=== PATIENT | male | born 1945 | race Caucasian/White ===

== ENCOUNTER 2018-02-24 10:11 | Emergency (ER) | payer OTHER ==
[~2018-02-24] VITALS: Ht 170.2 cm; Wt 63.5 kg
[~2018-02-24 10:11] MED LIST: ACCUPRIL PT; ACET325 PT; ACET325UDC; ALBU.083IS IH; ALBU3IS INH; AMOCLA875 PT; AMOX500; AZIT200SU GT; Abreva2 GM; Abreva2 GM TOP; Augmentin 500-1 EACH PO; BISA10S; BISA10S PR; CHLGLU.12S; CODGUAEL PT; CVS DISPOSABLE399 ML; CVS DISPOSABLE399 ML PR; Compro25 MG RC; DIPH12.5EL; DIPH12.5EL PT; DOXE10; DOXE10 PT; FIBERSOURCE; FURO20; Furosemide20 MG PT; GUAI100SY GT; HYDHOMSY PO; HYDROCODONE AP; IBUP400 OT; Ibuprofen Ib200 MG PT; KETO15TC; KETO15TC TOP; LAVAP17G PT; LEVFLO250; LEVFLO500 PO; LEVFLO500 PT; LEVO750 PO; LIDO4TC; LOPE2C; LOPE2C PT; Loperamide2 MG PT; METO10 PT; METO5A PT; MILK OF MAGNESIA; MUPI2TC; MUPI2TC TOP; Milk Of Ma400 MG/5 M PT; NYSTATIN POWDER; PANT40 PT; POTA20LUD; POTA20LUD PT; POTASSIUM; POTASSIUM PT; PRIM250; PRIM250 PT; PRIMIDONE PT; PROC25S; PROC25S PR; PROM6.25SY PO; Pedi-Dri 100,0060 GM TOP; Periogard473 ML TOP; QUIN10; QUIN10 PT; RANI150EL; ROBITUSSIN COU237 ML PT; ROBITUSSIN DM; RXPROMSY PO; SILVER NITRATE; SODPHOSO; TRIPLE ANTIBIO1 EACH TP; Triple Antibi28.4 G1 TP; ZANTAC; ZINCODVICR TOP; Zyrtec10 MG PT; [UNRECOGNIZED DRUG - OTHER]; [UNRECOGNIZED DRUG - OTHER]; [UNRECOGNIZED DRUG - REMARK]; [UNRECOGNIZED DRUG - REMARK]
[2018-02-24 12:40] LABS: BASOPHILS ABSOLUTE AUTO 0.05 K/mm3 (0.00-0.23); BASOPHILS PERCENT AUTO 0 % (0-2); EOSINOPHILS ABSOLUTE AUTO 0.01 K/mm3 (0.00-0.68); EOSINOPHILS PERCENT AUTO 0 % (0-6); Hematocrit 39.7 % (37.0-53.0); Hemoglobin 13.6 g/dL (13.5-17.5); IMMATURE GRAN ABSOLUTE AUTO 0.04 K/mm3 (0.00-0.10); IMMATURE GRAN PERCENT AUTO 0 % (0-1); LYMPHOCYTES ABSOLUTE AUTO 0.94 K/mm3 (0.84-5.20); LYMPHOCYTES PERCENT AUTO 8 % (21-46); MONOCYTES ABSOLUTE AUTO 1.78 K/mm3 (0.16-1.47); MONOCYTES PERCENT AUTO 16 % (4-13); Mean Corpuscular HGB 36.2 pg (26.0-34.0); Mean Corpuscular HGB Conc 34.3 g/dL (31.5-36.5); Mean Corpuscular Volume 106 fL (80-100); Mean Platelet Volume 10.7 fL (9.1-12.4); NEUTROPHILS ABSOLUTE AUTO 8.57 K/mm3 (1.96-9.15); NEUTROPHILS PERCENT AUTO 75 % (41-73); Platelet Count 255 K/mm3 (150-400); RDW Coefficient Variation 12.8 % (11.7-14.2); RDW Standard Deviation 49.5 fL (35.1-46.3); Red Blood Cell Count 3.76 M/mm3 (4.30-5.90); White Blood Cell Count 11.39 K/mm3 (4.00-11.30)
[2018-02-24 13:01] LABS: Alanine Aminotransfer (ALT/SGP 41 U/L (12-78); Albumin/Globulin Ratio 0.6 (0.8-1.8); Alk Phos 165 U/L (50-136); Anion Gap 5 mmol/L (6-16); Aspartate Aminotrans (AST/SGOT 19 U/L (12-37); Bilirubin, Total 0.5 mg/dL (0.1-1.0); Blood Urea Nitrogen 15 mg/dL (8-24); CO2, Blood 30 mmol/L (21-32); Calcium, Blood 8.1 mg/dL (8.5-10.1); Chloride, Blood 93 mmol/L (98-108); Creatinine, Blood 0.42 mg/dL (0.60-1.20); Globulin, Blood 5.1 g/dL (2.2-4.0); Glomerular Filtration Rate >60 (60-); Glucose, Blood 114 mg/dL (70-99); Potassium, Blood 4.6 mmol/L (3.5-5.5); Sodium, Blood 128 mmol/L (136-145); Total Protein, Blood 8.1 g/dL (6.4-8.2); Troponin I <0.015 ng/mL (0.000-0.040)
[2018-02-24] MEDS ORDERED: Zithromax200 MG/5 M PO (13:20)
[2018-02-24] MEDS ORDERED: CETI5 PO (23:52)
[2018-02-24] MEDS ORDERED: DOCU100 PT (23:54)
== END 2018-02-24 13:52 | disposition home or self-care (01) ==
LOC: ER 10:11
PROVIDERS: Physician Assistant
DX: J18.9 Pneumonia, unspecified organism (principal); Z88.5 Allergy status to narcotic agent
CPT/HCPCS: 36415; 71046; 80053; 84484; 85025; 93005; 93010; 94640; 96372; 99284-25; J0696

== ENCOUNTER 2018-02-24 21:57 | Inpatient (IN) | payer OTHER ==
[~2018-02-24] VITALS: Ht 170.2 cm; Wt 64.7 kg
[~2018-02-24 21:57] MED LIST changes: +Zithromax200 MG/5 M PO
[2018-02-24 23:43] LABS: BASOPHILS ABSOLUTE AUTO 0.06 K/mm3 (0.00-0.23); BASOPHILS PERCENT AUTO 1 % (0-2); EOSINOPHILS ABSOLUTE AUTO 0.03 K/mm3 (0.00-0.68); EOSINOPHILS PERCENT AUTO 0 % (0-6); Hematocrit 39.9 % (37.0-53.0); Hemoglobin 13.4 g/dL (13.5-17.5); IMMATURE GRAN ABSOLUTE AUTO 0.03 K/mm3 (0.00-0.10); IMMATURE GRAN PERCENT AUTO 0 % (0-1); LYMPHOCYTES ABSOLUTE AUTO 0.48 K/mm3 (0.84-5.20); LYMPHOCYTES PERCENT AUTO 5 % (21-46); MONOCYTES ABSOLUTE AUTO 1.25 K/mm3 (0.16-1.47); MONOCYTES PERCENT AUTO 13 % (4-13); Mean Corpuscular HGB 36.4 pg (26.0-34.0); Mean Corpuscular HGB Conc 33.6 g/dL (31.5-36.5); Mean Corpuscular Volume 108 fL (80-100); Mean Platelet Volume 10.5 fL (9.1-12.4); NEUTROPHILS ABSOLUTE AUTO 7.95 K/mm3 (1.96-9.15); NEUTROPHILS PERCENT AUTO 81 % (41-73); Platelet Count 220 K/mm3 (150-400); RDW Coefficient Variation 12.7 % (11.7-14.2); RDW Standard Deviation 51.3 fL (35.1-46.3); Red Blood Cell Count 3.68 M/mm3 (4.30-5.90)
[2018-02-24] MEDS ORDERED: CETI5 PO (23:52)
[2018-02-24] MEDS ORDERED: DOCU100 PT (23:54)
[2018-02-25 00:02] LABS: Alanine Aminotransfer (ALT/SGP 38 U/L (12-78); Albumin, Blood 3.1 g/dL (3.4-5.0); Albumin/Globulin Ratio 0.6 (0.8-1.8); Alk Phos 158 U/L (50-136); Anion Gap 7 mmol/L (6-16); Aspartate Aminotrans (AST/SGOT 19 U/L (12-37); Bilirubin, Total 0.4 mg/dL (0.1-1.0); Blood Urea Nitrogen 18 mg/dL (8-24); Bun/Creatinine Ratio 39.4 (12.0-20.0); CO2, Blood 29 mmol/L (21-32); Calcium, Blood 8.1 mg/dL (8.5-10.1); Chloride, Blood 89 mmol/L (98-108); Creatinine, Blood 0.46 mg/dL (0.60-1.20); Globulin, Blood 5.2 g/dL (2.2-4.0); Glomerular Filtration Rate >60 (60-); Glucose, Blood 135 mg/dL (70-99); Potassium, Blood 4.7 mmol/L (3.5-5.5); Sodium, Blood 125 mmol/L (136-145); Total Protein, Blood 8.3 g/dL (6.4-8.2)
--- NOTE | 2018-02-25 03:54 | NUR ---
PT TRANSFER TO UNIT. ASSUMED CARE OF PT APROX 0200. PT IS DEVELOPMENTALLY DELAYED, BUT ALERT. PT HAS BEHAVIOUR ISSUES AND CONTINUOUSLY PULLS ON ANY LINES OR CORDS. PT WAS ADMITTED DUE TO PNA. IV ACCESS WAS NOT ABLE TO BE OBTAINED AT THIS TIME. PT HAS A PEG TUBE FOR FEEDINGS AND MEDS. TELE PLACED, ST IN THE 100'S. BP 151/81. NO EDEMA NOTED ON ASSESSMENT. L/S COARSE W/RHONCHI T/O, PT HAS COPIOUS AMOUNTS OF SPUTUM, SUCTION IS SET UP IN THE ROOM, HOWEVER PT DOES NOT LIKE TO BE SUCTIONED AND IT IS DIFFICULT TO HELP CLEAR HIS AIR WAY. PT IS ON 6L NC W/STATS AT 90% BT PRESENT AND HYPOACTIVE, PEG TUBE IS PLACED IN THE LEFT LOWER QUAD, ABD IS SOFT AND NONTENDER TO PALP. CALL LIGHT IN REACH, BED IS LOCKED AND LOW, WILL CONTINUE TO MONITOR.
[2018-02-25 05:48] LABS: Hematocrit 37.7 % (37.0-53.0); Hemoglobin 12.6 g/dL (13.5-17.5); Mean Corpuscular HGB 35.8 pg (26.0-34.0); Mean Corpuscular HGB Conc 33.4 g/dL (31.5-36.5); Mean Corpuscular Volume 107 fL (80-100); Mean Platelet Volume 11.1 fL (9.1-12.4); Platelet Count 230 K/mm3 (150-400); RDW Coefficient Variation 12.7 % (11.7-14.2); RDW Standard Deviation 50.4 fL (35.1-46.3); Red Blood Cell Count 3.52 M/mm3 (4.30-5.90)
[2018-02-25 06:04] LABS: Anion Gap 5 mmol/L (6-16); Blood Urea Nitrogen 14 mg/dL (8-24); Bun/Creatinine Ratio 33.3 (12.0-20.0); CO2, Blood 30 mmol/L (21-32); Calcium, Blood 8.2 mg/dL (8.5-10.1); Chloride, Blood 92 mmol/L (98-108); Creatinine, Blood 0.42 mg/dL (0.60-1.20); Glomerular Filtration Rate >60 (60-); Glucose, Blood 121 mg/dL (70-99); Potassium, Blood 4.9 mmol/L (3.5-5.5); Sodium, Blood 127 mmol/L (136-145)
--- NOTE | 2018-02-25 07:39 | NUR ---
SHIFT SUMMARY. NO ACUTE CHANGES NOTED, PT'S O2 REQUIREMENTS HAVE DECREASED FROM 6L NC TO 3.5 L NC. PT L/S STILL CONSIST OF COARSE RHONCHI T/O, PT HAS REQURIED SUCTIONING WELL. PT'S VS HAVE BEEN STABLE T/O THIS SHIFT. CAREGIVER AT THE BEDSIDE T/O SHIFT. PT IS A VERY HIGH ASPRIATION RISK, HOB AT 30 DEGREE. CALL LIGHT IN REACH, BED IS LOCKED AND LOW, WILL CONTINUE TO MONITOR UNTIL REPORT IS GIVEN TO ONCOMING RN.
--- NOTE | 2018-02-25 08:03 | NUR ---
CARE ASSUMPTION PT NONVERBAL. OPENS EYES AND TRACKS. PT VERY SLEEPY AT THIS TIME. WAKES W/ COUGH PRODUCING THICK WHITE SPUTUM. LUNG SOUNDS COARSE W/ CRACKLES AND EXP WHEEZE. SPO2 > 92% ON 2.5L NC. RT IN ROOM FOR BREATHING TX AT THIS TIME. CAREGIVER AT BEDSIDE, STATES PT TO NORMALLY RECIEVE VEST CPT X2 DAY. WILL CONTINUE TO MONITOR AND PROVIDE CARE.
--- NOTE | 2018-02-25 20:08 | NUR ---
SHIFT SUMMARY PT ALERT, OPENS EYES TO SOUND. PT NONVERBAL, UNABLE TO ANSWER Y/N QUESTIONS. PT EXT'S CONTRACTED W/ LROM. ATTENDS IN PLACE. PT INCONTINENT OF BOWEL AND URINE. PT PASSING MULTIPLE LOOSE, BROWN/GREEN/YELLOW BM'S T/O SHIFT. PT RECIEVING INTERMITTENT TUBE FEEDINGS VIA J-TUBE IN L ABD QUAD. Q2H REPOSITIONING PROVIDED THOUGH PT PREFERS R SIDE AND REPOSITIONS SELF ONTO R SIDE. PT GRABBING AND PULLING AT LINES. 14/09 CAREGIVER ASSISTING AT KEEPING LINES IN PLACE. LUNG SOUNDS COARSE W/ CRACKLES AND EXP WHEEZE. BREATHING TX'S PER RT T/O SHIFT WELL VEST THERAPY. PT PRODUCING COPIOUS AMOUNTS OF THICK WHITE SPUTUM REQUIRING SUCTIONING THAT PT SWALLOWS IF NOT QUICKLY SUCTIONED. SPO2 > 92% ON 2L NC. MONITOR SHOWS NSR, HR 90'S. REPORT GIVEN TO NOC SHIFT RN WHO HAS ASSUMED CARE OF PT.
[2018-02-26 04:20] LABS: BASOPHILS ABSOLUTE AUTO 0.05 K/mm3 (0.00-0.23); BASOPHILS PERCENT AUTO 1 % (0-2); EOSINOPHILS ABSOLUTE AUTO 0.02 K/mm3 (0.00-0.68); EOSINOPHILS PERCENT AUTO 0 % (0-6); Hematocrit 37.3 % (37.0-53.0); Hemoglobin 12.6 g/dL (13.5-17.5); IMMATURE GRAN ABSOLUTE AUTO 0.02 K/mm3 (0.00-0.10); IMMATURE GRAN PERCENT AUTO 0 % (0-1); LYMPHOCYTES ABSOLUTE AUTO 0.87 K/mm3 (0.84-5.20); LYMPHOCYTES PERCENT AUTO 11 % (21-46); MONOCYTES ABSOLUTE AUTO 1.33 K/mm3 (0.16-1.47); MONOCYTES PERCENT AUTO 16 % (4-13); Mean Corpuscular HGB 36.2 pg (26.0-34.0); Mean Corpuscular HGB Conc 33.8 g/dL (31.5-36.5); Mean Corpuscular Volume 107 fL (80-100); Mean Platelet Volume 10.3 fL (9.1-12.4); NEUTROPHILS ABSOLUTE AUTO 5.84 K/mm3 (1.96-9.15); NEUTROPHILS PERCENT AUTO 72 % (41-73); Platelet Count 240 K/mm3 (150-400); RDW Coefficient Variation 12.6 % (11.7-14.2); RDW Standard Deviation 49.6 fL (35.1-46.3); Red Blood Cell Count 3.48 M/mm3 (4.30-5.90); White Blood Cell Count 8.13 K/mm3 (4.00-11.30)
[2018-02-26 04:36] LABS: Anion Gap 7 mmol/L (6-16); Blood Urea Nitrogen 11 mg/dL (8-24); Bun/Creatinine Ratio 26.2 (12.0-20.0); CO2, Blood 29 mmol/L (21-32); Calcium, Blood 8.2 mg/dL (8.5-10.1); Chloride, Blood 94 mmol/L (98-108); Creatinine, Blood 0.42 mg/dL (0.60-1.20); Glomerular Filtration Rate >60 (60-); Glucose, Blood 94 mg/dL (70-99); Potassium, Blood 4.5 mmol/L (3.5-5.5); Sodium, Blood 130 mmol/L (136-145)
--- NOTE | 2018-02-26 06:07 | NUR ---
SHIFT SUMMARY PT ALERT TO SELF AND STAFF DURING THE NIGHT. HE WAS NON VERBAL T/O SHIFT. PT HAD 24 HOUR CAREGIVERS FROM [facility] PRESENT AT BEDSIDE T/O SHIFT. HIS VITALS REMAINED STABLE AND NO ACUTE CHANGES TO MENTATION OR VITALS DURING THE NIGHT. PT WAS TURNED Q2 HOURS, BUT HE TENDS TO MOVE BACK TO HIS RIGHT SIDE ON HIS OWN. SKIN LOOKS GOOD. PT HAS 2X SIDE RAILS IN PLACE AND BED HAS BEEN LEFT IN THE LOWEST POSITION. HE RECIEVES HIS MEDS THROUGH HIS JTUBE AND THIS WENT WITHOUT ISSUE. PT NOT ABLE TO USE CALL LIGHT BUT FREQUENT ROUNDING WAS DONE. WILL CONTINUE TO MONITOR UNTIL HANDOFF TO DAYSHIFT RN.
--- NOTE | 2018-02-26 17:57 | NUR ---
SHIFT SUMMARY PT CONTINUES TO BE ALERT AND NONVERBAL AT BASELINE. SPO2 > 92% ON 1L NC WHEN O2 ON. PT PULLS OFF O2, AND DESATS TO 88% OFF OF O2. 14/09 CAREGIVER FROM [facility] AT PT BEDSIDE TO ASSIST W/ PT CARE AND ASSURE THAT O2 REMAINS ON PT. PT REQUIRING FREQUENT SUCTIONING OF THICK, WHITE SPUTUM. PT NPO W/ PEG TUBE IN LLQ. JEVITY 1.5 TF PROVIDED PER ORDERS. PT TOLERATING WELL. PT HAVING LOOSE, GREEN/BROWN BM'S T/O SHIFT. PT INCONTINENT OR URINE AND BOWEL, WEARING ATTENDS. PRN BELLO CARE PROVIDED T/O SHIFT. MONITOR SHOWS NSR/ST, HR 90-110. WILL CONTINUE TO PROVIDE CARE UNTIL REPORT OFF TO NOC SHIFT RN.
--- NOTE | 2018-02-27 03:43 | NUR ---
SHIFT SUMMARY PT SLEPT OFF AND ON DURING THE NIGHT. THERE WERE NO ACUTE CHANGES TO VITALS OR LOC. HE IS STILL ALERT TO PERSON AND PLACE. PT HAD TO WEAR SOFT WRIST RESTRAINTS TONIGHT UNTIL ABOUT MIDNIGHT. HE PULLED HIS JTUBE WELL WOULD NOT LEAVE OXYGEN IN PLACE. (SEE DOCUMENTATION) PT NIGHTSHIFT CAREGIVER CAME IN AND PROVIDED DIRECT ONE ON ONE CARE AND PT WAS ABLE TO HAVE RESTRAINTS REMOVED FROM MIDNIGHT TO PRESENT WITHOUT ISSUE. PT VITALS HAVE REMAINED STABLE T/O SHIFT. PT DID NOT APPEAR TO BE IN ANY PAIN T/O SHIFT. PT WILL CONTINUE TO BE MONITORED UNTIL HANODFF TO DAYSMIFT RN.
--- NOTE | 2018-02-27 08:04 | NUR ---
AM NOTE. ASSUMED CARE OF PT ARPOX 0700. PT IS A&O TO SELF AND CAREGIVERS. PT IS NONVERBAL ADMITTED FOR PNA. PT IS STILL PRODUCING COPIOUS AMOUNTS OF SPUTUM BUT REQUIRES SUCTION TO CLEAR HIS AIRWAY. TELE INTACT, SR IN THE 90'S PER [employer] REPRESENTATIVE. BP 139/61. NO EDEMA NOTED ON ASSESSMENT. L/S CORSE T/O, PT IS ON 2.5 L NC W/ 02 STAT AT 90-92%. BT PRESENT AND HYPOACTIVE, J-TUBE IN PLACE. ABD IS SOFT AND NONTENDER TO PALP. CAREGIVE IN THE ROOM AT THIS TIME, SOFT RESTRAINS AVAILABLE IT PT ATTEMTS TO PULL ON HIS LINES/CORDS/TUBES AND IS NOT ABLE TO BE REDIRECTED. PT IS CURRENTLY NOT IN THE RESTRAINTS. CALL LIGHT IN REACH, BED IS LOCKED AND LOW, WILL CONTINUE TO MONTIOR.
--- NOTE | 2018-02-27 18:49 | NUR ---
SHIFT SUMMARY. NO ACUTE CHANGES NOTED THIS SHIFT. PT HAS SLEPT MOST OF THIS SHIFT, NOT NEEDING THE SOFT WRIST RESTRAINTS AT ALL. PT'S CAREGIVERS HAVE BEEN IN THE ROOM T/O THIS SHIFT. ORAL CARE WAS PERFORMED THIS AM, AND PRN SUCTIONING. CALL LIGHT IN REACH, BED IS LOCKED AND LOW, WILL CONTINUE TO MONITOR UNTIL REPORT IS GIVEN TO ONCOMING RN.
--- NOTE | 2018-02-28 05:34 | NUR ---
SHIFT SUMMARY PT SLEPT T/O SHIFT. HE WAS ABLE TO TOLERATE O2 AND HIS SATS REMAINED AT 90 AND ABOVE FOR THE MAJORITY OF THE SHIFT. HE HAD HIS CAREGIVER FROM [facility] AT THE BEDSIDE AND HIS NEEDS HAVE BEEN MET PER STAFF. PT WAS NOT OBSERVED TO BE IN ANY PAIN OR DISCOMFORT. HIS VITALS REMAINED STABLE. HE DID NOT APPEAR TO BE IN ANY DISTRESS T/O THE SHIFT. PT HAS 2X SIDE RAILS IN PLACE, BED IN LOWEST POSITION AND CALL LIGHT IN REACH. PT UNABLE TO USE CALL LIGHT SO ROUNDING WAS DONE FREQUENTLY. PT WILL CONTINUE TO BE MONITORED UNITL HANDOFF TO DAYSHIFT RN.
[2018-02-28] MEDS ORDERED: LISI5 PT (09:33)
[2018-02-28] MEDS ORDERED: DOXE10 PT (09:33)
--- NOTE | 2018-02-28 10:07 | NUR ---
PCU DAYSHIFT ASSUMED CARE OF PT APPROX. 0700. PT CONTINUE TO BE NONVERBAL BUT RESPONSIVE. ASSESSMENT COMPLETED. VITAL SIGNS STABLE. PT ON ROOM AIR WITH OXYGEN SATS IN 90'S. PEG TUBE IN PLACE AND PATENT, FLUSHES. FEEDING CURRENLTY RUNNING ORDERED. CAREGIVER AT BEDSIDE. PMD IN TO SEE PT THIS MORNING AND DISCHARGE ORDERS RECIEVED. DISCHARGE PROCESS COMPLETED. MEDICATIONS CALLED TO PHARMACY. DISCHARGE INFORMATION REVIEWED WITH PT AND CAREGIVER. QUESTIONS ANSWERED. WILL CONTINUE TO MONITOR PT UNTIL DEPARTING UNIT.
--- NOTE | 2018-02-28 12:17 | NUR ---
DISCHARGE PT ESCORTED BY PEER STAFF AND STAFF FROM [facility] VIA WHEELCHAIR TO AUTOMOBILE TO RETURN HOME TO [facility] NO S/SX OF ACUTE DISTRESS UPON D/C.
== END 2018-02-28 12:29 | disposition home or self-care (01) | DRG 177 ==
LOC: ER 21:57 → PCU 23:46
PROVIDERS: Internal Medicine; Nurse Practitioner Acute Care; Physician Assistant; ADMIT Internal Medicine
DX: J69.0 Pneumonitis due to inhalation of food and vomit (principal); J96.01 Acute respiratory failure with hypoxia; R53.2 Functional quadriplegia; E87.1 Hypo-osmolality and hyponatremia; F89 Unspecified disorder of psychological development; I10 Essential (primary) hypertension
CPT/HCPCS: 31720; 36415; 80048; 80053; 83605; 83735; 84145; 85025; 85027; 87040; 87070; 87205; 94640; 94667; 94668; 94760; 94762; 99285-25; J1650

== ENCOUNTER 2018-03-06 22:42 | Inpatient (IN) | payer OTHER ==
[~2018-03-06] VITALS: Ht 170.2 cm; Wt 66.2 kg
[~2018-03-06 22:42] MED LIST changes: +CETI5 PO; +DOCU100 PT; +LISI5 PT
[2018-03-06 22:53] LABS: PCO2 Arterial 58.5 mmHg (35-45); PO2 Arterial 57.5 mmHg (80-100); pH Blood Arterial 7.39 (7.35-7.45)
[2018-03-06 23:49] LABS: BASOPHILS ABSOLUTE AUTO 0.03 K/mm3 (0.00-0.23); BASOPHILS PERCENT AUTO 0 % (0-2); EOSINOPHILS ABSOLUTE AUTO 0.02 K/mm3 (0.00-0.68); EOSINOPHILS PERCENT AUTO 0 % (0-6); Hematocrit 39.2 % (37.0-53.0); Hemoglobin 13.1 g/dL (13.5-17.5); IMMATURE GRAN ABSOLUTE AUTO 0.04 K/mm3 (0.00-0.10); IMMATURE GRAN PERCENT AUTO 0 % (0-1); LYMPHOCYTES ABSOLUTE AUTO 0.64 K/mm3 (0.84-5.20); LYMPHOCYTES PERCENT AUTO 6 % (21-46); MONOCYTES ABSOLUTE AUTO 1.22 K/mm3 (0.16-1.47); MONOCYTES PERCENT AUTO 11 % (4-13); Mean Corpuscular HGB Conc 33.4 g/dL (31.5-36.5); Mean Corpuscular Volume 108 fL (80-100); Mean Platelet Volume 9.7 fL (9.1-12.4); NEUTROPHILS ABSOLUTE AUTO 8.73 K/mm3 (1.96-9.15); NEUTROPHILS PERCENT AUTO 82 % (41-73); Platelet Count 339 K/mm3 (150-400); RDW Coefficient Variation 12.4 % (11.7-14.2); RDW Standard Deviation 49.2 fL (35.1-46.3); Red Blood Cell Count 3.64 M/mm3 (4.30-5.90); White Blood Cell Count 10.68 K/mm3 (4.00-11.30)
[2018-03-07 00:07] LABS: Alanine Aminotransfer (ALT/SGP 55 U/L (12-78); Albumin, Blood 2.8 g/dL (3.4-5.0); Albumin/Globulin Ratio 0.5 (0.8-1.8); Alk Phos 162 U/L (50-136); Anion Gap 6 mmol/L (6-16); Aspartate Aminotrans (AST/SGOT 30 U/L (12-37); Bilirubin, Total 0.3 mg/dL (0.1-1.0); Blood Urea Nitrogen 15 mg/dL (8-24); Bun/Creatinine Ratio 36.1 (12.0-20.0); CO2, Blood 31 mmol/L (21-32); Calcium, Blood 8.2 mg/dL (8.5-10.1); Chloride, Blood 85 mmol/L (98-108); Creatinine, Blood 0.42 mg/dL (0.60-1.20); Globulin, Blood 5.4 g/dL (2.2-4.0); Glomerular Filtration Rate >60 (60-); Glucose, Blood 159 mg/dL (70-99); Potassium, Blood 5.1 mmol/L (3.5-5.5); Sodium, Blood 122 mmol/L (136-145); Total Protein, Blood 8.2 g/dL (6.4-8.2)
[2018-03-07 01:13] LABS: Source, Urine Catheter
[2018-03-07 01:26] LABS: Bilirubin, Urine Neg (Neg); Blood, Urine Neg (Neg); Glucose Qualitative, Urine Neg (Neg); Ketones, Urine Neg (Neg); Leukocyte Esterase, Urine Neg (Neg); Nitrite, Urine Neg (Neg); Protein, Urine 2+ (Neg); Specific Gravity, Urine 1.015 (1.003-1.022); Urobilinogen, Urine 1+ (Normal)
[2018-03-07 01:31] LABS: Appearance, Urine Clear (Clear); Color, Urine Yellow (P-Yellow)
[2018-03-07 01:32] LABS: Amorphous Mod ({null, 0-Heavy}); Bacteria Mod /hpf; Mucus Light ({null, 0-Heavy}); Red Blood Cells, Urine 0-2 /hpf (0-2); Squamous Epithelial Cells Not Seen /hpf (Few); White Blood Cells, Urine 0-2 /hpf (0-5)
[2018-03-07 01:33] LABS: Hyaline Casts 0-2 /lpf (0-2)
--- NOTE | 2018-03-07 01:45 | NUR ---
ASSESSMENT PT ADMITTED FROM ER. DX RESP FAILURE WITH HYPOXIA. PT IS A DEVELOPMENTLY DELAYED FROM [facility] FOR THE HANDICAP. PT ARRIVED VIA GURNEY WITH INSTRUCTIONAL TECHNOLOGY TEACHER. LUNGS COARSE THROUGHOUT ON BIPAP 12/6 FIO2 40%. PT OPEN EYES TO VERBAL STIMULI. PT IS NONVERBAL PER INSTRUCTIONAL TECHNOLOGY TEACHER. RT SUCTIONED LARGE AMT BLOODY MOSES SECRECTIONS VIA NASAL TRUMPET TO RIGHT NARE. HEART RATE REGULAR BUT TACHY IN THE 100'S. BP STABLE. EDEMA NOTED TO BILAT LOWER EXT. SKIN CLEAR. CONTRACTORS NOTED TO BILAT LEGS AND ARMS. INCONT URINE ATTENDS CHANGED. BT+ ABD FLAT. BUTTON PEG TUBE NOTED TO LEFT UPPER QUAD, CLAMPED. IV 22G TO RIGHT THUMB SALINE LOCKED, SITE CLEAR. IV 20G TO LEFT HAND WITH ANTIBIOTIC INFUSING, SITE CLEAR. APPLIED CONDOM CATH. RIGHT FOOT WITH REDNESS FROM IV PLACED BY EMS. DELAYED CAP REFILL TO BILAT LOWER EXT.
[2018-03-07 01:56] LABS: Adenovirus Not Detected (NOT DETECT); Bordetella pertussis Not Detected (NOT DETECT); Chlamydophila pneumoniae Not Detected (NOT DETECT); Coronavirus 229E Not Detected (NOT DETECT); Coronavirus HKU1 Not Detected (NOT DETECT); Coronavirus NL63 Not Detected (NOT DETECT); Coronavirus OC43 Not Detected (NOT DETECT); Human Metapneumovirus Not Detected (NOT DETECT); Human Rhinovirus/Enterovirus Not Detected (NOT DETECT); Influenza A/2009-H1 Not Detected (NOT DETECT); Influenza A/H1 Not Detected (NOT DETECT); Influenza A/H3 Not Detected (NOT DETECT); Influenza B Not Detected (NOT DETECT); Mycoplasma pneumoniae Not Detected (NOT DETECT); Parainfluenza Virus 1 Not Detected (NOT DETECT); Parainfluenza Virus 2 Not Detected (NOT DETECT); Parainfluenza Virus 3 Not Detected (NOT DETECT); Parainfluenza Virus 4 Not Detected (NOT DETECT); Respiratory Syncytial Virus Not Detected (NOT DETECT)
[2018-03-07] MEDS ORDERED: Milk Of Ma400 MG/5 M PT (02:15)
[2018-03-07] MEDS ORDERED: CVS DISPOSABLE399 ML PR (02:16)
[2018-03-07] MEDS ORDERED: Pedi-Dri 100,0060 GM TOP (02:17)
[2018-03-07] MEDS ORDERED: PROC25S PR (02:18)
[2018-03-07] MEDS ORDERED: VICKS VAPORUB O50 GM TOP (02:19)
[2018-03-07] MEDS ORDERED: DIAPER RASH OIN56 GM TOP (02:19)
--- NOTE | 2018-03-07 02:30 | NUR ---
CALLAHAN CATH 16 FR CALLAHAN CATH PLACED WITHOUT DIFFICULTY BY RIKKI AYALA RN. YELLOW URINE DRAINING. UA SENT IN ER.
[2018-03-07 03:06] LABS: Influenza A Not Detected (NOT DETECT)
--- NOTE | 2018-03-07 03:44 | NUR ---
IV/ 3% SALINE NEW IV PLACED 18G BY CARLEY ROMERO RN. 3% SALINE STARTED AT 30 ML/HR
--- NOTE | 2018-03-07 04:15 | NUR ---
REASSESSMENT PT RESTING QUIETLY, LUNCH TRUCK DRIVER AT BEDSIDE. LUNGS CONT COARSE. RT SUCTIONED VIA NASAL TRUMPET TO RIGHT NARE. PT WOKE UP TO LUNCH TRUCK DRIVER TALKING AND PULLED BIPAP OFF. REPLACED BIPAP AFTER MOUTH CARE. PT REPOSITIONED. VSS.
--- NOTE | 2018-03-07 06:17 | NUR ---
SHIFT SUMMARY PT ADMITTED TO ICU THIS AM. BILAT ON BIPAP 01/27 WITH FIO2 AT 40%. SUCTIONED FREQUENTLY TO NARE WITH NASAL TRUMPET AND ORAL FOR MOSES/BLOODY SECRECTIONS. 3% SALINE INFUSING AT 30ML/HR. LABS JUST DRAWN FOR FOLLOW UP. ANTIBOTICS INFUSING. VSS. SOFTWARE SALES EXECUTIVE AT BEDSIDE. CALLAHAN CATH PLACED. REPORT TO ON COMING NURSE
[2018-03-07 06:19] LABS: Hematocrit 32.7 % (37.0-53.0); Mean Corpuscular HGB 35.9 pg (26.0-34.0); Mean Corpuscular HGB Conc 33.6 g/dL (31.5-36.5); Mean Corpuscular Volume 107 fL (80-100); Mean Platelet Volume 9.7 fL (9.1-12.4); Platelet Count 321 K/mm3 (150-400); RDW Coefficient Variation 12.3 % (11.7-14.2); RDW Standard Deviation 48.2 fL (35.1-46.3); Red Blood Cell Count 3.06 M/mm3 (4.30-5.90)
[2018-03-07 06:35] LABS: Alanine Aminotransfer (ALT/SGP 46 U/L (12-78); Albumin, Blood 2.2 g/dL (3.4-5.0); Albumin/Globulin Ratio 0.5 (0.8-1.8); Alk Phos 122 U/L (50-136); Anion Gap 4 mmol/L (6-16); Aspartate Aminotrans (AST/SGOT 20 U/L (12-37); Bilirubin, Total 0.3 mg/dL (0.1-1.0); Blood Urea Nitrogen 13 mg/dL (8-24); Bun/Creatinine Ratio 31.3 (12.0-20.0); CO2, Blood 31 mmol/L (21-32); Calcium, Blood 7.5 mg/dL (8.5-10.1); Chloride, Blood 89 mmol/L (98-108); Creatinine, Blood 0.42 mg/dL (0.60-1.20); Globulin, Blood 4.5 g/dL (2.2-4.0); Glomerular Filtration Rate >60 (60-); Glucose, Blood 144 mg/dL (70-99); Potassium, Blood 5.3 mmol/L (3.5-5.5); Sodium, Blood 124 mmol/L (136-145); Total Protein, Blood 6.7 g/dL (6.4-8.2)
--- NOTE | 2018-03-07 07:30 | NUR ---
ASSUMED CARE ASSUMED CARE OF PATIENT. PATIENT CURRENTLY ON BIPAP. AROUSES WHEN STIMULATED BUT EASILY DRIFTS BACK TO SLEEP. PLAN TO CONTINUE TO MONITOR RESPITORY STATUS. PROVIDE BREAKS FROM BIPAP TOLERATED. PROVIDE SUCTIONING AND ORAL CARE NEEDED. WILL CONTINUE TO TURN PATIENT FREQUENTLY, MONITOR SKIN INTEGRITY AND PROVIDE SKIN CARE NEEDED. WILL NOTIFY PHYSICIANS OF ANY CHANGES.
--- NOTE | 2018-03-07 11:15 | NUR ---
PATIENT CONTINUES TO BE ON BIPAP. PATIENT RESTING QUIETLY. AROUSES WHEN STIMULATED. CURRENTLY WEARING BIPAP. CAREGIVER AT BEDSIDE.
[2018-03-07 16:27] LABS: Anion Gap 3 mmol/L (6-16); Blood Urea Nitrogen 9 mg/dL (8-24); Bun/Creatinine Ratio 18.6 (12.0-20.0); CO2, Blood 31 mmol/L (21-32); Calcium, Blood 7.7 mg/dL (8.5-10.1); Chloride, Blood 91 mmol/L (98-108); Creatinine, Blood 0.48 mg/dL (0.60-1.20); Glomerular Filtration Rate >60 (60-); Glucose, Blood 100 mg/dL (70-99); Potassium, Blood 4.6 mmol/L (3.5-5.5); Sodium, Blood 125 mmol/L (136-145)
--- NOTE | 2018-03-07 17:37 | NUR ---
SUMMARY PATIENT BECOMING MORE ACTIVE AND REACHING AT THINGS AT TIMES. CAREGIVERS IN AND OUT. TURNED PATIENT FREQUENTLY THROUGHOUT THE DAY. ORAL CARE AND NT SUCTIONING FREQUENTLY THROUGHOUT THE DAY. VSS. WILL GIVE REPORT TO ONCOMING SHIFT WHEN AVAILABLE.
[2018-03-07 20:28] LABS: Anion Gap 6 mmol/L (6-16); Blood Urea Nitrogen 8 mg/dL (8-24); Bun/Creatinine Ratio 16.5 (12.0-20.0); CO2, Blood 33 mmol/L (21-32); Calcium, Blood 7.6 mg/dL (8.5-10.1); Chloride, Blood 90 mmol/L (98-108); Creatinine, Blood 0.49 mg/dL (0.60-1.20); Glomerular Filtration Rate >60 (60-); Glucose, Blood 91 mg/dL (70-99); Potassium, Blood 4.3 mmol/L (3.5-5.5); Sodium, Blood 129 mmol/L (136-145)
--- NOTE | 2018-03-07 20:52 | NUR ---
ASSUMED CARE REPORT RECEIVED, CARE ASSSUMED. PT REMAINS ON BIPAP, NOTED TO HAVE A WEAK, WET COUGH. NT AND ORAL SUCTION COMPLETED. PT OPENS EYES TO NAME BUT NOT FOLLOWING COMMANDS. WITH SUCTIONING PT REACHES FOR FACE. CALLAHAN IN PLACE DRAINING YELLOW URINE. PT TOLERATES REPOSITIONING WITH MAX ASSIST. CAREGIVER ROUNDS TONIGHT, UPDATED WITH VITAL SIGNS UPON REQUEST.
[2018-03-08 04:35] LABS: PCO2 Arterial 59.8 mmHg (35-45); pH Blood Arterial 7.39 (7.35-7.45)
[2018-03-08 04:49] LABS: BASOPHILS ABSOLUTE AUTO 0.04 K/mm3 (0.00-0.23); BASOPHILS PERCENT AUTO 1 % (0-2); EOSINOPHILS ABSOLUTE AUTO 0.02 K/mm3 (0.00-0.68); EOSINOPHILS PERCENT AUTO 0 % (0-6); Hematocrit 33.1 % (37.0-53.0); IMMATURE GRAN ABSOLUTE AUTO 0.01 K/mm3 (0.00-0.10); IMMATURE GRAN PERCENT AUTO 0 % (0-1); LYMPHOCYTES ABSOLUTE AUTO 0.66 K/mm3 (0.84-5.20); LYMPHOCYTES PERCENT AUTO 10 % (21-46); MONOCYTES PERCENT AUTO 18 % (4-13); Mean Corpuscular HGB 36.3 pg (26.0-34.0); Mean Corpuscular HGB Conc 33.2 g/dL (31.5-36.5); Mean Corpuscular Volume 109 fL (80-100); Mean Platelet Volume 9.3 fL (9.1-12.4); NEUTROPHILS ABSOLUTE AUTO 4.88 K/mm3 (1.96-9.15); NEUTROPHILS PERCENT AUTO 72 % (41-73); Platelet Count 323 K/mm3 (150-400); RDW Coefficient Variation 12.7 % (11.7-14.2); RDW Standard Deviation 50.2 fL (35.1-46.3); Red Blood Cell Count 3.03 M/mm3 (4.30-5.90); White Blood Cell Count 6.81 K/mm3 (4.00-11.30)
[2018-03-08 05:09] LABS: Anion Gap 6 mmol/L (6-16); Blood Urea Nitrogen 7 mg/dL (8-24); Bun/Creatinine Ratio 14.6 (12.0-20.0); CO2, Blood 32 mmol/L (21-32); Calcium, Blood 7.6 mg/dL (8.5-10.1); Chloride, Blood 91 mmol/L (98-108); Creatinine, Blood 0.48 mg/dL (0.60-1.20); Glomerular Filtration Rate >60 (60-); Glucose, Blood 76 mg/dL (70-99); Magnesium, Blood 2.3 mg/dL (1.6-2.4); Phosphorus, Blood 2.8 mg/dL (2.5-4.9); Potassium, Blood 4.3 mmol/L (3.5-5.5); Sodium, Blood 129 mmol/L (136-145); Vancomycin, Trough 10.9 ug/mL (5.0-10.0)
--- NOTE | 2018-03-08 06:30 | NUR ---
DR. BERNAL AT BEDSIDE DR. BERNAL AT BEDSIDE THIS MORNING FOR ASSESSMENT. UPDATED ON PT CONDITION. NEW ORDER FOR FLOMAX AND TO D/C [place].
--- NOTE | 2018-03-08 07:15 | NUR ---
DR. BERNAL AT BEDSIDE FOR EVALUATION. NEW ORDERS PROVIDED.
--- NOTE | 2018-03-08 07:30 | NUR ---
RECEIVED REPORT FROM LIANET ANTONIO, AND ASSUMED CARE OF PT.
--- NOTE | 2018-03-08 07:35 | NUR ---
SUMMARY VITALS STABLE THROUGHOUT THE NIGHT. PT REQUIRING FREQUENT NT SUCTION, THOUGH DOES HAVE A COUGH ONCE NT SUCTION CATHETER REACHES BACK OF THROAT. PT ALSO NOTED TO SWALLOW ON SEVERAL OCCASIONS. PT UNABLE TO FOLLOW COMMANDS THROUGHOUGHT NIGHT, BUT DOES OPEN EYES SPONTANEOUSLY AND MOVE ARMS/LEGS PURPOSEFULLY. CAREGIVERS AND RNS FROM [facility] IN AND OUT THROUGHOUT NIGHT, UPDATED UPON REQUEST. REPORT GIVEN TO BETO DAY SHIFT RN.
--- NOTE | 2018-03-08 10:33 | NUR ---
NURSING SUMMARY PT DEVELOPMENTALLY DELAYED, MARPHAN'S SYNDROME, OPENS EYES TO VOICE, TRACKS PEOPLE WITH EYES AT TIMES, NON-VERBAL. SR ON MONITOR, HR 70'S AND 80'S. VSS. LUNGS CLEAR, DIMINISHED AT BASES, SUCTIONING VIA NT NEEDED, BIPAP 12/6 AND 40% FIO2. CALLAHAN IN PLACE, NEW ORDER FROM DR. BERNAL TO DISCONTINUE CALLAHAN. DISCONTINUED AT 1010 WITH 350 CC DARK YELLOW URINE, DEPENDS IN PLACE. ACCORDING TO CAREGIVERS, PT'S LAST BP WAS 03/04/18, GAVE MILK OF MAGNESIA THIS AM VIA G-TUBE. NPO. PT BEDRIDDEN AT BASELINE, CONTRACTURES NOTED TO BILATERAL ARMS/HANDS, LIKED FOR FOLD HIS LEGS UP AND CROSS THEM. TRACE REDNESS AND EDEMA NOTED TO RIGHT FOOT FROM PREVIOUS IV SITE. CURRENTLY HAS 3 IV SITES TO LEFT HAND 20G, RIGHT THUMB 22G, AND RIGHT UPPER ARM 18G. PER DR. BERNAL, CONSULTING DR. OROSCO FOR BIPAP AND POSSIBLE TRACH PLACEMENT.
--- NOTE | 2018-03-08 11:26 | NUR ---
ASSUMED CARE WHILE LIANET PÉREZ AT LUNCH. PATIENT PULLED OFF HIS BIPAP MASK, BUT PIETRO MORRELL REPLACED IT
--- NOTE | 2018-03-08 13:56 | NUR ---
CALLED DR. BERNAL RE: STATUS CHANGE TO PCU. WOULD FOR DR. OROSCO TO SEE PT FIRST.
--- NOTE | 2018-03-08 16:37 | NUR ---
DR. OROSCO AT BEDSIDE FOR EVALUATION.
--- NOTE | 2018-03-08 16:48 | NUR ---
TALKED TO DANA GUIDO RN, ([phone]) WITH [facility] RE: PT STATUS. THEY WANT PT TO REMAIN A FULL CODE. THEY ARE ABLE TO PERFORM DEEP SUCTIONING AT [facility] WITH A PHYSICIAN ORDER. PT'S APPOINTED HEALTHCARE REP IS JEANETTE SHELDON ([phone]) AND MAKES HEALTHCARE DECISIONS ON BEHALF OF THE PT. THE ENTIRE CARE TEAM AT [facility] MAKES LIFE CHANGING DECISIONS TOGETHER. DANA GUIDO TO TALK WITH JEANETTE AND THE TEAM RE: PT STATUS AND TREATMENT PLAN.
--- NOTE | 2018-03-08 18:12 | NUR ---
NURSING SUMMARY ALERT, TRACKING WITH EYES, NON-VERBAL, DEVELOPMENTALLY DELAYED, MARPHAN'S DISEASE, CONTRACTED. SR-ST 88-102, VSS. BIPAP 12/6-40% MOST OF THE DAY, CHANGED TO 3L O2 NC AT 1800, SATS [id number]%. NASAL TRUMPET IN PLACE TO LEFT NARES FOR DEEP SUCTIONING. G-TUBE BUTTON IN PLACE TO LEFT UPPER ABDOMEN, NPO AT THIS TIME. REMOVED CALLAHAN AT 1000, PT INCONTINENT OF URINE THREE TIMES SINCE REMOVAL. INCONTINENT OF STOOL TWICE TODAY, LARGE AMOUNTS OF LIQUID STOOL, C-DIFF SENT TO LAB. PT LIVES AT [facility], CONTACT TELEPHONE NUMBERS ON WHITE BOARD IN ROOM. THREE IV SITES.
--- NOTE | 2018-03-08 21:45 | NUR ---
REPORT TAKEN FROM PLANT OPERATIONS MANAGER ASAD. PT TO UNIT AND TRASNFERRED TO BED. PT IS NONVERBAL AT BASELINE. PT IS CONTRACTURED IN BED, IN POSITION ON L SIDE. PER PLANT OPERATIONS MANAGER PT DRAWS SELF INTO POSITION NO MATTER WHAT SIDE HE IS REPOSITIONED TO. PT IS SLEEPY ON ARRIVAL AND OPENS EYES TO VERBAL. CAREGIVER FROM [facility] IS AT BEDSIDE. REPORTS ANOTHER CAREGIVER WILL COME TO STAY T/O NIGHT WITH PT. RESP EVEN UNLABORED W/ 3L O2 VIA NC IN MOUTH. PT HAS NASAL TRUMPET IN PLACE TO HELP MAINTAIN AIRWAY. SATS >92%. PT IS ABLE TO CHANGE POSITION IN BED. WILL PERFORM Q2 TURNS NEEDED. CALL LIGHT IS IN REACH OF PT AND CAREGIVER.
--- NOTE | 2018-03-08 22:00 | NUR ---
: PT AWAKE, NON VERBAL, NON SPECIFIC VOCALIZATIONS. VSS, MOIST COUGH W/OUT PRODUCTION. G-TUBE ACCESSED, MEDS GIVEN W/OUT DIFFICULTY. LEAN ENGINEER HERE, ASSIST W/ADLs. COUGH LOUDER, MOISTER AFTER RESP RX, TURNING SIDE TO SIDE, ORALLY SUCTIONED FOR LG BEIGE SPUTUM, CLEARED. REPORT CALLED TO LIANET RICHARD, TRANSFERED TO ROOM U12 VIA BED ACCOMP BY LIANET.
--- NOTE | 2018-03-09 02:46 | NUR ---
RESTLESS PT HAS BEEN RESTLESS LAST 2 HOURS. CONSTANTLY CHANGING POSITION IN BED. PT ABLE TO SELF REPOSITION FROM SIDE TO SIDE W/ MINIMAL ASSISTANCE. SIDE RAILS UP FOR SAFETY. CARE GIVEN FROM INTERMEDIATE AT BEDSIDE. USES CALL LIGHT APPROPRIATELY FOR HELP IN REPOSITIONING. PT GIVEN TYLENOL AT THIS TIME FOR SIGNS OF RESTLESSNESS, AGITATION, AND DISCOMFORT. WILL REASSESS.
--- NOTE | 2018-03-09 05:25 | NUR ---
SHIFT SUMMARY PT RESTING IN ROOM. HAS SLEPT IN SHORT PERIODS ON AND OFF. PT HAS BEEN VERY RESTLESS T/O SHIFT. CONSTANTY SITTING UP TO CHANGE POSITIONS. PT WAS MEDICATED FOR PAINFUL AND RESTLESSNESS. CAREGIVER IN ROOM AT BEDSIDE FROM [facility] TO ASSIST WITH PT PULLING AT TUBES AND WIRES. PT CONTINUES TO SIT UP AND CHANGE POSITION FREQUENTLY FOR COMFORT. RESP EVEN MOSTLY UNLBOARED. WET PRODUCTIVE COUGH. PT HAS REQUIRED SOME ORAL SUCTIONING T/O NIGHT FOR PRODUCTIVE COUGH. NT SUCTIONING ONCE FOR EXCESSIVE MUCOUS PRODUCTION. CALL LIGHT IS IN REACH OF PT AND CAREGIVER.
[2018-03-09 05:58] LABS: Vancomycin, Trough 12.8 ug/mL (5.0-10.0)
--- NOTE | 2018-03-09 06:00 | NUR ---
G TUBE OUT IN ROOM TO CHECK PT FOR TURN AND G TUBE WAS NOTED TO BE PULLED OUT AT THIS TIME. HELP DESK OPERATOR CALLED AND PROVIDER CALLED. PROVIDER TO ROOM TO ASSESS SITE AND REINSERT TUBE. 18F BUTTON GTUBE REPLACED INTO SITE. RESIDUAL DRAWN AND FLUSHED. PT TOLERATED WELL. SITE CLEAN INTACT AND DRY. SOME BLOOD NOTED AROUND SITE AFTER INSERTION.
--- NOTE | 2018-03-09 11:36 | NUR ---
NURSING PCU DAYSHIFT: Assumed care of pt at approx 0700. Non-verbal, responds to verbal stimuli, gross movement of UE's though no fine motor skills. Does not appear to be in any discomfort at this time. Reddened area noted to foot where a PIV was dicontinued and redness surrounding PEG site which pt pulled out during the NOC. Tele in place, SR/ST, SBP 140's, trace general edema. L/S coarse in upper lobes at beginning of shift though clear otherwise, harsh/moist cough producing copious amts of thick/yellow sputum, unable to clear secretions independently and requires suctioning, nasal trumpet present on initial assessment, O2 sat stable on 3L NC placed in mouth, continuous bedside O2 monitoring. Abd SNT, BT+, PEG tube present and flushes w/o difficulty. PIV x2, NS TKO w/abx. No s/s of acute distress at this time. PMD at bedside, new d/o received. Breathing tx administered by RT and nasal trumpet removed, pt tolerated well. Facility caregiver has remained at bedside t/o the shift assisting w/care and ADL's. Call light in reach of staff member, eliud to monitor for changes.
--- NOTE | 2018-03-09 15:38 | NUR ---
Ying Thorne. received permission to participate in care on 03/10/18.
--- NOTE | 2018-03-09 17:43 | NUR ---
NURSING PCU DAYSHIFT SUMMARY: No significant changes noted t/o the shift. VS have remained stable, cardiac and respiratory status unchanged. Caregivers have remained at bedside to assist w/care and pt's ADL's. Frequent suctioning required t/o the shift for pt's moist cough. RT at bedside for breathing tx's though determined CPT was not necessary this shift as pt does not have coarse L/S. No s/s of acute distress. PCT attempted to reposition pt at 1600 though caregiver in room refused the repositioning of pt stating that the pt was resting comfortably. PIV in RUE infiltrated, PG placed by CN, pt tolerated well. Call light remains in reach of caregiver, cont to monitor until rpt is given to NOC RN.
[2018-03-10 04:07] LABS: BASOPHILS ABSOLUTE AUTO 0.04 K/mm3 (0.00-0.23); BASOPHILS PERCENT AUTO 1 % (0-2); EOSINOPHILS ABSOLUTE AUTO 0.12 K/mm3 (0.00-0.68); EOSINOPHILS PERCENT AUTO 2 % (0-6); Hematocrit 37.9 % (37.0-53.0); Hemoglobin 12.4 g/dL (13.5-17.5); IMMATURE GRAN ABSOLUTE AUTO 0.01 K/mm3 (0.00-0.10); IMMATURE GRAN PERCENT AUTO 0 % (0-1); LYMPHOCYTES ABSOLUTE AUTO 0.68 K/mm3 (0.84-5.20); LYMPHOCYTES PERCENT AUTO 13 % (21-46); MONOCYTES ABSOLUTE AUTO 1.07 K/mm3 (0.16-1.47); MONOCYTES PERCENT AUTO 21 % (4-13); Mean Corpuscular HGB 36.4 pg (26.0-34.0); Mean Corpuscular HGB Conc 32.7 g/dL (31.5-36.5); Mean Corpuscular Volume 111 fL (80-100); Mean Platelet Volume 9.2 fL (9.1-12.4); NEUTROPHILS ABSOLUTE AUTO 3.17 K/mm3 (1.96-9.15); NEUTROPHILS PERCENT AUTO 62 % (41-73); Platelet Count 353 K/mm3 (150-400); RDW Coefficient Variation 12.5 % (11.7-14.2); RDW Standard Deviation 51.4 fL (35.1-46.3); Red Blood Cell Count 3.41 M/mm3 (4.30-5.90); White Blood Cell Count 5.09 K/mm3 (4.00-11.30)
[2018-03-10 04:31] LABS: Anion Gap 7 mmol/L (6-16); Blood Urea Nitrogen 8 mg/dL (8-24); Bun/Creatinine Ratio 16.8 (12.0-20.0); CO2, Blood 33 mmol/L (21-32); Chloride, Blood 93 mmol/L (98-108); Creatinine, Blood 0.48 mg/dL (0.60-1.20); Glomerular Filtration Rate >60 (60-); Glucose, Blood 96 mg/dL (70-99); Potassium, Blood 3.4 mmol/L (3.5-5.5); Sodium, Blood 133 mmol/L (136-145)
--- NOTE | 2018-03-10 07:30 | NUR ---
SHIFT SUMMARY PATIENT CONTINUES TO BE NON-VERBAL THROUGHOUT THE NIGHT. PATIENT TURNED Q2H BUT WOULD SOMETIMES MOVE HIMSELF ABOUT IN BED ON HIS OWN. ORAL CARE PROVIDED. FEEDING'S AND FLUSH PER ORDERS. PATIENT CONTINUES TO BE FIDGITY WITH LINES AND PEG TUBE, HOWEVER PATIENT DID APPEAR TO SLEEP WELL THROUGHOUT A SIGNIFICANT PORTION OF THE NIGHT. CAREGIVER AT BEDSIDE THROUGHOUT THE NIGHT AND HELPED TO PROVIDED SOME PATIENT CARE. PATIENT SUCTIONED PRN. REPORT GIVEN TO ONCOMING RN.
--- NOTE | 2018-03-10 10:08 | NUR ---
Assumed care of pt at approx 0700. Non-verbal, responds to verbal stimuli, gross movement of UE's though no fine motor skills. Does not appear to be in any discomfort at this time. Reddened areas noted from previous IV sites and self scratching, skin is otherwise intact w/no breakdown or pressure sores noted. Tele in place, NSR, SBP 150's, trace general edema. L/S coarse in upper lobes at beginning of shift though improved after CPT, harsh/moist cough producing moderate amts of thick/yellow sputum, unable to clear secretions independently and requires suctioning, O2 sat stable on 3L NC placed in mouth, continuous bedside O2 monitoring. Abd SNT, BT+, PEG tube present and flushes w/o difficulty, small amt of bleeding noted around the site r/t to the tube recently being pulled out by pt during hospitalization. PIV x2, s/l w/abx. No s/s of acute distress at this time. Awaiting rounding from PMD. Breathing tx administered by RT, pt tolerated well. Facility caregiver has remained at bedside t/o the shift assisting w/care and ADL's. Call light in reach of staff member, cont to monitor for changes.
--- NOTE | 2018-03-10 17:51 | NUR ---
NURSING PCU DAYSHIFT SUMMARY: No significant changes noted t/o the shift. VS have remained stable, respiratory and cardiac status unchanged. Facility caregiver has remained at bedside t/o the day assisting w/personal care and ADL's. Frequent suctioning remains required w/moderate amts of thick/yellow sputum being produced. Pt continues to tolerate TF as per schedule from dietary. PEG site remains irritated and continues to produce a small amt of blood surrounding the insertion area, will continue to monitor. No s/s of acute distress, cont to monitor until rpt is given to NOC RN.
[2018-03-11 03:37] LABS: Hematocrit 36.7 % (37.0-53.0); Hemoglobin 12.2 g/dL (13.5-17.5); Mean Corpuscular HGB 36.4 pg (26.0-34.0); Mean Corpuscular HGB Conc 33.2 g/dL (31.5-36.5); Mean Corpuscular Volume 110 fL (80-100); Mean Platelet Volume 8.8 fL (9.1-12.4); Platelet Count 362 K/mm3 (150-400); RDW Coefficient Variation 12.2 % (11.7-14.2); RDW Standard Deviation 49.1 fL (35.1-46.3); Red Blood Cell Count 3.35 M/mm3 (4.30-5.90); White Blood Cell Count 4.44 K/mm3 (4.00-11.30)
[2018-03-11 04:00] LABS: Anion Gap 7 mmol/L (6-16); Blood Urea Nitrogen 6 mg/dL (8-24); Bun/Creatinine Ratio 14.7 (12.0-20.0); CO2, Blood 37 mmol/L (21-32); Calcium, Blood 7.7 mg/dL (8.5-10.1); Chloride, Blood 91 mmol/L (98-108); Creatinine, Blood 0.41 mg/dL (0.60-1.20); Glomerular Filtration Rate >60 (60-); Glucose, Blood 88 mg/dL (70-99); Potassium, Blood 3.7 mmol/L (3.5-5.5); Sodium, Blood 135 mmol/L (136-145)
--- NOTE | 2018-03-11 06:39 | NUR ---
SHIFT SUMMARY PATIENT APPEARED TO SLEEP WELL THROUGHOUT THE NIGHT, PATIENT WAS MUCH LESS FIDGITY AND RESTLESS TONIGHT THAN LAST NIGHT. PATIENT TURNED Q2H. ORAL CARE PROVIDED. FEEDINGS AND FLUSHES GIVEN PERORDERS. CAREGIVERS PRESENT AT BEDSIDE THROUGHOUT THE NIGHT AND HELPED TO PROVIDE SOME CARE. WILL CONTINUE TO MONITOR PATIENT AND REPORT TO ONCOMING RN.
--- NOTE | 2018-03-11 11:06 | NUR ---
Assumed Care Assumed care of pt at approx 0700. VSS. In no apparent sign of distress. Pt is A&Ox1. Non-verbal. Unable to reposition self. 24hr caregiver at bedside. Residual checked prior to starting bolus feed per orders with minimal residual noted. Lungs coarse and crackles. See shift assessment for detailed assessment. Pt does not have any apparent unmet needs at this time. Will continue to monitor.
--- NOTE | 2018-03-11 17:56 | NUR ---
Shift Summary No acute changes since initial shift assessment. Pt has required suction approx every 1-2hrs this shift. VSS. In no apparent sign of distress. Pt does not have any apparent unmet needs at this time. Pt has been repositioned every two hours. Pt has received his tube feedings and flushes per orders. Pt has been titrated down on her O2 from 4L to 3L and is tolerating well. Received order for transfer to medical floor and will call report to [facility] shift RN on medical floor for transfer. Pt currently resting in bed with call light within reach. Denies any further questions, complaints or requests at this time. Will continue to monitor until report is given to noc shift RN.
--- NOTE | 2018-03-12 06:32 | NUR ---
SHIFT SUMMARY PT WAS A NEW TRANSFER FROM PCU DURING THE NIGHT. HE IS NONVERBAL, WITH A HX OF CEREBRAL PALSY. HE IS BEDBOUND AT BASELINE. THE PT HAS 24 HOUR CAREGIVERS IN THE ROOM FROM [facility] FROM THE HANDICAPPED. THE PT TENDS TO PULL AT LINES, AND PULLED AT HIS OXYGEN TUBING. PT IS CURRENTLY ON 3L OF O2 VIA NC. HE DID NOT SHOW ANY S/S OF PAIN OR ACUTE SHORTNESS OF BREATH. VITAL SIGNS STABLE. NO ACUTE CHANGES IN PT CONDITION NOTED. WILL CONTINUE TO MONITOR AND TREAT PER EMAR UNTIL HAND OFF TO DAY SHIFT.
--- NOTE | 2018-03-12 18:24 | NUR ---
shift summary pt moving self about in bed this morning. caregiver reports pt doesn't like head elevated. feedings given today without problem. turned and changed when not moving himself in bed. no fever. opens eyes to name and conversation. sleeping most of afternoon.
--- NOTE | 2018-03-13 04:16 | NUR ---
SHIFT SUMMARY PT IS A 73 Y/O MALE, ADMITTED FOR ACUTE RESPIRATORY FAILURE. HIS O2 SATS HAVE BEEN STABLE AT 94% AT ROOM AIR. ALL OTHER VITALS STABLE. HE IS NONVERBAL, WITH A HX OF CEREBRAL PALSY, BUT ABLE TO TURN HIMSELF OVER ON THE BED. HE APPEARS COMFORTABLE, WITH NO S/S OF PAIN OR SOB. NO ACUTE CHANGES IN PT CONDITION NOTED. PT HAS CONTINUOUS CAREGIVER AT BEDSIDE. REPORT GIVEN TO LIANET COLBY.
--- NOTE | 2018-03-13 04:34 | NUR ---
ASSUMING CARE OF PT. I AGREE WITH PRIOR RN'S ASSESSMENTS AND NOTES.
--- NOTE | 2018-03-13 07:11 | NUR ---
SHIFT SUMMARY: NO ACUTE CHANGES SINCE ASSUMING CARE OF PT. MEDS ADMINSITERED THIS AM IN APPLE JUICE.
--- NOTE | 2018-03-13 18:25 | NUR ---
SHIFT SUMMARY OXYGEN SATURATION THIS MORNING 88% ON RA. OXYGEN REATTACHED TO PT BUT HE HAS CONSISTANTLY REMOVED TODAY. TOLERATED FEEDINGS AND FLUID BOLUSES WITH NO RESIDUALS. OCC LOOSE COUGG THAT HE CLEARS HIMSELF OR ASSIST WITH SUCTIONING. MOVED SELF ABOUT IN BED WELL. LIKES TO LAY HEAD AT FOOT OF BED AND VICA VERSA ESPECIALLY IF HOB IS ELEVATED.
--- NOTE | 2018-03-14 06:31 | NUR ---
SHIFT SUMMARY PT IS A 73 Y/O M, WITH HX OF CEREBRAL PALSY AND DEVELOPMENTAL DELAY. HE IS NONVERBAL AND WHEELCHAIR BOUND AT BASELINE WITH BILATERAL ARM AND LEG CONTRACTURES. HE HAS A PEG TUBE, THROUGH WHICH HE GETS BOLUS FEEDINGS X 4. HE APPEARED COMFORTABLE, WITH NO S/S OF PAIN OR SOB. VITAL SIGNS REMAINED STABLE. NO OTHER ACUTE CHANGES IN PT CONDITION NOTED. WILL CONTINUE TO MONITOR AND TREAT PER EMAR UNTIL HAND OFF TO DAY SHIFT.
[2018-03-14] MEDS ORDERED: SACC250C PT (11:51)
[2018-03-14] MEDS ORDERED: LEVFLO500 PO (11:51)
[2018-03-14] MEDS ORDERED: TAMS.4ER PO (11:51)
--- NOTE | 2018-03-14 13:20 | NUR ---
DISCHARGE PT DISCHARGED HOME AT APPROXIMATELY 1315. DISCHARGE INSTRUCTIONS PROVIDED TO PATIENT'S CAREGIVERS. QUESTIONS WERE ANSWERED. PT ESCORTED OUT BY CAREGIVERS IN HIS W/C.
== END 2018-03-14 13:17 | disposition home or self-care (01) | DRG 177 ==
LOC: ER 22:42 → ICUW 03-07 00:54 → ICUE 03-07 00:54 → PCU 03-08 22:05 → MEDS 03-11 19:20
PROVIDERS: Emergency Medicine; Hospitalist; Internal Medicine; ADMIT Internal Medicine
PROC: 5A09457 Assistance with Respiratory Ventilation, 24-96 Consecutive Hours, Continuous Positive Airway Pressure (ICD-10-PCS; principal; 2018-03-07)
DX: J69.0 Pneumonitis due to inhalation of food and vomit (principal); J96.01 Acute respiratory failure with hypoxia; R53.2 Functional quadriplegia; E87.1 Hypo-osmolality and hyponatremia; J98.11 Atelectasis; Z93.1 Gastrostomy status; G80.9 Cerebral palsy, unspecified; I10 Essential (primary) hypertension; F79 Unspecified intellectual disabilities; E87.6 Hypokalemia; Z79.899 Other long term (current) drug therapy; Z99.3 Dependence on wheelchair; Z87.01 Personal history of pneumonia (recurrent)
CPT/HCPCS: 31720; 36415; 36600; 51701; 51702; 71045; 80048; 80053; 80202; 81001; 82803; 83605; 83735; 83880; 84100; 84145; 85025; 85027; 87040; 87070; 87077; 87086; 87102; 87147; 87186; 87205; 87486; 87493; 87581; 87633; 87798; 93005; 93010; 94640; 94660; 94667; 94668; 94760; 94762; 96361; 96374; 96375; 99285-25; J1650; J1956; J2543; J3370; J7030

== ENCOUNTER 2018-04-17 02:12 | Inpatient (IN) | payer OTHER ==
[~2018-04-17] VITALS: Ht 167.6 cm; Wt 59.9 kg
[~2018-04-17 02:12] MED LIST changes: +DIAPER RASH OIN56 GM TOP; -MUPI2TC TOP; +MUPIROCIN15 GM TOP; +Periogard473 ML MM; -Periogard473 ML TOP; +SACC250C PT; +TAMS.4ER PO; +VICKS VAPORUB O50 GM TOP
[2018-04-17 03:41] LABS: BASOPHILS ABSOLUTE AUTO 0.05 K/mm3 (0.00-0.23); BASOPHILS PERCENT AUTO 0 % (0-2); EOSINOPHILS PERCENT AUTO 0 % (0-6); Hematocrit 37.4 % (37.0-53.0); Hemoglobin 12.5 g/dL (13.5-17.5); IMMATURE GRAN ABSOLUTE AUTO 0.06 K/mm3 (0.00-0.10); IMMATURE GRAN PERCENT AUTO 0 % (0-1); LYMPHOCYTES ABSOLUTE AUTO 0.77 K/mm3 (0.84-5.20); LYMPHOCYTES PERCENT AUTO 4 % (21-46); MONOCYTES ABSOLUTE AUTO 1.82 K/mm3 (0.16-1.47); MONOCYTES PERCENT AUTO 11 % (4-13); Mean Corpuscular HGB 36.1 pg (26.0-34.0); Mean Corpuscular HGB Conc 33.4 g/dL (31.5-36.5); Mean Corpuscular Volume 108 fL (80-100); Mean Platelet Volume 8.9 fL (9.1-12.4); NEUTROPHILS PERCENT AUTO 85 % (41-73); Platelet Count 341 K/mm3 (150-400); RDW Coefficient Variation 13.3 % (11.7-14.2); RDW Standard Deviation 53.3 fL (35.1-46.3); Red Blood Cell Count 3.46 M/mm3 (4.30-5.90)
[2018-04-17 03:59] LABS: Alanine Aminotransfer (ALT/SGP 48 U/L (12-78); Albumin, Blood 2.9 g/dL (3.4-5.0); Albumin/Globulin Ratio 0.6 (0.8-1.8); Alk Phos 141 U/L (50-136); Anion Gap 5 mmol/L (6-16); Aspartate Aminotrans (AST/SGOT 21 U/L (12-37); Bilirubin, Total 0.4 mg/dL (0.1-1.0); Blood Urea Nitrogen 15 mg/dL (8-24); Bun/Creatinine Ratio 35.6 (12.0-20.0); CO2, Blood 32 mmol/L (21-32); Calcium, Blood 8.4 mg/dL (8.5-10.1); Chloride, Blood 86 mmol/L (98-108); Creatinine, Blood 0.42 mg/dL (0.60-1.20); Globulin, Blood 5.1 g/dL (2.2-4.0); Glomerular Filtration Rate >60 (60-); Glucose, Blood 113 mg/dL (70-99); Potassium, Blood 5.5 mmol/L (3.5-5.5); Sodium, Blood 123 mmol/L (136-145)
[2018-04-17 04:10] LABS: PCO2 Arterial 62.1 mmHg (35-45); PO2 Arterial 70.5 mmHg (80-100); pH Blood Arterial 7.37 (7.35-7.45)
[2018-04-17 04:14] LABS: Magnesium, Blood 2.3 mg/dL (1.6-2.4); Troponin I <0.015 ng/mL (0.000-0.040)
[2018-04-17 05:17] LABS: Influenza A Negative (NEGATIVE); Influenza B Negative (NEGATIVE)
--- NOTE | 2018-04-17 06:53 | NUR ---
0625: ADM FROM E.D. 73YO MALE, VSS. MOIST, PRODUCTIVE COUGH, CONGESTED SOUNDING COUGH, NO SPUTUM ORAL PHARYNX. R.T. CALLED TO NT SUCTION, PT APPEARS TO HAVE SWALLOWED PHLEGM. OPENS EYES WHEN SHAKEN, NON VERBAL.
--- NOTE | 2018-04-17 07:16 | NUR ---
ASSUMED CARE REPORT FROM GREGORIO RN INSERTED NASAL TRUMPET AND PERFORMED NT SX WITH ASSISTANCE OF RT HAYDEE. BRIGHT RED BLOOD WITH SOME THICK YELLOW. NC TO 6L. SPECIMEN OBTAINED. BIOX 94%
--- NOTE | 2018-04-17 08:03 | NUR ---
CAREGIVER, IN. LIOR RODGERS IS NEW RESIDENT AT [facility] REPORTS PATIENT NEEDS TO BE SX'D SOON HE COUGHS BECAUSE HE SWALLOWS AND ASPIRATES. [facility] IS NOT FAMILIAR WITH PATIENT'S HISTORY HE IS A NEW RESIDENT
--- NOTE | 2018-04-17 10:29 | NUR ---
MD VISIT DR. LUIS IN. NO NEW ORDERS
--- NOTE | 2018-04-17 11:04 | NUR ---
UNABLE TO GIVE MEDS PT BECAUSE WE DON'T HAVE THE PROPER SYRINGES. STAFF WILL BRING IN A SYRINGE
--- NOTE | 2018-04-17 16:42 | NUR ---
CALLED DR. LUIS TO HAVE FLUIDS SLOWED PATIENT IS ON LASIX AT HOME.
[2018-04-17] MEDS ORDERED: MIRALAX17 GM PT (17:12)
--- NOTE | 2018-04-17 18:01 | NUR ---
UPDATE GIVEN TO NURSE AT PATIENT'S HOME. THEY WON'T BE SENDING STAFF OVER DURING THE NIGHT BECAUSE OF THE SNOW ON THE GROUND.
--- NOTE | 2018-04-17 18:59 | NUR ---
PATIENT SLEPT UNTIL 1800. COUGH WITH SX IS LESS FREQUENT. BED CPT X2. LEGS CURLED UNDER HIM NOW HE LIKES IT. NC AT 4L. REPORT TO LIANET ANTONIO.
--- NOTE | 2018-04-17 19:38 | NUR ---
CARE ASSUMED REPORT RECEIVED, CARE ASSUMED FROM LIANET GRIMES. UPON ENTERING ROOM, PT CURLED UP IN -LIKE POSITION ON LEFT SIDE WITH EYES OPEN. PT NONVERBAL PER PT'S BASELINE. VITALS STABLE. SEE ASSESSMENT/FLOWSHEETS.
[2018-04-18 04:21] LABS: Hematocrit 35.2 % (37.0-53.0); Hemoglobin 11.1 g/dL (13.5-17.5); Mean Corpuscular HGB 35.2 pg (26.0-34.0); Mean Corpuscular HGB Conc 31.5 g/dL (31.5-36.5); Mean Platelet Volume 9.3 fL (9.1-12.4); Platelet Count 305 K/mm3 (150-400); RDW Coefficient Variation 13.3 % (11.7-14.2); RDW Standard Deviation 54.9 fL (35.1-46.3); Red Blood Cell Count 3.15 M/mm3 (4.30-5.90); White Blood Cell Count 5.54 K/mm3 (4.00-11.30)
[2018-04-18 04:24] LABS: Mean Corpuscular Volume 112 fL (80-100)
[2018-04-18 04:44] LABS: Anion Gap 4 mmol/L (6-16); CO2, Blood 34 mmol/L (21-32); Chloride, Blood 92 mmol/L (98-108); Glucose, Blood 69 mg/dL (70-99); Potassium, Blood 4.5 mmol/L (3.5-5.5); Sodium, Blood 130 mmol/L (136-145)
[2018-04-18 04:45] LABS: Alanine Aminotransfer (ALT/SGP 40 U/L (12-78); Albumin, Blood 2.3 g/dL (3.4-5.0); Albumin/Globulin Ratio 0.5 (0.8-1.8); Alk Phos 97 U/L (50-136); Aspartate Aminotrans (AST/SGOT 22 U/L (12-37); Bilirubin, Total 0.5 mg/dL (0.1-1.0); Blood Urea Nitrogen 11 mg/dL (8-24); Bun/Creatinine Ratio 22.9 (12.0-20.0); Calcium, Blood 8.3 mg/dL (8.5-10.1); Creatinine, Blood 0.48 mg/dL (0.60-1.20); Globulin, Blood 4.7 g/dL (2.2-4.0); Glomerular Filtration Rate >60 (60-)
--- NOTE | 2018-04-18 06:45 | NUR ---
SUMMARY THROUGHOUT NIGHT, PT INCREASINGLY ALERT AND RESPONSIVE. CONTINUES TO BE NONVERBAL PER BASELINE BUT WITHDRAWS TO ORAL CARE AND REACHES FOR LINES. VITALS STABLE. PT HAS REQUIRED INCREASED O2 DUE TO DESATURATIONS. FREQUENT ORAL SUCTIONING REQUIRED THROUGHOUT NIGHT FOR THICK, WHITE/YELLOW SECRETIONS. SEE FLOWSHEETS/ASSESSMENTS.
--- NOTE | 2018-04-18 11:37 | NUR ---
0730-ASSUMED CARE OF PT. PT OPENS EYES TO VOICE ONCE IN A WHILE NOT FOLLOWING COMMANDS. PT HAS OCCASSIONAL PRODUCTIVE COUGH WHICH HE IS NOT ABLE TO EXPECTORATE. SUCTIONED SECRETIONS PRN. 1030-SEEN BY DR. LUIS. NEW ORDERS PLACED.
--- NOTE | 2018-04-18 17:32 | NUR ---
SHIFT ASSESSMENT: PT IS ON CONTINUES TUBE FEEDING NOW WITH JEVITY 1.2 @ 25ML/HR. AFEBRILE. OCCASSIONAL PRODUCTIVE COUGH WHICH PATIENT IS UNABLE EXPECTORATE. SUCTIONED SECRETIONS PRN.
--- NOTE | 2018-04-18 19:00 | NUR ---
[place] of Care: Patient appears drowsy, but open eyes spontaneously, responds to verbal stimuli. Does not follow commands and non-verbal at baseline. No s/s of pain or discomfort. No s/s of dyspnea/SOB, O2-96% on 3-4L/NC. Occasional congested cough, requires deep oral suction to remove secretions, thick creamy/white in color. Incontinent of bowel and urine at baseline, attends in place and clean/dry at this time. Power-glide to PITER patent and intact, infusing Abx and TKO without difficulty. G-tube infusing Jevity 1.2 at 25ml/hr, 30ml H2O flush q4. Will increase to goal of 45ml/hr at approx 2200hr if residuals remain wnl. Will continue to monitor for pain, comfort, safety.
--- NOTE | 2018-04-18 22:09 | NUR ---
Tube Feed: Continuos tube feed per G-tube increased from 25ml/hr to goal rate of 45ml/hr at this time. Residual 5ml at 2130hr, no s/s of GI intolerance.
[2018-04-19 04:27] LABS: Hematocrit 34.6 % (37.0-53.0); Hemoglobin 10.9 g/dL (13.5-17.5); Mean Corpuscular HGB 35.4 pg (26.0-34.0); Mean Corpuscular HGB Conc 31.5 g/dL (31.5-36.5); Mean Corpuscular Volume 112 fL (80-100); Platelet Count 323 K/mm3 (150-400); RDW Coefficient Variation 13.2 % (11.7-14.2); RDW Standard Deviation 54.8 fL (35.1-46.3); Red Blood Cell Count 3.08 M/mm3 (4.30-5.90); White Blood Cell Count 6.87 K/mm3 (4.00-11.30)
[2018-04-19 04:52] LABS: Anion Gap 3 mmol/L (6-16); Blood Urea Nitrogen 9 mg/dL (8-24); Bun/Creatinine Ratio 19.6 (12.0-20.0); CO2, Blood 38 mmol/L (21-32); Chloride, Blood 94 mmol/L (98-108); Creatinine, Blood 0.46 mg/dL (0.60-1.20); Glomerular Filtration Rate >60 (60-); Glucose, Blood 121 mg/dL (70-99); Potassium, Blood 4.4 mmol/L (3.5-5.5); Sodium, Blood 135 mmol/L (136-145)
[2018-04-19 04:55] LABS: Albumin, Blood 2.3 g/dL (3.4-5.0); Magnesium, Blood 2.3 mg/dL (1.6-2.4); Phosphorus, Blood 3.3 mg/dL (2.5-4.9)
--- NOTE | 2018-04-19 06:24 | NUR ---
Shift Summary: No acute changes throughout shift, slept well. VSS, O2-96-98% on 4-6L/NC. Large to copious amounts of thick creamy/white secretions produced, removed with deep oral suctioning, timed with coughing. Powere-glide to PITER arm remains patent and intact. Tube-feed increased to continuous goal rate of 45m/hr, tolerated well, no s/s of GI intolerance. Will continue to monitor until report to day shift RN.
--- NOTE | 2018-04-19 09:19 | NUR ---
PT AWAKE IN BED, OPENS EYES TO LIGHT TOUCH AND VOICE. PT SITTING IN HIGH FOWLERS WITH LEGS CROSSED, SUPPORTED BY PILLOWS. PT NON VERBAL, APPEARS COMFORTABLE. AFEBRILE. PT COUGHS ON SPUTUM, UNABLE TO CLEAR AIRWAY, REQUIRES FREQUENT SUCTIONING. DR LUIS IN TO SEE PT THIS AM.
--- NOTE | 2018-04-19 10:39 | NUR ---
PT FOUND TO HAVE SATS AT 74%. RT CALLED. AGRESSIVE SUCTIONING PERFORMED. NASAL TRUMPET 30 PLACED TO R NARE TO DECREASE NARE TRAUMA. PT SUCTIONED AGRESSIVELY FOR 10-15MIN BY RT. DR BARRERA CALLED, NEW CONSULT FOR ARTHUR. PT RESTRAINED TO KEEP TRUMPET IN. DR GIBSON CALLED AND GIVEN UPDATE.
--- NOTE | 2018-04-19 11:21 | NUR ---
DR GIBSON NOTIFIED OF PT'S ZAINAB RESULTS
--- NOTE | 2018-04-19 12:40 | NUR ---
DR GIBSON IN TO SEE PT. NEW ANTIBIOTICS TO BE ORDERED TO COVER ZAINAB IN SPUTUM. PT CONT TO REQUIRE AGRESSIVE SUCTIONING.
--- NOTE | 2018-04-19 16:11 | NUR ---
PT'S SATS DROPPED TO 82%, PT'S FACE PURPLE, WITH EXCESSIVE SECRETIONS. PT NT SUCTIONED VIA NASAL AIRWAY, LARGE AMT SX'D. O2 INCREASED TO 6L VIA HIGH FLOW; IN MOUTH. SATS CAME UP >90% AFTER 5MIN. RT NOTIFIED. SATS 94% NOW. PT SLEEPING
--- NOTE | 2018-04-19 18:36 | NUR ---
PT WOKE UP ONCE AND WAS ALERT FOR ABOUT 5MIN BEFORE FALLING BACK TO SLEEP. PT SAT STRAIGHT UP IN BED WITH LEGS ARTIS CROSS AND TUCKED UNDER HIM. VSS. O2 REMAINS AT 6L VIA HIGH FLOW PLACED IN MOUTH. PT DOES OPEN EYES FROM TIME TO TIME DURING SHIFT.
--- NOTE | 2018-04-19 19:00 | NUR ---
ASSUMED CARE ASSUMED CARE OF PATIENT. ROUSES TO VERBAL STIMULI. OPENS EYES AND OPENS MOUTH TO VERBAL DIRECTION. DOESN'T FOLLOW ANY OTHER COMMANDS AT THIS TIME. GROSS MOTOR MOVEMENT NOTED IN ALL EXTREMITIES. CONTRACTURES NOTED IN ALL EXTREMITIES. INCONTINENT OF URINE- ATTENDS IN PLACE. PEG TUBE WITH JEVITY 1.2 INFUSING @ GOAL RATE OF 45CC/HR. NASAL TRUMPET IN PLACE. BILATERAL SOFT WRIST RESTRAINTS IN PLACE D/T PT PULLING OFF O2 AND AT NASAL TRUMPET. SEE SHIFT ASSESSMENT FOR FULL ASSESSMENT.
--- NOTE | 2018-04-20 00:15 | NUR ---
NT SUCTIONING NT SUCTIONING DONE AT THIS TIME- MODERATE AMOUNT OF THICK WHITE SOUTUM SUCTIONED. NASAL TRUMPET REMAINS IN PLACE. ORAL SUCTION WITH MODERATE THICK CLEAR SECRETIONS.
--- NOTE | 2018-04-20 04:50 | NUR ---
NT SUCTION NT/ORAL SUCTIONING DONE AT THIS TIME- MODERATE AMOUNTS OF THICK WHITE SPUTUM AND THICK CLEAR ORAL SECRETIONS. 02 SATS DECREASED TO 84-86%- O2 INCREASED TO 9L HFNC.
[2018-04-20 05:23] LABS: Magnesium, Blood 2.3 mg/dL (1.6-2.4); Phosphorus, Blood 2.7 mg/dL (2.5-4.9)
--- NOTE | 2018-04-20 06:16 | NUR ---
SHIFT SUMMARY PT SLEPT INTERMITTENTLY. NO NEURO CHANGES NOTED. REMAINS ON HIGH FLOW NC BETWEEN 4-9L- NOW AT 9L. RESPIRATIONS EVEN AND UNLABORED. NT SUCTIONED X 2 DURING NOC- THICK WHITE SPUTUM. NASAL TRUMPET REMAINS IN PLACE. INCONTINENT OF URINE. INCONTINENT OF LOOSE STOOL X 1. PEG WITH JEVITY 1.2 INFUSING @ GOAL RATE OF 45CC/HR. 30CC H20 Q4H. BILATERAL SOFT WRIST RESTRAINTS RENAIN IN PLACE D/T PULLING AT O2 AND NASAL TRUMPET. WILL REPORT TO DAY SHIFT RN WHEN AVAILABLE.
--- NOTE | 2018-04-20 09:20 | NUR ---
0800... PT IS NON-VERBAL. REMAINS NO HFNC AT 9L. VS NOTED. ATTNEDS IS DRY. SATS NOTED AND ADIQUATE. DEEP ORAL-PHAR. SX DONE WITH YELLOW SECRAETIONS. TF IS INFUSING A GOAL RATE OF 45 W/O RESUDUAL.
--- NOTE | 2018-04-20 18:40 | NUR ---
PT HAS COPIOUSL SECREATIONS MOST OF THIS DAY AND HAS REQUIRED ORAL SX. SEC. ARE YELLOW AND GENERALLY THIN. PT HAS HAD SEVERAL FULL ATTENDS VOIDS AND STOOLING TIMES 2. PT TF REMAINS JEVITY AT 45 ML, TOLERATING WELL RE RESIDUAL. HAVE BEEN ABLE TO DECREASE O2 TO 4L AND PT TOLERATING WELL AT 95+%.
--- NOTE | 2018-04-20 19:20 | NUR ---
ASSUME CARE : REPORT RECIEVED FROM NOLBERTO MARTINI. MONITOR INTACT SHOWINF SINUS RHYTHM. HEART RATE 60'S-80'S. PT IS NON VERBAL AND CONTRACTURED. RESTS QUIETLY AROUSES TO VERBAL AND TACTILE STIMULI. REMIANS IN SOFT WRIST RESTRAINTS TO PREVENT REMOVAL OF LINES/TUBES. LUNG SOUNDS COARSE RHONCI. COUPIOUS AMS THIN CLEAR TO YELLOW SECREATION SX PER NASAL TRUMPET AND ORALLY. TUBE FEEDING INFUSING JEVITY 1.2 AT 45ML/HR, WHICH IS GOAL . MINAMAL RESIDUAL REFED. ABDOMEN SOFT WITH BOWEL SOUNDS FOUR QUADS. ATTENDS IN PLACE SECONDARY TO INCONTENCE. CONTINUE TO MONITOR AND REPORT CHANGE IN PATIENT CONDITION.
[2018-04-21 03:50] LABS: BASOPHILS ABSOLUTE AUTO 0.06 K/mm3 (0.00-0.23); BASOPHILS PERCENT AUTO 1 % (0-2); EOSINOPHILS ABSOLUTE AUTO 0.04 K/mm3 (0.00-0.68); EOSINOPHILS PERCENT AUTO 1 % (0-6); Hematocrit 39.6 % (37.0-53.0); Hemoglobin 12.3 g/dL (13.5-17.5); IMMATURE GRAN ABSOLUTE AUTO 0.03 K/mm3 (0.00-0.10); IMMATURE GRAN PERCENT AUTO 0 % (0-1); LYMPHOCYTES ABSOLUTE AUTO 0.87 K/mm3 (0.84-5.20); LYMPHOCYTES PERCENT AUTO 10 % (21-46); MONOCYTES ABSOLUTE AUTO 1.46 K/mm3 (0.16-1.47); MONOCYTES PERCENT AUTO 17 % (4-13); Mean Corpuscular HGB 34.6 pg (26.0-34.0); Mean Corpuscular HGB Conc 31.1 g/dL (31.5-36.5); Mean Corpuscular Volume 112 fL (80-100); Mean Platelet Volume 9.1 fL (9.1-12.4); NEUTROPHILS PERCENT AUTO 71 % (41-73); Platelet Count 266 K/mm3 (150-400); RDW Coefficient Variation 12.9 % (11.7-14.2); RDW Standard Deviation 53.5 fL (35.1-46.3); Red Blood Cell Count 3.55 M/mm3 (4.30-5.90); White Blood Cell Count 8.46 K/mm3 (4.00-11.30)
[2018-04-21 04:11] LABS: Anion Gap 3 mmol/L (6-16); Blood Urea Nitrogen 8 mg/dL (8-24); Bun/Creatinine Ratio 19.7 (12.0-20.0); CO2, Blood 38 mmol/L (21-32); Calcium, Blood 8.7 mg/dL (8.5-10.1); Chloride, Blood 94 mmol/L (98-108); Creatinine, Blood 0.41 mg/dL (0.60-1.20); Glomerular Filtration Rate >60 (60-); Glucose, Blood 119 mg/dL (70-99); Magnesium, Blood 2.3 mg/dL (1.6-2.4); Phosphorus, Blood 2.5 mg/dL (2.5-4.9); Potassium, Blood 3.8 mmol/L (3.5-5.5); Sodium, Blood 135 mmol/L (136-145)
--- NOTE | 2018-04-21 06:20 | NUR ---
SHIFT SUMMARY: RESTS QUIETLY WHEN UNDISTURBED. MONITOR INTACT SHOWING SINUS RHYTHM. HEART RATE 60'S-80'S LUNG SOUNDS COARSE RHONCI MOSIT COUGH COUPIOUS AMT OF THIN SECRETIONS PER NASAL TRUMPET. OCC YELLOW THICK SECRETIONS. PT IS NON VERBAL AND UNABLE TO CLEAR SECRETIONS. CONTRACTURED WITH GROSS MOTOR MOVEMENT. TUBE FEEDING INFUSING PER [place] PUMP TO PEG TUBE JEVITY 1.2 AT 45ML/HR WITH MINIMAL RESIDUALS REFED. ATTENDS IN PLACE SECONDARY TO INCONTINECE. CONTINUE TO MONITOR AND REPORT CHANGE IN PATIENT CONDITION.
--- NOTE | 2018-04-21 07:23 | NUR ---
Received report from Harper MARTINI. Patient LE contracted and moves UE bolaterally minimally. He has NPA in place to left nares and requires frequent suction as well as oral suctioning. His bed and attends saturated in urine and gave patient bath and changed linens. Oral care done after suctioning. He has no verbal communication and track with eye occassionally. He is on Venti mask at 35% and sats low 90%'s. He has peg feeding tube to left abdomen and is infusing jevity 1.2 at goal rate of 45ml/hr and 30ml q4 water flush. He has 20ga PowerGlide to PITER, dressing intact and site WNL's and is flushed , new caps and is SL. He has bilateral UE soft wrist restraints in place for safety of lines and tubes.
--- NOTE | 2018-04-21 09:32 | NUR ---
Patient continues to require q10 min suctioning for copius oral and NT secretions. He contiuely pulls venti mask off even with being restrained as he leans over to his hands and pulls off. VSS, no other significant changes.
--- NOTE | 2018-04-21 11:30 | NUR ---
Patient has had another soaked attends. Continue to oral and NT suction, copius oral and moderate NT secretions. bathed lower half and changed linen and attends. VSS No other changes
--- NOTE | 2018-04-21 13:30 | NUR ---
Third soaked attends today, bathed lower have and changed chucks and attend. VSS. Continued suctioning. Care givers have been by and head nurse. He has been resting off and on.
--- NOTE | 2018-04-21 16:00 | NUR ---
Patient arrived via gurney from logging ra[facility] lab[facility]. Dr Watters at bedside to give report. Left sheath site C/D/I and opsite dressing and pulled in heart center. Right groin site has 6Fr. sheat in place with clear opsite dressing, no oozing or hematoma. Dr Watters stated to start TPA in 2-3 hours as order states in to sheath line and see nurse notifies for exceptions and treatments. She is quiet but alert and oriented, family outside waiting. She is a-fib low 100's and systolic low 100's with MAP >65. Doppler pulses on right foot, sites marked.
--- NOTE | 2018-04-21 17:24 | NUR ---
Changed attends and gave bath to lower half and all linen. TF changed out and zeroed. He sats mid 90%'s all day and desats quickly when not on venti mask. Suctioning continues.
--- NOTE | 2018-04-21 17:45 | NUR ---
Right sheath back flowed with blood and flushed and Altaplase gtt at 0.5mg(10ml/hr) started and will start heparin gtt shortly per order. Patient stable , still doppler pulses. Right and left groinn site C/D/I no bleeding or hematomas.
--- NOTE | 2018-04-22 01:53 | NUR ---
MID SHIFT: PT AWAKENS EASILY TO PERSONS AT BEDSIDE. VSS. PT REQUIRING FREQUENT SUCTIONING AND ATTENDS CHANGE. WHEN BILAT WRIST RESTRAINTS OFF, PT TRIED TO REACH UP A PULL OF EITHER VENTI MASK OR NASAL CANULA. PT REMAINS IN RESTRAINTS FOR THIS REASON. OTHERWISE, PT SEEMINGLY COMFORTABLE AND COOPERATIVE. TF JEVITY 1.2 INFUSING AT 45mL/hr WHICH IS GOAL. CURRENTLY PT APPEARS TO BE SLEEPING. WILL CONTINUE TO MONITOR AND TURN Q2.
--- NOTE | 2018-04-22 06:07 | NUR ---
SHIFT SUMMARY: NO CHANGES T/O NOC. PT TOLERATED HI-FLOW N/C 10L INTO MOUTH OVER THE VENTI-MASK WHICH MAY HAVE BEEN AGGRIVATING THE NASAL TRUMPET. PT WITH FREQUENT SUCTIONING T/O NOC OF WHITE FROTHY SPUTUM OUT, HOWEVER SEEMS TO HAVE DECREASED WITH HI-FLOW N/C BLOWING INTO MOUTH. PT WITH FREQUENT ATTENDS CHANGE WET WITH URINE. PT SKIN CDI. PT'S CARE PROVIDER FROM [facility] CALLED AND WAS UPDATED.
--- NOTE | 2018-04-22 07:45 | NUR ---
ASSUMED CARE OF PT. PT IS ALERT AT THIS TIME. NOT FOLLOWING COMMANDS. SMILING AT TIMES WITH CARE. PT UNABLE TO TELL LOCATION AND RATE OF PT. PT SEEMED TO BE COMFORTABLE AT THIS TIME. TOLERATING TUBE FEEDINGS.
--- NOTE | 2018-04-22 10:46 | NUR ---
PT'S CAREGIVERS AT [facility] CAME BY TO SEE PATIENT.
--- NOTE | 2018-04-22 14:31 | NUR ---
PT HAS PULLED HIS NASAL TRUMPET TWICE AND 02 MANY TIMES DESPITE BEING RESTRAINTS.
--- NOTE | 2018-04-22 19:46 | NUR ---
SHIFT SUMMARY: PT IS AFEBRILE. HAS BEEN PULLING HIS O2 TUABINGS DESPITE RESTRAINTS. MORE AWAKE TODAY. SUCTIONED SECRETIONS PRN. DEEP ORAL SUCTIONING DONE PRN WELL. ON 3LPM NASAL CANNULA.
--- NOTE | 2018-04-23 01:11 | NUR ---
PT SITTING UP IN BED WITH LEGS CROSSED. PT IS NON VERBAL. DOES NOT SEEM DISTRESSED. PT HAS MOIST LOOSE COUGH AND IS ABLE TO CLEAR HIS AIRWAY. MOST OF THE TIME PT SWALLOWS SPUTUM BEFORE IT CAN BE SUCTIONED. RT REPLACED NASAL TRUMPET FOR NT SUCTIONING. PT IS RESTRAINED DUE TO HIM PULLING AT LINES AND CORDS. DUE TO PT SITTING STRAIGHT UP IN BED AND LEGS CROSSED HE CAN STILL REACH FACE AND REMOVE TRUMPET AND NASAL CANULA AT TIMES. HAS SCANT AMT OF BLEEDING FROM R NARES FROM TRUMPET THAT WAS IN EARLIER IN THE DAY.
--- NOTE | 2018-04-23 07:26 | NUR ---
SUMMARY PT CONTINUES TO HAVE STICKY SECRETIONS. COUGH IS MOIST AND LOOSE. ABLE TO CLEAR AIRWAY. PT HOLDS HEAD BACK AND NEEDS TO BE PROPPED UP FREQUENTLY. HIGH ASPIRATION RISK. NO ISSUES WITH DESATTING THOUGH DURING THE NIGHT. HAS NASAL TRUMPET IN AND WAS NT SUCTIONED A COUPLE OF TIMES. PT REMAINS RESTRAINED DUE TO PULLING AT LINES AND CORDS. NO SIGN OF DISTRESS.
--- NOTE | 2018-04-23 07:30 | NUR ---
ASSUMED CARE OF PT. PT IS AWAKE, NON-VERBAL. NOT FOLLOWING COMMANDS. PT LOOKS COMFORTABLE. PT HAS BEEN PULLING HIS O2 DESPITE HIS RESTRAINTS. REMINDED PT NOT TO PULL HIS 02.
--- NOTE | 2018-04-23 10:00 | NUR ---
PT IS SLEEPING AT THIS TIME.
--- NOTE | 2018-04-23 11:38 | NUR ---
DR. LUIS WAS UPDATED OF PT'S STATUS. PT IS CURRENTLY ON 2LPM NC. PT HAS BEEN PULLING HIS O2 DESPITE HIS RESTRAINTS. 02 SATURATION HAS STAYED 90-92% FOR 15 MINS ON ROOM AIR.
--- NOTE | 2018-04-23 17:04 | NUR ---
SHIFT SUMMARY: PT HAS BEEN ON ROOM AIR FOR 5 HOURS WITH 02 SATURATION >90% BUTS WHEN STARTED SLEEPING PT HAS DROPPED HIS 02 SATURATION TO 84%. PT STILL HAS SECRETIONS, STILL THICK BUT SUCTIONING SECRETIONS HAS DECREASED FROM YESTERDAY. AFEBRILE.
--- NOTE | 2018-04-23 18:08 | NUR ---
REPORT GIVEN TO LIANET PAREDES IN PCU. PT WILL BE TRANSFERED TO ROOM PCU 3.
--- NOTE | 2018-04-23 18:35 | NUR ---
PT BROUGHT BY BED TO U 3, REPORT FROM BARRINGTON MARTINI. PT TURNED ON SIDE, PROPPED WITH PILLOWS, PILLOW BETWEEN LEGS, CALL LIGHT IN REACH.
--- NOTE | 2018-04-23 18:56 | NUR ---
PT WAS TRANSFERED TO ROOM PCU 3.
[2018-04-24 06:22] LABS: BASOPHILS ABSOLUTE AUTO 0.08 K/mm3 (0.00-0.23); BASOPHILS PERCENT AUTO 1 % (0-2); EOSINOPHILS ABSOLUTE AUTO 0.08 K/mm3 (0.00-0.68); EOSINOPHILS PERCENT AUTO 1 % (0-6); Hematocrit 40.8 % (37.0-53.0); Hemoglobin 13.2 g/dL (13.5-17.5); IMMATURE GRAN ABSOLUTE AUTO 0.01 K/mm3 (0.00-0.10); IMMATURE GRAN PERCENT AUTO 0 % (0-1); LYMPHOCYTES ABSOLUTE AUTO 1.02 K/mm3 (0.84-5.20); LYMPHOCYTES PERCENT AUTO 16 % (21-46); MONOCYTES PERCENT AUTO 16 % (4-13); Mean Corpuscular HGB 35.1 pg (26.0-34.0); Mean Corpuscular HGB Conc 32.4 g/dL (31.5-36.5); Mean Platelet Volume 9.5 fL (9.1-12.4); NEUTROPHILS ABSOLUTE AUTO 4.25 K/mm3 (1.96-9.15); NEUTROPHILS PERCENT AUTO 66 % (41-73); Platelet Count 271 K/mm3 (150-400); Red Blood Cell Count 3.76 M/mm3 (4.30-5.90); White Blood Cell Count 6.44 K/mm3 (4.00-11.30)
[2018-04-24 06:25] LABS: Mean Corpuscular Volume 109 fL (80-100)
[2018-04-24 06:52] LABS: Anion Gap 5 mmol/L (6-16); Blood Urea Nitrogen 20 mg/dL (8-24); CO2, Blood 32 mmol/L (21-32); Calcium, Blood 8.7 mg/dL (8.5-10.1); Chloride, Blood 104 mmol/L (98-108); Creatinine, Blood 0.39 mg/dL (0.60-1.20); Glomerular Filtration Rate >60 (60-); Glucose, Blood 121 mg/dL (70-99); Sodium, Blood 141 mmol/L (136-145)
--- NOTE | 2018-04-24 08:41 | NUR ---
SHIFT SUMMARY PT WAS ALERT TO SELF AND STAFF T/O SHIFT. HE WAS PLEASANT BUT WAS NOT ABLE TO FOLLOW COMMANDS T/O THE SHIFT. HE IS NON VERBAL AT BASELINE AND NO ACUTE CHANGES WERE OBSERVED TO VITALS OR LOC. PT SLEPT OFF AND ON DURING THE NIGHT. HE WAS ROUNDED ON Q2 HOURS AND TURNED BEST COULD BE. PT HAS TUBE FEEDING GOING AND DID NOT DO ANY PULLING AT TUBES OR LINES DURING THE NIGHT. PT HAS BED IN THE LOWEST POSITION AND 2X SIDE RAILS IN PLACE. PT WILL CONTINUE TO BE MONITORED UNTIL HANDOFF TO DAYSHIFT RN.
--- NOTE | 2018-04-24 19:54 | NUR ---
SHIFT SUMMARY PT RESTING IN BED THROUGHOUT THE DAY. VSS. NON VERBAL, BUT WILL SMILE AT STAFF WHEN INTERACTING WITH THEM. LUNG SOUNDS CLEAR, DIMINISHED BASES. NO SIGNS OF PAIN NOTED AT THIS TIME. PEG TUBE TO LEFT ABDOMEN, PT TOLERATING TUBE FEED WELL. PT CONTINUES TO PULL OXYGEN OFF WHEN IT IS IN PLACE, OXYGEN SATURATION 88-91% ON ROOM AIR, BUT SOME MOMENTS OF APNEA NOTED TODAY AND PT DESATURATES TO LOW 80s. OXYGEN REPLACED AND PT's SATURATIONS INCREASE TO MID 90s.
--- NOTE | 2018-04-25 06:11 | NUR ---
SHIFT SUMMARY PT HAS REMAINED AT BASELINE MENTATION THROUGHOUGHT THE NIGHT, WHICH IS NONVERBAL BUT RESPONSIVE TO STAFF THAT ARE PRESENT AND PROVIDING CARE. VSS. PT HAS BEEN COOPERATIVE WITH CARE. PT CONTINUES TO PULL NASAL CANNULA FROM NOSE WHEN PLACED. O2 SATS HAVE REMAINED 89-94% ON RA WHILE AWAKE, RESPIRATIONS UNLABORED WITH LUNGS SOUNDS UNCHANGED FROM INITIAL ASSESSMENT . PT HAS NOT SLEPT THROUGHOUT THE NIGHT, BUT APPEARS CONTENT AND COMFORTABLE UPON ROUNDING AND ATTEMPTS AND TURNING. CONTINUES TO COUGH OCCASIONALLY WITH SOME MILD SECRETIONS THAT ARE CLEAR, FROTHY AND EASILY SUCTIONED ORALLY. PT HAS NOT REQUIRED NT SUCTIONING THROUGHOUT SHIFT. NO OTHER CHANGES NOTED FROM INITIAL ASSESSMENT. WILL CONTINUE TO MONITOR AND REPORT TO ONCOMING SHIFT RN. BED IN LOW POSITION, CALL LIGHT IN REACH.
--- NOTE | 2018-04-25 08:16 | NUR ---
PT LAYING IN BED IN A SITTING POSITION, EYES OPEN, TRACKING WITH EYE, IS NONVERBAL, HAS SMILED A FEW TIMES, PULLS HIS 02 OFF, BUT SATS ARE 90% ON R/A, RESP EVEN AND UNLABORED, LUNGS ARE CLEAR IN UPPER RAZA, DIM IN BASES, HRR, NO EDEMA NOTED TO B/L LE, PPP+2, CAP REFILL <3SEC, VS STABLE, AFEBRIEL, IV IS POWER GLIDE TO PITER SITE IS CLEAR AND PATENT, BTX4, ABD FLAT SOFT NONTENDER, NO GUARDING NOTED, PEG TUBE IN PLACE, TUBE FEED RUNNING, FLUSHES WELL WITH NO RESIDUAL THIS AM, INCONT OF URINE AND STOOL, ATTENDS IN PLACE IS DRY AT THIS TIME, SKIN C/W/D, EXT ARE CONTRATED, BUT NOT TIGHTLY CAN EXTEND, NADINE, CALL LIGHT IN REACH.
--- NOTE | 2018-04-25 13:30 | NUR ---
pt resting in bed, had a very wet attends this was changed, he was positioned on side, with pillows but he sits himself up with legs crossed, no acute changes this shift. call light in reach, cartoons on tv.
--- NOTE | 2018-04-25 19:03 | NUR ---
pt was found with his iv laying on the bed, and his peg tube is out and laying on the bed, pt sitting up smiles when spoke to, called Dr. Franklin, she came to see him, and will consult surgery in am. iv will be replaced for the last of the abx he needs. call light in reach.
--- NOTE | 2018-04-26 07:24 | NUR ---
SHIFT SUMMARY- PT HAS REMAINED AT BASELINE MENTATION THROUGHOUT THE NIGHT, RESPONDS TO NAME AND VERBAL STIMULI- UNABLE TO FOLLOW DIRECTION AND IS NONVERBAL. PT WILL OCASSIONALLY SMILE AT STAFF WHILE THEY PROIDE CARE. TUBE FEEDING HAS REMAINED ON STANDBY THROUGHOUT THE NIGHT DUE TO PULLING OUT OF PEG TUBE AT SHIFT CHANGE YESTERDAY- DR ZALDIVAR CONSULTED FOR REPLACEMENT. PT REMAINS INCONTINENT OF BOWEL AND BLADDER. ATTEMPTS TO TURN PT Q2 THOUGH HE WILL ALWAYS RETURN TO HIGH LOWE'S POSITION WITH LEGS CROSSED AND ARMS CLOSE TO CHEST- ARMS AND LEGS DO EXTEND WITH STAFF ASSISTANCE. O2 SATS HAVE RANGED FROM 89-92% ON RA WHILE AWAKE- PT CONTINUES TO PULL NASAL CANNULA FROM NOSE WHEN PLACED. NO OTHER CHANGES FROM INITIAL ASSESSMENT, WILL CONTINUE TO MONITOR AND REPORT TO ONCOMING RN. BED IN LOW POSITION, CALL LIGHT IN REACH.
--- NOTE | 2018-04-26 09:45 | NUR ---
INITIAL ASSESSMENT: Pt sitting up in bed. Peg tube was replaced by Dr. Golden this am at bedside. Tube is secure and in place. Flush well with 2mm of green bile residule which was reinstalled. BP elevated. Will treat per orders. Other VSS. LS clear but dim in bases. HR reg but tachy. PUlses palp. Pt. tends to sit with legs crossed and arms drawen into core. Pt is able to extend both upper and lower extrimities on his own. Tube feeding started per orders. Will monitor. Call light in reach.
--- NOTE | 2018-04-26 19:27 | NUR ---
shift summary: Pt resting in bed. Appeared to have a grimmaced face at around 1800, was repositioned at that time and looks a little more comfortable. Tube feeding has been running this shift. Residules checked and no residule this PM. BP has been high at times. Was treated per orders. IV antibiotics were given per orders. NO other changes this shift. Will report to night RN.
--- NOTE | 2018-04-27 05:49 | NUR ---
SHIFT SUMMARY- PT HAS REMAINED AT BASELINE MENTATION THROUGHOUT THE NIGHT. REMAINS NONVERBAL AND UNABLE TO FOLLOW DIRECTION, BUT COOPERATIVE WITH CARE. PT WITH FLACC PAIN SCORE OF 4 UPON START OF SHIFT, MEDICATED WITH TYLENOL, FLACC SCORE DECREASED TO 1 WITH ORDERED MEDICATIONS. VSS. PT CONTINUES TO SMILE AT STAFF WHILE RECEIVING CARE. BOWEL CARE INTIATED LAST NIGHT WITH MILK OF MAGNESIA AND DOCUSATE. NO RESULTS OF YET, WILL CONTINUE WITH BOWEL CARE. TUBE FEEDING INFUSING PER ORDERS THROUGHOUT THE NIGHT. PT HAS BEEN ABLE TO REST THROUGHOUT NIGHT, WAKING EASILY FOR CARE AND VITAL SIGNS. O2 SATS HAVE REMAINED >90% ON RA WHILE AWAKE AND SLEEPING. NO OTHER CHANGES FROM INITIAL ASSESSMENT WILL CONTINUE TO MONITOR AND REPORT TO ONCOMING RN. BED IN LOW POSITION, CALL LIGHT IN REACH. BED ALARM SET FOR SAFETY.
--- NOTE | 2018-04-27 08:45 | NUR ---
Initial assessment: Pt Resting in bed. Appears comfortable. Pt laying on R side. LS clear, diminished in bases. BT positive. TF running per orders. Pulses palp. VSS. Pt non-verbal and unable to follow directions. This is his baseline. Will monitor and repostition throughout the shift.
--- NOTE | 2018-04-27 16:57 | NUR ---
UPDATE: REPORT WAS GIVEN TO MEDICAL FLOOR RNAWAIS. Pt stable at time of transfer.
--- NOTE | 2018-04-27 18:46 | NUR ---
SHIFT SUMMARY PT XFER FROM PCU AT 1700, REC REPORT FROM LIANET OBRIEN. NO ACUTE CHANGES SINCE ASSUMING CARE, HOB AT 45, PT WATCHING TV, WILL CONT TO MONITOR UNTIL REPORT GIVEN TO AIXA MARTINI.
--- NOTE | 2018-04-28 04:17 | NUR ---
SHIFT SUMMARY THE PT BECOMES QUITE AGITATED WITH CARE AND HITS SELF IN FOREHEAD AND SCRATCHES AT SKIN. ATTEMPTED TO REDIRECT. THE PT CONTINUOUSLY REMOVED ABD BINDER AND PULLS AT PEG TUBE SITE. THE PT IS QUITE MOBILE IN BED AND ABLE TO FLIP FROM ONE SIDE TO THE OTHER DESPITE ATTEMPS AT REPOSITIONING PILLOWS. THE PT ALSO DOES NOT APPEAR TO PREFER ORAL CARE BUT PERFORMED FREQUENTLY PTS TONGUE AND MOUTH APPEARED QUITE DRY. CAREGIVER FROM [facility] CAME IN THIS NIGHT TO ASK ABOUT PTS IV ANTIBIOTICS AND ADVISED THAT PER REPORT TO THIS NURSE PT WOULD BE DISCHARGING TODAY. CAREGIVER VERBALIZED UNDERSTANDING. THE PT DID NOT APPEAR TO SLEEP THIS NIGHT FREQUENT ROUNDING TO CHECK ON PT IT WAS NOTED THAT PT WAS AWAKE EACH TIME SO FAR THIS SHIFT. NO APPARENT SIGNS OF ACUTE DISTRESS. FREQUENT VISUAL CHECKS PT IS NOT ABLE TO MAKE NEEDS KNOWN. BED ALARM FOR SAFETY.
--- NOTE | 2018-04-28 14:51 | NUR ---
SHIFT SUMMARY/DC PT HAS HAD NO ACUTE CHANGES THIS SHIFT, NO INDICATIONS OF PAIN OR DISCOMFORT. REPORT CALLED TO LIANET HEBERT @ [facility] @ [phone], PT WAITING FOR TRANSPORT AT THIS TIME.
--- NOTE | 2018-04-28 15:07 | NUR ---
BRY PT TRANSPORTED VIA W/C BY [facility] @ 2001
== END 2018-04-28 15:05 | DRG 871 ==
LOC: ER 02:12 → PCU 05:09 → ICUW 05:09 → PCU 04-23 18:28 → MEDS 04-27 17:28
PROVIDERS: Emergency Medicine; Internal Medicine; Internal Medicine Critical Care Medicine; ADMIT Internal Medicine
PROC: 0D20XUZ Change Feeding Device in Upper Intestinal Tract, External Approach (ICD-10-PCS; principal; 2018-04-26)
DX: A41.52 Sepsis due to Pseudomonas (principal); G82.50 Quadriplegia, unspecified; J96.01 Acute respiratory failure with hypoxia; J15.6 Pneumonia due to other Gram-negative bacteria; Q87.40 Marfan syndrome, unspecified; E87.1 Hypo-osmolality and hyponatremia; K94.23 Gastrostomy malfunction; R65.20 Severe sepsis without septic shock; K21.9 Gastro-esophageal reflux disease without esophagitis; G40.909 Epilepsy, unspecified, not intractable, without status epilepticus; K22.70 Barrett's esophagus without dysplasia; R62.50 Unspecified lack of expected normal physiological development in childhood; I10 Essential (primary) hypertension; E87.6 Hypokalemia
CPT/HCPCS: 31720; 36415; 36600; 71045; 80048; 80053; 80069; 82803; 82947; 83605; 83735; 83880; 84100; 84145; 84484; 85025; 85027; 87040; 87070; 87077; 87186; 87205; 87804; 93005; 93010; 94667; 94668; 94760; 96361; 96365; 99285-25; C1751; J0295; J0360; J0713; J1650; J2185; J2543; J7030; J7050

== ENCOUNTER 2018-05-03 14:35 | Emergency (ER) | payer OTHER ==
[~2018-05-03] VITALS: Ht 160 cm; Wt 59.0 kg
[~2018-05-03 14:35] MED LIST changes: +MIRALAX17 GM PT
[2018-05-03 15:20] LABS: BASOPHILS ABSOLUTE AUTO 0.06 K/mm3 (0.00-0.23); BASOPHILS PERCENT AUTO 1 % (0-2); EOSINOPHILS ABSOLUTE AUTO 0.12 K/mm3 (0.00-0.68); EOSINOPHILS PERCENT AUTO 2 % (0-6); Hematocrit 37.1 % (37.0-53.0); IMMATURE GRAN ABSOLUTE AUTO 0.02 K/mm3 (0.00-0.10); IMMATURE GRAN PERCENT AUTO 0 % (0-1); LYMPHOCYTES PERCENT AUTO 12 % (21-46); MONOCYTES ABSOLUTE AUTO 0.96 K/mm3 (0.16-1.47); MONOCYTES PERCENT AUTO 14 % (4-13); Mean Corpuscular HGB 35.5 pg (26.0-34.0); Mean Corpuscular HGB Conc 32.3 g/dL (31.5-36.5); Mean Corpuscular Volume 110 fL (80-100); Mean Platelet Volume 11.5 fL (9.1-12.4); NEUTROPHILS ABSOLUTE AUTO 4.77 K/mm3 (1.96-9.15); NEUTROPHILS PERCENT AUTO 71 % (41-73); Platelet Count 312 K/mm3 (150-400); RDW Coefficient Variation 13.5 % (11.7-14.2); RDW Standard Deviation 54.6 fL (35.1-46.3); Red Blood Cell Count 3.38 M/mm3 (4.30-5.90); White Blood Cell Count 6.73 K/mm3 (4.00-11.30)
[2018-05-03 15:34] LABS: Alanine Aminotransfer (ALT/SGP 69 U/L (12-78); Albumin, Blood 2.7 g/dL (3.4-5.0); Albumin/Globulin Ratio 0.5 (0.8-1.8); Alk Phos 158 U/L (50-136); Anion Gap 3 mmol/L (6-16); Aspartate Aminotrans (AST/SGOT 43 U/L (12-37); Bilirubin, Total 0.3 mg/dL (0.1-1.0); Blood Urea Nitrogen 17 mg/dL (8-24); Bun/Creatinine Ratio 45.5 (12.0-20.0); CO2, Blood 33 mmol/L (21-32); Calcium, Blood 8.2 mg/dL (8.5-10.1); Chloride, Blood 99 mmol/L (98-108); Creatinine, Blood 0.37 mg/dL (0.60-1.20); Globulin, Blood 5.4 g/dL (2.2-4.0); Glomerular Filtration Rate >60 (60-); Glucose, Blood 110 mg/dL (70-99); Potassium, Blood 5.1 mmol/L (3.5-5.5); Sodium, Blood 135 mmol/L (136-145); Total Protein, Blood 8.1 g/dL (6.4-8.2); Troponin I <0.015 ng/mL (0.000-0.040)
[2018-05-03 16:16] LABS: Influenza A Negative (NEGATIVE); Influenza B Negative (NEGATIVE)
== END 2018-05-03 17:15 | disposition home or self-care (01) ==
LOC: ER 14:35
PROVIDERS: Physician Assistant
DX: R06.02 Shortness of breath (principal); Z88.5 Allergy status to narcotic agent; Z79.899 Other long term (current) drug therapy; K21.9 Gastro-esophageal reflux disease without esophagitis
CPT/HCPCS: 36415; 71045; 80053; 84484; 85025; 87070; 87077; 87186; 87205; 87804; 93005; 93010; 99285-25

== ENCOUNTER 2018-05-10 01:00 | Observation (INO) | payer OTHER ==
[~2018-05-10] VITALS: Ht 121.9 cm; Wt 45.4 kg
[~2018-05-10 01:00] MED LIST changes: -MUPIROCIN15 GM TOP; +Mupirocin22 GM TOP
[2018-05-10 01:57] LABS: BASOPHILS ABSOLUTE AUTO 0.04 K/mm3 (0.00-0.23); BASOPHILS PERCENT AUTO 0 % (0-2); EOSINOPHILS ABSOLUTE AUTO 0.11 K/mm3 (0.00-0.68); EOSINOPHILS PERCENT AUTO 1 % (0-6); Hematocrit 36.1 % (37.0-53.0); Hemoglobin 11.6 g/dL (13.5-17.5); IMMATURE GRAN ABSOLUTE AUTO 0.03 K/mm3 (0.00-0.10); IMMATURE GRAN PERCENT AUTO 0 % (0-1); LYMPHOCYTES ABSOLUTE AUTO 1.02 K/mm3 (0.84-5.20); LYMPHOCYTES PERCENT AUTO 10 % (21-46); MONOCYTES ABSOLUTE AUTO 1.04 K/mm3 (0.16-1.47); MONOCYTES PERCENT AUTO 10 % (4-13); Mean Corpuscular HGB Conc 32.1 g/dL (31.5-36.5); Mean Corpuscular Volume 109 fL (80-100); Mean Platelet Volume 10.2 fL (9.1-12.4); NEUTROPHILS ABSOLUTE AUTO 7.91 K/mm3 (1.96-9.15); NEUTROPHILS PERCENT AUTO 78 % (41-73); Platelet Count 353 K/mm3 (150-400); RDW Coefficient Variation 14.1 % (11.7-14.2); RDW Standard Deviation 56.1 fL (35.1-46.3); Red Blood Cell Count 3.31 M/mm3 (4.30-5.90); White Blood Cell Count 10.15 K/mm3 (4.00-11.30)
[2018-05-10 02:15] LABS: Alanine Aminotransfer (ALT/SGP 42 U/L (12-78); Albumin, Blood 2.8 g/dL (3.4-5.0); Albumin/Globulin Ratio 0.5 (0.8-1.8); Alk Phos 169 U/L (50-136); Anion Gap 6 mmol/L (6-16); Aspartate Aminotrans (AST/SGOT 24 U/L (12-37); Bilirubin, Total 0.2 mg/dL (0.1-1.0); Blood Urea Nitrogen 14 mg/dL (8-24); Bun/Creatinine Ratio 33.9 (12.0-20.0); CO2, Blood 34 mmol/L (21-32); Calcium, Blood 8.4 mg/dL (8.5-10.1); Chloride, Blood 93 mmol/L (98-108); Creatinine, Blood 0.41 mg/dL (0.60-1.20); Globulin, Blood 5.1 g/dL (2.2-4.0); Glomerular Filtration Rate >60 (60-); Glucose, Blood 122 mg/dL (70-99); Sodium, Blood 133 mmol/L (136-145); Total Protein, Blood 7.9 g/dL (6.4-8.2)
[2018-05-10 05:58] LABS: Hematocrit 36.4 % (37.0-53.0); Hemoglobin 11.9 g/dL (13.5-17.5); Mean Corpuscular HGB 35.3 pg (26.0-34.0); Mean Corpuscular HGB Conc 32.7 g/dL (31.5-36.5); Mean Corpuscular Volume 108 fL (80-100); Mean Platelet Volume 10.1 fL (9.1-12.4); Platelet Count 346 K/mm3 (150-400); RDW Coefficient Variation 14.2 % (11.7-14.2); RDW Standard Deviation 56.5 fL (35.1-46.3); Red Blood Cell Count 3.37 M/mm3 (4.30-5.90); White Blood Cell Count 8.22 K/mm3 (4.00-11.30)
[2018-05-10 06:15] LABS: Alanine Aminotransfer (ALT/SGP 43 U/L (12-78); Albumin, Blood 2.7 g/dL (3.4-5.0); Albumin/Globulin Ratio 0.5 (0.8-1.8); Alk Phos 152 U/L (50-136); Anion Gap 7 mmol/L (6-16); Aspartate Aminotrans (AST/SGOT 16 U/L (12-37); Bilirubin, Total 0.3 mg/dL (0.1-1.0); Blood Urea Nitrogen 13 mg/dL (8-24); Bun/Creatinine Ratio 32.8 (12.0-20.0); CO2, Blood 33 mmol/L (21-32); Calcium, Blood 8.3 mg/dL (8.5-10.1); Chloride, Blood 94 mmol/L (98-108); Globulin, Blood 5.1 g/dL (2.2-4.0); Glomerular Filtration Rate >60 (60-); Glucose, Blood 120 mg/dL (70-99); Potassium, Blood 4.6 mmol/L (3.5-5.5); Sodium, Blood 134 mmol/L (136-145); Total Protein, Blood 7.8 g/dL (6.4-8.2)
[2018-05-10] MEDS ORDERED: KETO15TC TOP (13:03)
[2018-05-10] MEDS ORDERED: DIPH12.5EL PT (13:04)
[2018-05-10] MEDS ORDERED: ALBU3IS NEB (13:05)
[2018-05-10] MEDS ORDERED: IBUP400 PT (13:05)
[2018-05-10] MEDS ORDERED: PROC25S PR (13:06)
[2018-05-10] MEDS ORDERED: TRIPLE ANTIBIO1 EACH TOP (13:09)
[2018-05-10] MEDS ORDERED: VICKS VAPORUB O50 GM TOP (13:11)
[2018-05-10] MEDS ORDERED: [UNRECOGNIZED DRUG - OTHER] TOP (13:12)
--- NOTE | 2018-05-10 19:39 | NUR ---
PM NOTE. ASSUMED CARE OF PT APROX 1900, PT IS A&O TO SELF, PT HAS CHRONIC MENTAL AND PHYSICAL DISABILITY, PT CURRENTLY LIVES IN AN ADULT FOSTER HOME, HE RESPONDS TO VERBAL STIMULI AT THIS TIME AND IS NONVERBAL. PT WAS ADMITTED DUE TO NEEDING AN O2 EVALUATION. TELE INTACT, ST AT 104, PT'S BP 110/74, PT HAS 1+ GENERALIZED EDEMA. L/S COARSE T/O AND DIM IN THE BASES, PT IS CURRENTLY ON 2 L NC WITH SATS >90%. BT PRESENT AND HYPOACTIVE, ABD IS SOFT AND NONTENDER TO PALP, PEG TUBE BUTTON IS IN PLACE. CALL LIGHT IN REACH, BED IS LOCKED AND LOW W/BED ALARM ON WILL CONTINUE TO MONITOR.
--- NOTE | 2018-05-10 20:00 | NUR ---
SHIFT SUMMARY Assumed care of pt upon arrival to unit at 1500. Report recieved from ED nurse Brandon prior to arrival. Pt arrived with two caregivers. Pt transferred from ED gurney to PCU bed using slider sheet. Pt coughed continuously for about 10 minutes, producing copious amounts of molina sputum. The pt's caregiver suctioned sputum from his mouth using yankauer connected to suction. Pt repositioned Q2H, along with checked for soiled attends. Pt does reposition independently in bed, however. Bedside report given to Carolyn MARTINI.
--- NOTE | 2018-05-10 22:40 | NUR ---
PT UPDATE... PT WAS FOUND SITTING IN BED BACKWARDS FACING THE HEAD OF THE BED, PT'S NC WAS OFF AND HIS O2 SATS WERE 79-85% ON RA. NC WAS PLACED BACK ON THE PT AND HE PROMPTLY REMOVED IT AGAIN, PT REFUSED TO KEEP THE NC ON. PT WAS REPOSITIONED AND TV WAS TURNED ON IN AN ATTEMPT TO CALM PT AND DISTRACT HIM, HOWEVER PT CONTINUED TO REMOVE HIS NC. PT'S HOME FACILITY WAS CALLED AND THEY STATED THEY WOULD SEND A [employer] TEST TECHNICIAN TO HELP WITH HIS CARE TO PREVENT THE USE OF RESTRAINTS.
[2018-05-11 06:23] LABS: Magnesium, Blood 2.3 mg/dL (1.6-2.4); Phosphorus, Blood 3.4 mg/dL (2.5-4.9)
--- NOTE | 2018-05-11 07:43 | NUR ---
SHIFT SUMMARY. NO ACUTE CHANGES NOTED THIS SHIFT. PT HAS HAD A ONE ON ONE SINCE APROX 0100, DUE TO THE PT PULLING OFF HIS O2, TUBE FEEDING AND TELE. PT'S VS HAVE BEEN STABLE T/O SHIFT. CALL LIGHT IN REACH, BED IS LOCKED AND LOW WITH BED ALARM ON, WILL CONTINUE TO MONITOR UNTIL REPORT IS GIVEN TO ONCOMING RN.
== END 2018-05-11 14:02 | disposition home or self-care (01) ==
LOC: ER 01:00 → ERHOLD 01:01 → PCU 15:10
PROVIDERS: Emergency Medicine; Hospitalist; ADMIT Internal Medicine
DX: T17.990A Other foreign object in respiratory tract, part unspecified in causing asphyxiation, initial encounter (principal); J96.11 Chronic respiratory failure with hypoxia; A41.9 Sepsis, unspecified organism; R65.20 Severe sepsis without septic shock; J18.9 Pneumonia, unspecified organism; G80.9 Cerebral palsy, unspecified; R53.2 Functional quadriplegia; I10 Essential (primary) hypertension; D63.8 Anemia in other chronic diseases classified elsewhere; E87.1 Hypo-osmolality and hyponatremia; R62.50 Unspecified lack of expected normal physiological development in childhood; Z99.81 Dependence on supplemental oxygen; Z91.041 Radiographic dye allergy status; Z79.899 Other long term (current) drug therapy
CPT/HCPCS: 36415; 71045; 80053; 83735; 84100; 85025; 85027; 92610; 94640; 94667; 94668; 94761; 94762; 96365; 96367; 96372; 99285-25; G0378; J1650; J2543

== ENCOUNTER 2018-06-09 19:34 | Inpatient (IN) | payer OTHER ==
[~2018-06-09] VITALS: Ht 149.9 cm; Wt 66.9 kg
[~2018-06-09 19:34] MED LIST changes: +ALBU3IS NEB; +IBUP400 PT; +TRIPLE ANTIBIO1 EACH TOP; +[UNRECOGNIZED DRUG - OTHER] TOP
[2018-06-09 20:07] LABS: BASOPHILS ABSOLUTE AUTO 0.11 K/mm3 (0.00-0.23); BASOPHILS PERCENT AUTO 1 % (0-2); EOSINOPHILS PERCENT AUTO 0 % (0-6); Hematocrit 44.5 % (37.0-53.0); Hemoglobin 13.8 g/dL (13.5-17.5); IMMATURE GRAN ABSOLUTE AUTO 0.49 K/mm3 (0.00-0.10); IMMATURE GRAN PERCENT AUTO 3 % (0-1); LYMPHOCYTES ABSOLUTE AUTO 0.59 K/mm3 (0.84-5.20); LYMPHOCYTES PERCENT AUTO 3 % (21-46); MONOCYTES ABSOLUTE AUTO 1.82 K/mm3 (0.16-1.47); MONOCYTES PERCENT AUTO 10 % (4-13); Mean Corpuscular HGB 34.9 pg (26.0-34.0); Mean Corpuscular Volume 113 fL (80-100); Mean Platelet Volume 9.9 fL (9.1-12.4); NEUTROPHILS ABSOLUTE AUTO 14.64 K/mm3 (1.96-9.15); NEUTROPHILS PERCENT AUTO 83 % (41-73); Platelet Count 271 K/mm3 (150-400); RDW Coefficient Variation 14.6 % (11.7-14.2); RDW Standard Deviation 62.2 fL (35.1-46.3); Red Blood Cell Count 3.95 M/mm3 (4.30-5.90); White Blood Cell Count 17.65 K/mm3 (4.00-11.30)
[2018-06-09 20:07] LABS: PO2 Arterial 217 mmHg (80-100); pH Blood Arterial 7.13 (7.35-7.45)
[2018-06-09 20:08] LABS: PCO2 Arterial > 106 mmHg (35-45)
[2018-06-09 20:32] LABS: Alanine Aminotransfer (ALT/SGP 37 U/L (12-78); Albumin, Blood 3.2 g/dL (3.4-5.0); Albumin/Globulin Ratio 0.5 (0.8-1.8); Alk Phos 154 U/L (50-136); Anion Gap 2 mmol/L (6-16); Aspartate Aminotrans (AST/SGOT 19 U/L (12-37); Bilirubin, Total 0.4 mg/dL (0.1-1.0); Blood Urea Nitrogen 14 mg/dL (8-24); Bun/Creatinine Ratio 36.1 (12.0-20.0); CO2, Blood 37 mmol/L (21-32); Calcium, Blood 8.8 mg/dL (8.5-10.1); Chloride, Blood 86 mmol/L (98-108); Creatinine, Blood 0.39 mg/dL (0.60-1.20); Globulin, Blood 6.2 g/dL (2.2-4.0); Glomerular Filtration Rate >60 (60-); Glucose, Blood 143 mg/dL (70-99); Potassium, Blood 5.7 mmol/L (3.5-5.5); Sodium, Blood 125 mmol/L (136-145); Total Protein, Blood 9.4 g/dL (6.4-8.2)
[2018-06-09 22:33] LABS: PO2 Arterial 88.7 mmHg (80-100)
--- NOTE | 2018-06-09 23:46 | NUR ---
ASSUMPTION OF CARE: Pt arrived to ICU @ 2155. Pt is intubated and sedated, vent set to A/C 18/450/50%/5, pt breathing at a rate of 21 and O2 %100. HR 79 and BP 95/66. Pt is not arousable (nonverbal at baseline). Peripheral IV x3 patent and intact. Propofol, NS fluid bolus and Abx infusing. Excess coughing with moderate to large amount of thick yellow secretions per ET tube. Pt suctioned/lavaged per RT and propofol drip increased by Mauricio MARTINI per asyncronous breathing with ventilator. Shortly after admission BP's started decreasing to systolic 70's-80's, dopamine infusion initiated at approx 2300 by Mauricio MARTINI. BP now stable.
[2018-06-10 03:43] LABS: Anion Gap 5 mmol/L (6-16); Blood Urea Nitrogen 15 mg/dL (8-24); Bun/Creatinine Ratio 31.8 (12.0-20.0); CO2, Blood 31 mmol/L (21-32); Calcium, Blood 8.1 mg/dL (8.5-10.1); Chloride, Blood 96 mmol/L (98-108); Creatinine, Blood 0.47 mg/dL (0.60-1.20); Glomerular Filtration Rate >60 (60-); Glucose, Blood 122 mg/dL (70-99); Potassium, Blood 4.8 mmol/L (3.5-5.5); Sodium, Blood 132 mmol/L (136-145)
[2018-06-10 03:58] LABS: BASOPHILS ABSOLUTE AUTO 0.03 K/mm3 (0.00-0.23); BASOPHILS PERCENT AUTO 0 % (0-2); EOSINOPHILS PERCENT AUTO 0 % (0-6); Hematocrit 36.3 % (37.0-53.0); Hemoglobin 11.6 g/dL (13.5-17.5); IMMATURE GRAN ABSOLUTE AUTO 0.06 K/mm3 (0.00-0.10); IMMATURE GRAN PERCENT AUTO 0 % (0-1); LYMPHOCYTES ABSOLUTE AUTO 0.65 K/mm3 (0.84-5.20); LYMPHOCYTES PERCENT AUTO 5 % (21-46); MONOCYTES ABSOLUTE AUTO 0.89 K/mm3 (0.16-1.47); MONOCYTES PERCENT AUTO 7 % (4-13); Mean Corpuscular HGB 34.6 pg (26.0-34.0); Mean Platelet Volume 10.2 fL (9.1-12.4); NEUTROPHILS ABSOLUTE AUTO 11.76 K/mm3 (1.96-9.15); NEUTROPHILS PERCENT AUTO 88 % (41-73); Platelet Count 218 K/mm3 (150-400); RDW Coefficient Variation 14.3 % (11.7-14.2); RDW Standard Deviation 57.5 fL (35.1-46.3); Red Blood Cell Count 3.35 M/mm3 (4.30-5.90); White Blood Cell Count 13.39 K/mm3 (4.00-11.30)
[2018-06-10 03:59] LABS: Mean Corpuscular Volume 108 fL (80-100)
--- NOTE | 2018-06-10 06:27 | NUR ---
SHIFT SUMMARY: Pt remains intubated and sedated, responds to painful stimuli. Vent set to A/C 18/450/40%/5, O2 at 98%. VSS with dopamine drip. Lung sounds are course throughout and moderate secretions noted from ET tube and oral suctioning. OG set to low intermintent suction, no secretions noted. Ng cath present draining clear yellow to dark yellow urine. Purulent drainage noted from urethra. Peripheral IV x3, patent and infusing propofol @ 50, NS @ 200ml/hr, dopamine @ 4mcg and abx.
--- NOTE | 2018-06-10 07:52 | NUR ---
ASSUMED CARE: REPORT RECEIVED FROM BENJAMIN Tinajero, RN & TREY, AUDIT TECH. ASSUMED CARE OF THIS PT AT APPROX 0700. ON ASSESSMENT, THE PT IS RESTING QUIETLY. HE REMAINS SEDATED/INTUBATED & WITHDRAWS TO PAINFUL STIMULI. 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 Q2H TURNS TO MAINTAIN SKIN INTEGRITY. PROPOFOL FOR SEDATION & DOPAMINE TO MAINTAIN BP, TITRATION DOC IN FLOWSHEET. VENT SETTINGS AC 18, TV 450, PEEP 5 & FiO2 40%. CAREGIVERS FROM [facility], WHERE PT LIVES, ARE ROUNDING EVERY 2-3 HRS. THEY HAVE BROUGHT IN THE ADAPTER FOR HIS PEG TUBE BUT REQUEST THAT WE REMOVE IT IMMEDIATELY AFTER USE PT HAS HX OF PULLING PEG OUT OF HIS STOMACH. WILL CONTINUE TO MONITOR & UPDATE NEEDED.
[2018-06-10 13:27] LABS: Vancomycin, Trough 14.8 ug/mL (5.0-10.0)
--- NOTE | 2018-06-10 16:58 | NUR ---
Initial Visit: Palliative Care Consult for Advanced Care Planning and End of LIfe/Comfort Care. Spoke with Dr Knutson to comfirm consult for discussion of end of life/comfort care. Dr Knutson is agreeable to have this discussion. Pt is resting in bed, intubated and sedated. Spoke with Pt's nurse Amina and she reports staff from [facility] have been in and out throughout the day. Amina reports no concerns at this time. Called and left message with Health Care Proxy Claudia. Called and spoke with residential program worker ASHLEY. Gave report of Pt's current condition. ASHLEY appears defensive over the phone from beginning of conversation. Atempted to discuss goals of care and ASHLEY reports knowing what palliative care is about and is adamant with keeping Pt a full code. ASHLEY inquires about reason for palliative care consult. Attempted to discuss quality of life and recurring aspiration pneumonia. ASHLEY reports that Health Care Proxy can not make any end of life decisions without a team meeting and with team agreement. ASHLEY reports no concerns with goals of care at this time. Healthcare Proxy Claudia returns this RNs call. Claudia inquires about Pt's condition. Engaged in disussion regarding goals of care with Claudia. Listened as Claudia expresses concerns regarding Pt's quality of life. Claudia reports the Pt's quality of life has significantly decreased and is not in agreement with some of the team members regarding goals of care. Claudia reports that she will initiate a team meeting and have further discussion. No other concerns reported at this time. Will remain available.
--- NOTE | 2018-06-10 18:12 | NUR ---
SHIFT SUMMARY: NO ACUTE CHANGES THIS SHIFT. PT REMAINS SEDATED/INTUBATED. VENT SETTINGS UNCHANGED, AC 18, TV 450, PEEP 5 & FiO2 40%. HE CONTINUES TO WITHDRAW EXTREMITIES TO PAINFUL STIMULI & IS MORE AWAKE THIS AFTERNOON, PURPOSEFULLY REACHING FOR THE ETT & CHEWING ON THE TUBE ALSO. LS REMAINS COARSE T/O BUT CLEARING SOME. COPIOUS AMNTS OF THICK YELLOW/MOSES COLORED SPUTUM SUCTIONED FROM ETT. MONITOR SHOWS SR W/ HR 60-80s. ATTEMPTED TO TITRATE DOPAMINE DRIP OFF THIS SHIFT BUT PT BECAME HYPOTENSIVE WITHIN AN HOUR OF PLACING DOPAMINE ON STANDBY. TITRATION IN FLOWSHEET. TUBE FEEDS THROUGH PEG TUBE ARE BEING TOLERATED WELL AT THIS TIME, RESIDUAL CHARTED. FEED CAN BE ADVANCED AT 2000 TONIGHT. FORMULA IS VITAL HP, CURRENT RATE 15 ML/HR W/ 30 ML H2O FLUSH Q4. TEMP CALLAHAN REMAINS PATENT/DRAINING DARK YELLOW URINE. SKIN OVERALL CDI. WILL CONTINUE TO MONITOR & UPDATE NEEDED.
--- NOTE | 2018-06-10 19:28 | NUR ---
ASSUMED PT CARE AT 1915 PT INTUBATED AND SEDATED. VENT SETTINGS: AC 18, TV 450, PEEP 5, FIO2 40%; OXYGEN SATURATIONS 100%. PROPOFOL INFUSING VIA PERIPHERAL 20G AT 60MCG/KG; DOPAMINE VIA LEFT MIDLINE AT 1MCG/KG. NS TKO. VITAL HIGH PROTEIN INFUSING VIA PEG TUBE AT 15ML/HR; GOAL IS 25MLS/HR DUE TO BE ADJUSTED AT 1999. OG IS CLAMPED. CALLAHAN CATH IS PATENT AND DRAINING TO GRAVITY PATRICIA COLORED URINE. PT IS SITTING UP IN BED LEANING FORWARD; VERY CONTRACTED. BILATERAL SOFT WRIST RESTRAINTS REMAIN IN PLACE TO PREVENT SELF EXTUBATION. NO CAREGIVERS AT BEDSIDE AT THIS TIME. PT APPEARS COMFORTABLE AND NOT IN ANY DISTRESS.
--- NOTE | 2018-06-10 23:00 | NUR ---
PLACED CALL TO DR. WATSON RESP RATE WAS IN THE 40'S, PT PULLING ON THE RESTRAINTS, OPENED EYES. MEDICATED WITH 50MCG OF FENTANYL AND PROPOFOL MAXED AT 50MCG/KG. FENTANYL UNEFFECTIVE. NEW ORDERS FOR PRECEDEX GTT.
--- NOTE | 2018-06-10 23:15 | NUR ---
VENTILATOR TROUBLESHOOTING DIDN'T NEED TO START PRECEDEX GTT D/T VENTILATOR ACCUMULATING MOISTURE IN TUBING, WHICH WAS TRIGGERING HIGH PEAK PRESSURES AND INCREASED RESP RATE. AFTER MOISTURE WAS REMOVED FROM TUBING; PEAK PRESSURES DROPPED AND RESP RATE DECREASED. PRECEDEX PLACED IN FRIDGE.
--- NOTE | 2018-06-11 02:00 | NUR ---
PRECEDEX GTT STARTED AT 0.3MCG/KG D/T PT BEING WIDE AWAKE, PULLING ON RESTRAINTS AND RESP RATE INCREASING. PROPOFOL MAXED TO 50MCG/KG AND FENTANYL 50MCG ADMINISTERED PER ORDERS; UNEFFECTIVE.
[2018-06-11 04:21] LABS: Base Excess Venous 7.7 mmol/L; Bicarbonate Venous 31.3 mmol/L (24.0-30.0); PCO2 Venous 33.5 mmHg (38-42); PO2 Venous 101 mmHg (38-42); pH Blood Venous 7.56 (7.34-7.37)
[2018-06-11 04:26] LABS: BASOPHILS ABSOLUTE AUTO 0.05 K/mm3 (0.00-0.23); BASOPHILS PERCENT AUTO 1 % (0-2); EOSINOPHILS PERCENT AUTO 0 % (0-6); Hematocrit 29.2 % (37.0-53.0); Hemoglobin 9.9 g/dL (13.5-17.5); IMMATURE GRAN ABSOLUTE AUTO 0.02 K/mm3 (0.00-0.10); IMMATURE GRAN PERCENT AUTO 0 % (0-1); LYMPHOCYTES ABSOLUTE AUTO 1.34 K/mm3 (0.84-5.20); LYMPHOCYTES PERCENT AUTO 18 % (21-46); MONOCYTES ABSOLUTE AUTO 1.03 K/mm3 (0.16-1.47); MONOCYTES PERCENT AUTO 14 % (4-13); Mean Corpuscular HGB 34.6 pg (26.0-34.0); Mean Corpuscular HGB Conc 33.9 g/dL (31.5-36.5); Mean Corpuscular Volume 102 fL (80-100); Mean Platelet Volume 10.2 fL (9.1-12.4); NEUTROPHILS ABSOLUTE AUTO 4.93 K/mm3 (1.96-9.15); NEUTROPHILS PERCENT AUTO 67 % (41-73); Platelet Count 227 K/mm3 (150-400); RDW Coefficient Variation 15.1 % (11.7-14.2); RDW Standard Deviation 55.9 fL (35.1-46.3); Red Blood Cell Count 2.86 M/mm3 (4.30-5.90); White Blood Cell Count 7.37 K/mm3 (4.00-11.30)
[2018-06-11 04:44] LABS: Magnesium, Blood 2.1 mg/dL (1.6-2.4)
[2018-06-11 04:51] LABS: Alanine Aminotransfer (ALT/SGP 27 U/L (12-78); Albumin, Blood 2.1 g/dL (3.4-5.0); Albumin/Globulin Ratio 0.5 (0.8-1.8); Alk Phos 81 U/L (50-136); Anion Gap 6 mmol/L (6-16); Aspartate Aminotrans (AST/SGOT 19 U/L (12-37); Bilirubin, Total 0.5 mg/dL (0.1-1.0); Blood Urea Nitrogen 12 mg/dL (8-24); Bun/Creatinine Ratio 21.4 (12.0-20.0); CO2, Blood 29 mmol/L (21-32); Calcium, Blood 7.8 mg/dL (8.5-10.1); Chloride, Blood 102 mmol/L (98-108); Creatinine, Blood 0.56 mg/dL (0.60-1.20); Glomerular Filtration Rate >60 (60-); Glucose, Blood 88 mg/dL (70-99); Phosphorus, Blood 2.5 mg/dL (2.5-4.9); Sodium, Blood 137 mmol/L (136-145)
[2018-06-11 04:52] LABS: Potassium, Blood 2.8 mmol/L (3.5-5.5); Total Protein, Blood 6.1 g/dL (6.4-8.2)
--- NOTE | 2018-06-11 05:33 | NUR ---
PLACED CALL TO DR. TYLER AT 0525 R/T CRITICAL LAB VALUE OF VBG 7.56 WITH VENT SETTINGS AC 18, TV 450, PEEP 5, FIO2 30%. NEW ORDERS TO CHANGE RATE TO 12 AND TV 350; WELL TO REPEAT VBG IN ONE HOUR. RT NOTIFIED OF VENT SETTING CHANGES.
--- NOTE | 2018-06-11 05:38 | NUR ---
END OF SHIFT SUMMARY PT REMAINS INTUBATED AND SEDATED. VENT SETTINGS: AC 12, TV 350, PEEP 5, FIO2 30%. PROPOFOL AT 40MCG/MIN, PRECEDEX AT 0.3MCG/HR. DOPAMINE CONTINUES AT 1MCG/KG/MIN; HOWEVER, BP'S VERY LABILE WITH REPOSITIONING AND COUGHING FITS; DOPAMINE ADJUSTED ACCORDINGLY. NS TKO. VITAL HIGH PROTEIN CONTINUES AT GOAL OF 25MLS/HR; RESIDUALS ALSO VERY LABILE. DIDN'T INCREASE TF RATE AT 2000 TO GOAL D/T RESIDUAL OF 150CC. ENDED UP INCREASING RATE AT 0000 D/T RESIDUAL OF 0; HOWEVER, AFTER INCREASED TO GOAL OF 25MLS/HR AT 0400 RESIDUAL WAS 200; LEFT TF AT GOAL RATE. CALLAHAN IS PATENT AND DRAINING PATRICIA/GREEN, CLEAR URINE TO GRAVITY. PT DOES NOT APPEAR TO BE IN ANY PAIN. PRIOR TO PRECEDEX GTT PT WAS MEDICATED WITH FENTANYL FOR ADJUNCT SEDATION. CAREGIVERS FROM [facility] HAVE BEEN BY TO SEE PT. PT DOES NOT APPEAR TO BE IN ANY DISTRESS AT THIS TIME.
[2018-06-11 06:54] LABS: Base Excess Venous 7.4 mmol/L; Bicarbonate Venous 30.7 mmol/L (24.0-30.0); PCO2 Venous 38 mmHg (38-42); PO2 Venous 69.6 mmHg (38-42); pH Blood Venous 7.51 (7.34-7.37)
--- NOTE | 2018-06-11 08:03 | NUR ---
ASSUMED CARE: REPORT RECEIVED FROM VAMSI Rodrigues RN. ASSUMED CARE OF THIS PT AT APPROX 0700. ON ASSESSMENT, THE PT IS RESTING QUIETLY. HE REMAINS SEDATED/INTUBATED. VENT SETTINGS AC 12, TV 350, PEEP 5 & FiO2 40%. PROPOFOL & PRECEDEX USED FOR SEDATION & COMFORT, TITRATION IN FLOWSHEET. TF RESIDUAL OF 280 ML ON CHECK THIS AM, TF TO BE HELD UNTIL 0930 & THEN RESIDUAL WILL BE RECHECKED PRIOR TO RESUMING FEED. BP LABILE & POSITIONAL, DOPAMINE CONTINUES PER FLOWSHEET. LOW POTASSIUM OF 2.8 NOTED ON AM LABWORK, WILL CALL PROVIDER THIS AM TO NOTIFY & REQUEST REPLETION. WILL CONTINUE TO MONITOR & UPDATE NEEDED.
--- NOTE | 2018-06-11 08:11 | NUR ---
DR. JUAREZ: CALL TO PROVIDER REGARDING PT's LOW POTASSIUM OF 2.8 THIS AM. SHE IS CURIOUS IF PT WOULD BE ABLE TO TOLERATE PT ADMIN OF POTASSIUM REPLETION. SHE HAS BEEN NOTIFIED OF PT's HIGH RESIDUAL THIS AM & THAT TF HAS BEEN PLACED ON HOLD. PT's OTHER RESIDUALS HAVE BEEN LOWER & HE CONTINUES TO HAVE BT x4. RESIDUALS HAVE BEEN LABILE & POSITIONAL DEPENDENT ON HOW THE PT IS LAYING IN BED. SHE STS THAT SHE WILL PLACE ORDERS FOR POTASSIUM REPLETION. WILL CONTINUE TO MONITOR & UPDATE NEEDED.
--- NOTE | 2018-06-11 09:03 | NUR ---
DR. TYLER: PROVIDER IN UNIT TO SEE PT. SHE STS SHE WOULD LIKE TO ATTEMPT A SBT & POSSIBLY EXTUBATE THE PT TODAY. SHE REQUESTS THAT PROPOFOL BE TITRATED DOWN & THAT PRECEDEX REMAIN ON DURING THE TRIAL. SETTINGS TO BE SPONTANEOUS W/ PS 5/5 & FiO2 30%. HAYDEE De Los Santos RT, HAS BEEN NOTIFIED OF THIS. PROPOFOL TITRATION DOC IN FLOWSHEET. WILL CONTINUE TO MONITOR & UPDATE NEEDED.
--- NOTE | 2018-06-11 09:30 | NUR ---
SPONTANEOUS BREATHING TRIAL: VENT SETTINGS CHANGED TO SPONTANEOUS W/ PS 06/26 @ 0920. PT IS NOT TOLERATING SBT WELL & HAS AN INCREASED RR OF 25-35 & LOWER TV's OF APPROX 300-350. HE HAS NOW BEEN SWITCHED BACK TO PRIOR VENT SETTINGS: AC 12, TV 350, PEEP 5 & FiO2 30% AT 0935. SEDATION HAS BEEN RESUMED. PT NOW RESTING QUIETLY. THERE ARE NO PLANS TO EXTUBATE AT THIS TIME R/T SBT & WORSENED CXR ON REVIEW BY DR. TYLER. WILL CONTINUE TO MONITOR & UPDATE NEEDED.
[2018-06-11 12:57] LABS: Base Excess Venous 5.2 mmol/L; Bicarbonate Venous 28.1 mmol/L (24.0-30.0); PCO2 Venous 48.8 mmHg (38-42); PO2 Venous 52.9 mmHg (38-42)
[2018-06-11 14:03] LABS: Vancomycin, Trough 15.2 ug/mL (5.0-10.0)
--- NOTE | 2018-06-11 18:18 | NUR ---
SHIFT SUMMARY: NO ACUTE CHANGES THIS SHIFT. PT REMAINS SEDATED/INTUBATED. NO CHANGES TO VENT SETTINGS SINCE SBT THIS AM. LS ARE DIM T/O, PT CONTINUES HAVING MOD AMNTS OF THICK WHITE SPUTUM SUCTIONED THROUGH ETT. MONITOR SHOWS SINUS RAMIRO, HR AVG 50s. BP STABLE W/ DOPAMINE DRIP AT 1 MCG/KG/MIN. BT HYPOACTIVE x4, TF CONTINUES INFUSING AT DECREASED RATE OF 15 ML/HR. PT IS TOLERATING THIS WELL W/ LOWER RESIDUALS NOW THAT REGLAN HAS BEEN RESTARTED. TEMP CALLAHAN PATENT/DRAINING DARK YELLOW-GREEN URINE. SKIN OVERALL CDI. WILL CONTINUE TO MONITOR & REPORT OFF TO ONCOMING RN.
--- NOTE | 2018-06-11 20:08 | NUR ---
ASSUMED PT CARE AT 1915 PT REMAINS INTUBATED AND SEDATED; VENT SETTINGS: AC 12, TV 300, PEEP 5, FIO2 30%. PROPOFOL AT 30MCG/KG/MIN AND PRECEDEX AT 0.2 MCG/KG/HR. PT APPEARS COMFORTABLE AND RIDING THE VENT WITH RR 12. DOPAMINE CONTINUES AT 1MCG/KG/MIN; HR 48. BLOOD PRESSURES LABILE WITH ACTIVITY AND SUCTIONING; AVG SBP 100'S. PT OPENS EYES TO PRESSURE/PAIN; WITHDRAWALS FROM PAINFUL STIMULI. PT REMAINS VERY CONTRACTED; PILLOWS POSITIONED ACCORDINGLY. BILATERAL SOFT WRIST RESTRAINTS REMAIN IN PLACE. VITAL HIGH PROTEIN INFUSING AT 15MLS/HR D/T HIGH RESIDUALS. CALLAHAN CATH IS PATENT AND DRAINING PATRICIA, GREEN URINE TO GRAVITY. MIDLINE TO CHRISTINA; INFUSING. 20G TO RIGHT AC; SL. 20G TO RIGHT FA; INFUSING. PT APPEARS COMFORTABLE AT THIS TIME; NO CAREGIVERS AT BEDSIDE AT THIS TIME.
[2018-06-12 04:15] LABS: Base Excess Venous 4.2 mmol/L; Bicarbonate Venous 27.2 mmol/L (24.0-30.0); PCO2 Venous 57.9 mmHg (38-42); PO2 Venous 70 mmHg (38-42); pH Blood Venous 7.33 (7.34-7.37)
[2018-06-12 04:16] LABS: BASOPHILS ABSOLUTE AUTO 0.06 K/mm3 (0.00-0.23); BASOPHILS PERCENT AUTO 1 % (0-2); EOSINOPHILS PERCENT AUTO 2 % (0-6); Hematocrit 31.8 % (37.0-53.0); Hemoglobin 10.1 g/dL (13.5-17.5); IMMATURE GRAN ABSOLUTE AUTO 0.01 K/mm3 (0.00-0.10); IMMATURE GRAN PERCENT AUTO 0 % (0-1); LYMPHOCYTES ABSOLUTE AUTO 0.98 K/mm3 (0.84-5.20); LYMPHOCYTES PERCENT AUTO 20 % (21-46); MONOCYTES ABSOLUTE AUTO 0.57 K/mm3 (0.16-1.47); MONOCYTES PERCENT AUTO 12 % (4-13); Mean Corpuscular HGB 34.6 pg (26.0-34.0); Mean Corpuscular HGB Conc 31.8 g/dL (31.5-36.5); Mean Platelet Volume 10.1 fL (9.1-12.4); NEUTROPHILS PERCENT AUTO 64 % (41-73); Platelet Count 218 K/mm3 (150-400); RDW Coefficient Variation 15.7 % (11.7-14.2); RDW Standard Deviation 62.2 fL (35.1-46.3); Red Blood Cell Count 2.92 M/mm3 (4.30-5.90); White Blood Cell Count 4.82 K/mm3 (4.00-11.30)
[2018-06-12 04:18] LABS: Mean Corpuscular Volume 109 fL (80-100)
[2018-06-12 04:33] LABS: Anion Gap 6 mmol/L (6-16); Blood Urea Nitrogen 9 mg/dL (8-24); Bun/Creatinine Ratio 18.1 (12.0-20.0); CO2, Blood 29 mmol/L (21-32); Calcium, Blood 7.9 mg/dL (8.5-10.1); Chloride, Blood 105 mmol/L (98-108); Glomerular Filtration Rate >60 (60-); Glucose, Blood 94 mg/dL (70-99); Magnesium, Blood 2.3 mg/dL (1.6-2.4); Phosphorus, Blood 4.2 mg/dL (2.5-4.9); Potassium, Blood 3.7 mmol/L (3.5-5.5); Sodium, Blood 140 mmol/L (136-145)
--- NOTE | 2018-06-12 05:30 | NUR ---
SBT PROPOFOL TITRATED OFF AT 0400. SBT STARTED AT 0425 WITH PRESSURE SUPPORT OF 5/5; FIO2 30%. PRECEDEX RESTARTED AT 1.4MCG/KG/HR AT 0445 AND FENTANYL 50MCG ADMINISTERED PER ORDERS D/T PT GAGGING/COUGHING ON TUBE. PT ABLE TO RELAX THEREAFTER; THEREFORE, PRECEDEX TURNED DOWN TO 0.7MCG/KG/HR. AT BASELINE PT DOESN'T FOLLOW COMMANDS; HOWEVER, PT ABLE TO OPEN EYES TO NOXIOUS STIMULI. GAG REFLEX PRESENT. CUFF LEAK PRESENT. COUGH IS STRONG. VS REMAINED STABLE WITH DOPAMINE GTT OFF. TV GREATER THAN 300 AND RESP RATE AVG 15. PT REMAINED ON SPONTANEOUS UNTIL 524 WHEN PT COULDN'T TOLERATE IT ANYMORE AND WAS ONLY PULLING 150-200 TV; SWITCHED BACK TO AC 12, TV 300, PEEP 5, FIO2 30%
--- NOTE | 2018-06-12 05:57 | NUR ---
END OF SHIFT SUMMARY NO ACUTE CHANGES THIS SHIFT. PT REMAINS INTUBATED AND SEDATED. VENT SETTINGS REMAIN THE SAME FROM START OF SHIFT. PROPOFOL OFF; PRECEDEX AT 0.7MCG/KG/HR WITH ADJUNCT FENTANYL 50MCG WITH REPOSITIONING AND BATHING PT BECOMES AGITATED VERY EASILY. DOPAMINE GTT OFF; BP LABILE, BUT STABLE. SINUS BRADYCARDIA; HR 40-50'S, BUT UP TO 80 WITH AGITATION. OG REMAINS CLAMPED. VITAL HIGH PROTEIN REMAINS INFUSING VIA PEG TUBE AT 15MLS/HR; RESIDUALS REMAINS AROUND 200; DID NOT ADVANCE TO GOAL OF 25MLS/HR. BILATERAL SOFT WRIST RESTRAINTS REMAIN IN PLACE. PT APPEARS COMFORTABLE AT THIS TIME. CAREGIVERS STOPPED BY OCCASSIONALLY TO WRITE DOWN VS. PT DOES NOT APPEAR TO BE IN ANY ACUTE DISTRESS AT THIS TIME.
--- NOTE | 2018-06-12 08:25 | NUR ---
[employer] EMPLOYEE VISITED. PT SEDATED ON PRECEDEX AND DID NOT SEEM TO RESPOND. LUNGS QUITE DIMINISHED ON L AND SL ON R SIDE. VENT SETTINGS AT AC 300, 30%, 5PEEP. ATTENDS IS DRY. PEG TUBE SITE CLEANED AND DOES NOT HAVE ANY IRRITATION. MINIMAL UO PATRICIA NOTED. PT IS RESTRAINED. PT IS SPONT MOVING AND OCC RESTLESS BUT IS NOT FOLLOWING COMMANDS ON PRECEDEX GTT AT 0.7MCG.
--- NOTE | 2018-06-12 11:48 | NUR ---
1110 pt selF EXTUBATED. ORAL SX OF SECREATIONS AND DEEP NT SX OF CREAMY SX WAS OBTAINED PER DR TYLER. PT TITRATED TO O2 AT 4L PER OXY. AND SATS IN UPPER 90 RANGE. PT RESTRAINTS REMAIN ON AND PRECEDEX GTT REMAINS AT 0.5 MCG FOR NOW. WILL FOLLOW. DIURESIS NOTED AND URINE IS CLEAR AFTER 20MG OF LASIX.
--- NOTE | 2018-06-12 19:42 | NUR ---
PT HAS RESTED WELL SENCE EXTUBATION AND ON JAN. PRECEDEX GTT NOW AT 0.4MCG. PT HAS HAD DEEP THROAT SECREATIONS THAT HAVE BEEN SX OUT AND GREATLY IMPROVING UPPER AIRWAY SOUNDS, SOME OLD BLOOD TINGED SX NOTED AND THICK YELLOW SX. PT HAS TOLERATED TF WITH NOTED RESIDUALS TODAY. TF FORMULA AND TUBING CHANGED TODAY. I/O NOTED.
--- NOTE | 2018-06-12 20:02 | NUR ---
PATIENT AWAKE PULLING OFF OXYGEN DESPITE BILAT WRIST RESTRAINTS. BIOX 83% ON RA BIOX 95% ON 4L/OXY. PRECEDEX CONTINUES AT 0.4MCG. PEG TUBE IN PLACE WITH TUBEFEEDING VITAL HP AT 25/HR WITH 80 CC RESIDUAL REFED. PATIENT HAS HX OF CEREBRAL PALSY WITH CONTRACTURES TO ALL EXTREMITIES. PATIENT ASSISTING WITH REPOSITIONING BUT DOESN'T FOLLOW DIRECTIONS.
[2018-06-13 04:02] LABS: BASOPHILS ABSOLUTE AUTO 0.07 K/mm3 (0.00-0.23); BASOPHILS PERCENT AUTO 1 % (0-2); EOSINOPHILS ABSOLUTE AUTO 0.13 K/mm3 (0.00-0.68); EOSINOPHILS PERCENT AUTO 2 % (0-6); Hematocrit 33.2 % (37.0-53.0); Hemoglobin 10.6 g/dL (13.5-17.5); IMMATURE GRAN ABSOLUTE AUTO 0.02 K/mm3 (0.00-0.10); IMMATURE GRAN PERCENT AUTO 0 % (0-1); LYMPHOCYTES ABSOLUTE AUTO 1.14 K/mm3 (0.84-5.20); LYMPHOCYTES PERCENT AUTO 14 % (21-46); MONOCYTES ABSOLUTE AUTO 0.84 K/mm3 (0.16-1.47); MONOCYTES PERCENT AUTO 11 % (4-13); Mean Corpuscular HGB 34.5 pg (26.0-34.0); Mean Corpuscular HGB Conc 31.9 g/dL (31.5-36.5); Mean Corpuscular Volume 108 fL (80-100); Mean Platelet Volume 9.7 fL (9.1-12.4); NEUTROPHILS ABSOLUTE AUTO 5.82 K/mm3 (1.96-9.15); NEUTROPHILS PERCENT AUTO 73 % (41-73); Platelet Count 234 K/mm3 (150-400); RDW Coefficient Variation 15.3 % (11.7-14.2); RDW Standard Deviation 61.1 fL (35.1-46.3); Red Blood Cell Count 3.07 M/mm3 (4.30-5.90); White Blood Cell Count 8.02 K/mm3 (4.00-11.30)
[2018-06-13 04:19] LABS: Anion Gap 3 mmol/L (6-16); Blood Urea Nitrogen 11 mg/dL (8-24); Bun/Creatinine Ratio 20.7 (12.0-20.0); CO2, Blood 35 mmol/L (21-32); Calcium, Blood 8.3 mg/dL (8.5-10.1); Chloride, Blood 105 mmol/L (98-108); Creatinine, Blood 0.53 mg/dL (0.60-1.20); Glomerular Filtration Rate >60 (60-); Glucose, Blood 91 mg/dL (70-99); Phosphorus, Blood 3.8 mg/dL (2.5-4.9); Potassium, Blood 4.1 mmol/L (3.5-5.5); Sodium, Blood 143 mmol/L (136-145)
--- NOTE | 2018-06-13 06:37 | NUR ---
SUMMARY PATIENT RESTING QUIETLY, CONFUSION CONTINUES AND IS VERY UNPREDICTABLE. PULLING ON LINES AND CORDS. BILAT WRIST RESTRAINT CONTINUES. PRECEDEX CONTINUES AT 0.4MCG. TUBE FEEDING CONTINUES PER PEG TUBE SEE I&O FOR RESIDUAL.
--- NOTE | 2018-06-13 09:00 | NUR ---
PT HAD UPPER AIRWAY SECREATIONS THAT WERE ABLE TO SX, WITH THICK YELLOW SECREATIONS WITH GOOD CLEARING. PT TOLERATING TF WELL AND PEG TUBE IS INTACT. URINE IS CLEAR YELLOW. PT CONT TO BE RESTRAINED DUE TO PULLING AT LINES AND INABLITY TO COOPERATED WELL. PRECEDEX GTT DEC TO 0.3 MCG AND WILL FOLLOW FOR POSSIBILITY TO D/C.
--- NOTE | 2018-06-13 09:40 | NUR ---
IT SEEMS PT IS WAKING UP FROM PRECEDEX, THAT HE IS MOBILIZING MORE SECREATIONS. ATTEMPTING TO ASSIST WITH THESE PER SX. WILL FOLLOW.
--- NOTE | 2018-06-13 15:49 | NUR ---
PT CONT. WITH FREQUENT ORAL SX NEEDS OF WHITE AND MOSES SECREATIONS SX ORALLY. PT HAS BEEN OFF PRECEDEX SINCE 1049.
--- NOTE | 2018-06-13 17:24 | NUR ---
PT CONT TO HAVE FREQUENT COUGHING OF WHITE MOSES SECREATIONS. SATS NOTED WITH O2 AT 3L. PT REMAINS WIH COARSE LUNG SOUNDS AND PT REMAINS RESTRAINED. I/O NOTE. PT HAS STOOLED X2 O LOOSE STOOL. OTHERWISE TOLERATING TF.
--- NOTE | 2018-06-13 18:52 | NUR ---
PT NOTE... THIS RN HAD A SHORT CONVERSATIONS WITH IRMA WHO IS ONE OF THE DIRECTORS AT [facility]. A REPORT AND REMINDER TO HER RE HER STAFF BEING INVOLVED IN PT CARE WAS EXPRESSED.
--- NOTE | 2018-06-13 19:30 | NUR ---
ASSUME CARE: REPORT RECIEVED FROM OFF GOING RN BHASKAR. MONITOR INTACT SHOWING SINUS RHYTHM. HEART RATE 60'S-80'S. VISITS WITH VISITOR IN ROOM. LUNG SOUNDS CLEAR UPPER LOBES DECREASED ON L AND BASES. RESPIRATIONS REGULAR AND EASY AT REST. BECOMES SHORT OF BREATH WITH ACTIVITY. ABDOMEN SOFT WITH BOWEL SOUNDS FOUR QUADS. VOIDS A MBER URINE WHEN UP TO BSC. UP WITH MINIMAL ONE PERSON ASSIST. SM UNFORMED BILE STOOL. DRESSING TO COCCYX DRY INTACT.PAS TO LOWER EXTREMITIES. CON NAUSEA. MEDICATED WITH ZOFRAN IV. CONTINUE TO MONITOR AND REPORT CHANGE IN PATIENT CONDITION.
--- NOTE | 2018-06-13 19:30 | NUR ---
ASSUME CARE REPORT RECIEVED FROM OFF GOING RN BHASKAR. MONITOR INTACT SHOWING SINUS RHYTHM. HEART RATE 80'S. LUNG SOUNDS CLEAR WITH DECREASED BASES. COUPIOUS THIN SECREATIONS WITH COUGH. TUBE FEEDING INFUSING AT 25ML/HR. WITH 25ML REFED WITH ORAL CARE. ABD SOFT WITH BOWEL SOUNDS TEMP PROBE CALLAHAN PATENT DRAINING PATRICIA URINE. CONTRACTURED WITH ATTENDS IN PLACE. CONTINUE TO MONITOR AND REPORT CHANGE IN PATIENT CONDITION.
[2018-06-14 03:36] LABS: BASOPHILS ABSOLUTE AUTO 0.06 K/mm3 (0.00-0.23); BASOPHILS PERCENT AUTO 1 % (0-2); EOSINOPHILS ABSOLUTE AUTO 0.02 K/mm3 (0.00-0.68); EOSINOPHILS PERCENT AUTO 0 % (0-6); Hemoglobin 10.6 g/dL (13.5-17.5); IMMATURE GRAN ABSOLUTE AUTO 0.01 K/mm3 (0.00-0.10); IMMATURE GRAN PERCENT AUTO 0 % (0-1); LYMPHOCYTES ABSOLUTE AUTO 0.99 K/mm3 (0.84-5.20); LYMPHOCYTES PERCENT AUTO 12 % (21-46); MONOCYTES PERCENT AUTO 11 % (4-13); Mean Corpuscular HGB 34.1 pg (26.0-34.0); Mean Corpuscular HGB Conc 32.1 g/dL (31.5-36.5); Mean Corpuscular Volume 106 fL (80-100); Mean Platelet Volume 9.8 fL (9.1-12.4); NEUTROPHILS PERCENT AUTO 77 % (41-73); Platelet Count 230 K/mm3 (150-400); RDW Standard Deviation 58.5 fL (35.1-46.3); Red Blood Cell Count 3.11 M/mm3 (4.30-5.90); White Blood Cell Count 8.58 K/mm3 (4.00-11.30)
[2018-06-14 03:53] LABS: Anion Gap 6 mmol/L (6-16); Blood Urea Nitrogen 9 mg/dL (8-24); Bun/Creatinine Ratio 21.7 (12.0-20.0); CO2, Blood 33 mmol/L (21-32); Calcium, Blood 8.3 mg/dL (8.5-10.1); Chloride, Blood 103 mmol/L (98-108); Creatinine, Blood 0.42 mg/dL (0.60-1.20); Glomerular Filtration Rate >60 (60-); Glucose, Blood 87 mg/dL (70-99); Magnesium, Blood 2.1 mg/dL (1.6-2.4); Phosphorus, Blood 2.8 mg/dL (2.5-4.9); Potassium, Blood 2.9 mmol/L (3.5-5.5); Sodium, Blood 142 mmol/L (136-145)
--- NOTE | 2018-06-14 06:12 | NUR ---
SHIFT SUMMARY MONITOR INTACT SHOWING SINUS RHYTHM. HEART RATE 80'S. LUNG SOUNDS CLEAR COARSE DECREASED BASES.RESPIRATIONS 18-24 SPO2 84-96% ABDOMEN SOFT WITH BOWEL SOUNDS FOUR QUADS. TF INFUSING AT 25ML WITH 50ML RESIDUAL REFED WITH ORAL CARE. CALLAHAN PATENT DRAINING PATRICIA URINE. TRACE GENERALIZED EDEMA. FREQUENT COUPIOUS AMTS CLEAR WHITE THIN ORAL SECRETIONS. CALLAHAN TEMP PROBE INTACT TEMP 99.5-99.9 THIS SHIFT. CONTINUE TO MONITOR AND REPORT CHANGE IN PATIENT CONDITION. REMAINS IN SOFT WRIST RESTRAINTS TO PROTCET INADVERTENT REMOVAL OF LINES /TUBES.
--- NOTE | 2018-06-14 08:15 | NUR ---
INITIAL ASSESSMENT PATIENT IS RESTING QUIETLY IN BED. PATIENT HAS CEREBRAL PALSY, CONTRACTURES, AND WITHDRAWS FROM PAINFUL STIMULI. PATIENT HAS A TEMPERATURE OF 99.0 DEGREES FAHRENHEIT. PATIENT IS SATTING 92% OR GREATER ON 4L NC, TITRATED DOWN FROM 5L. PATIENT LUNG SOUNDS ARE CLEAR UPON INSPIRATION BUT COARSE UPON EXPIRATION IN THE UPPER LOBES, AND COARSE IN THE LOWER LOBES. PATIENT HAS A PRODUCTIVE COUGH AND REQUIRES ORAL SUCTIONING DUE TO COPIOUS THICK WHITE ORAL SECRETIONS. PATIENT IN NSR WITH HR IN THE 80S. SBP IS IN THE 170S. PATIENT HAS NORMOACTIVE BOWEL TONES WITH PEG TUBE IN PLACE. PATIENT HAS JEVITY 1.2 INCREASED AND INFUSING AT GOAL RATE OF 35 ML/HR. RESIDUAL OF [address] AND DRAINING YELLOW URINE WITH SEDIMENT. PATIENT HAS DRY MUCOUS MEMBRANES BUT OTHERWISE SKIN IS WNL AND C/D/I THROUGHOUT. NS TKO. BED LOW. CALL LIGHT IN REACH. WILL CONTINUE TO MONITOR.
--- NOTE | 2018-06-14 09:52 | NUR ---
SPOKE TO DR. JACKSON- UPDATED ON PATIENT. INFORMED THAT PATIENT'S BP HAS BEEN HYPERTENSIVE- SBP IN THE 170S. INFORMED THAT POTASSIUM 2.9 THIS AM. WRITING ORDERS.
--- NOTE | 2018-06-14 10:50 | NUR ---
SPOKE TO PALLIATIVE CARE ON PATIENT STATUS.
--- NOTE | 2018-06-14 11:03 | NUR ---
Asked by RN to research Deo's POLST for accuracy/possible update. Deo has a care-family therapist at [facility] who has signed his POLST in June of 2005. According to ED physician documentation, upon Deo's arrival, his care-family therapist was asked to clarify code status. Physician was informed Deo is to remain a Full Code. Currently, Deo appears comfortable and well cared-for by excellent nursing. Perhaps advanced care planing could be readdressed if pt's condition declines and/or apparent suffering arises. Prayer provided. I will remain available.
--- NOTE | 2018-06-14 11:49 | NUR ---
PATIENT IS RESTING IN BED. NO ACUTE CHANGES IN NEURO AT THIS TIME. PATIENT IS AFEBRILE. PATIENT IS SATTING AT 90% OR GREATER ON 4 L NC. PATIENT HAS HAD SUCTIONING WITH COPIOUS THICK FROTHY WHITE ORAL SECRETIONS. PATIENT IS NSR W HR IN THE 90S. SBP IN THE 180S, PATIENT WAS GIVEN PRN HYDRALAZINE FOR THIS. PATIENT HAD A SMEAR OF A BM WHILE ATTENDS WERE BEING CHANGED. PATIENT HAS JEVITY 1.2 INFUSING AT 35 ML/HR WITH RESIDUAL OF 10 REINSTILLED. CALLAHAN WAS REMOVED BUT PATIENT REMAINS IN ATTENDS FOR INCONTINENCE. SKIN IS C/D/I. NO OTHER ACUTE CHANGES TO NOTE AT THIS TIME. WILL CONTINUE TO MONITOR.
--- NOTE | 2018-06-14 12:36 | NUR ---
SBP 159 AFTER ADMINISTRATION OF PRN HYDRALAZINE. WILL CONTINUE TO MONITOR.
--- NOTE | 2018-06-14 16:05 | NUR ---
SPOKE TO DR. JACKSON ABOUT PATIENT'S HYPERTENSION. SBP CURRENTLY 185. STATED SHE WOULD PUT ORDERS IN.
--- NOTE | 2018-06-14 17:20 | NUR ---
PATIENT RESTING IN BED. PATIENT IS RESPONDING TO VERBAL STIMULI. PATIENT IS AFEBRILE. PATIENT IS COARSE T/O LUNG RAZA. PATIENT HAS PRODUCTIVE COUGH WITH COPIOUS WHITE FROTHY SECRETIONS BEING SUCTIONED. PATIENT IS SATTING 90% OR GREATER ON 4 L NC. NSR/SINUS TACH WITH HR IN HIGH 90S TO LOW 100 TEENS. SBP HAS BEEN 170S-180S. PATIENT RECEIVED PRN HYDRALAZINE FOR THIS. PATIENT BOWEL SOUNDS ARE NORMOACTIVE. PEG TUBE IS IN PLACE WITH JEVITY 1.2 INFUSING AT GOAL RATE OF 45 ML/HR WITH A 30 ML FLUSH EVERY 4 HOURS. RESIDUALS 20 ML REINSTILLED. PATIENT HAS HAD TWO LOOSE INCONTINENT STOOLS TODAY. PATIENT IS INCONTINENT OF URINE AND IS WEARING ATTENDS. NOTED SOME REDNESS IN THE PERNIEAL AREA WHILE CHANGING ATTENDS DURING THIS SHIFT. BABY POWDER WAS APPLIED TO COMBAT THIS. NO OTHER ACUTE CHANGES TO NOTE AT THIS TIME. WILL CONTINUE TO MONITOR
[2018-06-14 17:30] LABS: Magnesium, Blood 2.3 mg/dL (1.6-2.4); Potassium, Blood 3.8 mmol/L (3.5-5.5)
--- NOTE | 2018-06-14 18:42 | NUR ---
SHIFT SUMMARY PATIENT IS RESTING QUIETLY IN BED. PATIENT RESPONDING TO VERBAL STIMULI. PATIENT IS AFEBRILE. PATIENT HAS COARSE LUNG SOUNDS T/O AND CONTINUES TO HAVE COPIOUS WHITE FROTHY SECRETIONS WITH A PRODUCTIVE COUGH BEING SUCTIONED. PATIENT WAS ADMINISTERED SCHEDULED LASIX AND SCOPOLAMINE PATCH TO HELP WITH THIS PROBLEM. PATIENT IS SATTING 90% OR GREATER ON 4 L NC. NSR WITH HR IN THE 90S. SBP 160S. PATIENT RECEIVED PRN HYDRALAZINE TODAY FOR SBP IN THE 170S. BOWEL SOUNDS ARE NORMOACTIVE. PEG TUBE IS IN PLACE INFUSING JEVITY 1.2 GOAL RATE OF 45 ML/HR WITH A 30 ML FLUSH Q4H. RESIDUALS HAVE BEEN BETWEEN 10-20 ML THROUGHOUT THE SHIFT, REINSTILLED. PATIENT HAS HAD 2 LIQUID STOOLS TODAY. CALLAHAN WAS D/C'D THIS SHIFT AND PATIENT HAS BEEN USING ATTENDS FOR INCONTINENCE OF BOTH URINE AND STOOL. NOTED SOME REDNESS IN THE PERINEAL AREA WHILE CHANGING ATTENDS THIS SHIFT AND APPLIED BABY POWDER TO THIS AREA TO HELP WITH THIS. NO OTHER ACUTE CHANGES TO NOTE ON AT THIS TIME. BED LOW. CALL LIGHT IN REACH.
--- NOTE | 2018-06-14 19:00 | NUR ---
ASSUME CARE: REPORT RECIEVED FROM OFF GOING RN FRANKIE, MIGUELITO AND JOEL MARTINI. MONITOR INTACT SHOWING SINUS RHYTHM, HEART RATE 90'S. LUNG SOUNDS COARSE THROUGH OUT. O2 IN PLACE PER 4L/MIN PER NASAL CANNULA. SPPO2 94-97%. ABDOMEN SOFT WITH BOWEL SOUNDS FOUR QUADS. ATTENDS IN PLACE SECONDARY TO INCONTINENCE. PEG TUBE INTACT WITH JEVITY 1.4 INFUSING AT 45ML/HR . 30 ML RESIDUAL REFED WITH ORAL CARE. REMAINS IN SOFT WRIST RESTRAINTS TO PREVENT INADVERTENT REMOVAL OF LINES/TUBES. CONTINUE TO MONITOR AND REPORT CHANGE IN PATIENT CONDITION.
[2018-06-15 04:02] LABS: BASOPHILS ABSOLUTE AUTO 0.07 K/mm3 (0.00-0.23); BASOPHILS PERCENT AUTO 1 % (0-2); EOSINOPHILS ABSOLUTE AUTO 0.03 K/mm3 (0.00-0.68); EOSINOPHILS PERCENT AUTO 0 % (0-6); Hematocrit 35.2 % (37.0-53.0); Hemoglobin 11.5 g/dL (13.5-17.5); IMMATURE GRAN ABSOLUTE AUTO 0.04 K/mm3 (0.00-0.10); IMMATURE GRAN PERCENT AUTO 0 % (0-1); LYMPHOCYTES ABSOLUTE AUTO 1.13 K/mm3 (0.84-5.20); LYMPHOCYTES PERCENT AUTO 11 % (21-46); MONOCYTES ABSOLUTE AUTO 1.31 K/mm3 (0.16-1.47); MONOCYTES PERCENT AUTO 13 % (4-13); Mean Corpuscular HGB 34.8 pg (26.0-34.0); Mean Corpuscular HGB Conc 32.7 g/dL (31.5-36.5); Mean Corpuscular Volume 107 fL (80-100); Mean Platelet Volume 10.7 fL (9.1-12.4); NEUTROPHILS ABSOLUTE AUTO 7.55 K/mm3 (1.96-9.15); NEUTROPHILS PERCENT AUTO 75 % (41-73); Platelet Count 205 K/mm3 (150-400); RDW Coefficient Variation 15.1 % (11.7-14.2); RDW Standard Deviation 60.3 fL (35.1-46.3); White Blood Cell Count 10.13 K/mm3 (4.00-11.30)
[2018-06-15 04:21] LABS: Anion Gap 2 mmol/L (6-16); Blood Urea Nitrogen 10 mg/dL (8-24); CO2, Blood 35 mmol/L (21-32); Calcium, Blood 8.3 mg/dL (8.5-10.1); Chloride, Blood 103 mmol/L (98-108); Creatinine, Blood 0.43 mg/dL (0.60-1.20); Glomerular Filtration Rate >60 (60-); Glucose, Blood 110 mg/dL (70-99); Magnesium, Blood 2.3 mg/dL (1.6-2.4); Phosphorus, Blood 2.6 mg/dL (2.5-4.9); Potassium, Blood 4.3 mmol/L (3.5-5.5); Sodium, Blood 140 mmol/L (136-145)
--- NOTE | 2018-06-15 06:44 | NUR ---
SHIFT SUMMARY: RESTS QUIETLY WHEN UNDISTURBED. MONITOR INTACT SHOWING SINUS RHYTHM. HEART RATE 80'S TF INFUSING AT GOAL RATE OF 45ML/HR JEVITY 1.4 RESIDUALS OF 25,45,AND 50ML REFED WITH ORAL CARE. O2 INTACT AT 4L/MIN PER NASAL CANNULA PER MOUTH. SPO2 90-97% ABDOMEN SOFT WITH BOWEL SOUNDS. DRESSING CHANGED AROUND PEG TUBE. ATTENDS IN PLACE SECONDARY TO INCONTINENCE. GROIN AREA RED. CONTINUE TO MONITOR AND REPORT CHANGE IN PATIENT CONDITION.
[2018-06-15 08:50] LABS: Vancomycin, Trough 13.6 ug/mL (5.0-10.0)
--- NOTE | 2018-06-15 10:43 | NUR ---
PT CONT. TO BE COUGHING UP INTERMITTENTLY WHITE/LIGHT MOSES SX. VIA ORAL SX. PT REMAINS RESTRAINED. CONDOM CATH PLACE BUT WILL FOLLOW. NO CURRENT EVIDENCE OF BLADDER DISTENSION AND ATTENDS IS MOIST. NS TKO VIA PITER PG.
--- NOTE | 2018-06-15 15:26 | NUR ---
PT NOTED WITH SHAKING OF LEGS AND BLINKING OF EYES. LASTING 20-30 SECONDS. PT STOPPED SPONT AND HR NOTED TO BE ELEVATED AND RED IN FACE W/O FEVER. CONT TO COUGH AND WILL FOLLOW.
--- NOTE | 2018-06-15 18:05 | NUR ---
PT PERSISTS TO HAVE COPIOUS ORAL SECREATIONS WHAT HE WILL COUGH UP BUT THE SEEM TO SWALLOW IF NOT THERE TO DEEP ORAL-PHARYNGEAL SX. PT CONDOM CATH REPLACED X2 THIS SHIFT AND CONT TO DRAIN YELLOW CLEAR URINE. PT CONT TO TOLERATE TF AT 45ML. TUBING WAS NOT CHANGED TODAY, DUE 06/16.
--- NOTE | 2018-06-15 20:10 | NUR ---
ASSUMING CARE RECEIVED PT REPORT FROM LIANET MURO. 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 PT IS UNABLE TO FOLLOW COMMANDS TO PARTICIPATE IN CARE. PT IS RESTRAINED AT THIS TIME IN BILATEREAL SOFT WRIST RESTRAINTS FOR PREVENTION OF PULLING ON LINES AND TUBES. PT IS RECEIVING NS AT O FOR INFUSION OF ANTIBIOTICS. PT IS ON 3L O2 VIA NC WITH SPO2 IN THE MID 90'S AT THIS TIME. PT LUNGS ARE COARSE THROUGHOUT. PT HAS COPIOUS ORAL SECRETIONS AND IS REQUIRING FREQUENT DEEP ORAL SUCTIONING FOR MANAGEMENT OF SECRETIONS. PT HAS PEG TUBE IN PLACE AND IS RECEIVING CONTINUOUS FEEDING OF JEVITY AT GOAL RATE OF 45ML/HR. TUBE FEEDING LINE IS POSITIONED TO HELP PREVENT PT FROM PULLING AT LINE. PT HR IS IN THE 90'S AT THIS TIME. PT BP IS IN THE 140'S AT THIS TIME. ASSUMING CARE OF PT AT THE TIME OF SHIFT REPORT. WILL CONTINUE TO MONITOR PT.
--- NOTE | 2018-06-15 23:12 | NUR ---
SEIZURE LIKE ACTIVITY. PT WAS NOTED TO HAVE SEIZURE LIKE ACTIVITY WITH VERY RAPID LEG AND HEAD MOVEMENTS WITH FLUTTERNING OF EYES. PT HR INCREASED TO THE 120'S AND BP INCREASED TO THE 170'S THROUGH EPISODE. SEIZURE LIKE ACTIVITY LASTED FOR APPROX 20 TO 30 SECONDS. MATT POLYMER MATERIALS CONSULTANT CALLED AND INFORMED OF SEIZURE LIKE ACTIVITY. MATT STATED THAT HE WOULD ENTER LABS TO BE DRAWN AND ORDER FOR PRN ATIVAN TO USE IF MORE SEIZURE LIKE ACTIVITY IS NOTED. WILL CONTINUE TO MONITOR PT.
[2018-06-15 23:50] LABS: Prolactin 14.6 ng/mL (2.5-17.4)
[2018-06-16 03:31] LABS: BASOPHILS ABSOLUTE AUTO 0.07 K/mm3 (0.00-0.23); BASOPHILS PERCENT AUTO 1 % (0-2); EOSINOPHILS ABSOLUTE AUTO 0.01 K/mm3 (0.00-0.68); EOSINOPHILS PERCENT AUTO 0 % (0-6); Hematocrit 34.9 % (37.0-53.0); Hemoglobin 11.3 g/dL (13.5-17.5); IMMATURE GRAN ABSOLUTE AUTO 0.05 K/mm3 (0.00-0.10); IMMATURE GRAN PERCENT AUTO 0 % (0-1); LYMPHOCYTES PERCENT AUTO 7 % (21-46); MONOCYTES ABSOLUTE AUTO 1.67 K/mm3 (0.16-1.47); MONOCYTES PERCENT AUTO 13 % (4-13); Mean Corpuscular HGB Conc 32.4 g/dL (31.5-36.5); Mean Corpuscular Volume 108 fL (80-100); NEUTROPHILS ABSOLUTE AUTO 10.21 K/mm3 (1.96-9.15); NEUTROPHILS PERCENT AUTO 79 % (41-73); Platelet Count 208 K/mm3 (150-400); RDW Coefficient Variation 15.3 % (11.7-14.2); RDW Standard Deviation 61.5 fL (35.1-46.3); Red Blood Cell Count 3.23 M/mm3 (4.30-5.90); White Blood Cell Count 12.91 K/mm3 (4.00-11.30)
[2018-06-16 03:49] LABS: Albumin, Blood 2.7 g/dL (3.4-5.0); Anion Gap 4 mmol/L (6-16); Blood Urea Nitrogen 15 mg/dL (8-24); Bun/Creatinine Ratio 28.1 (12.0-20.0); CO2, Blood 34 mmol/L (21-32); Calcium, Blood 8.4 mg/dL (8.5-10.1); Chloride, Blood 104 mmol/L (98-108); Creatinine, Blood 0.53 mg/dL (0.60-1.20); Glomerular Filtration Rate >60 (60-); Glucose, Blood 118 mg/dL (70-99); Phosphorus, Blood 2.8 mg/dL (2.5-4.9); Sodium, Blood 142 mmol/L (136-145)
--- NOTE | 2018-06-16 05:56 | NUR ---
SHIFT SUMMARY NOTE PT HAS HAD COPIOUS SECRETIONS THROUGHOUT THE NIGHT AND HAS REQUIRED FREQUENT ORAL SUCTIONING. PT CONTINUES TO HAVE SCOPOLOMINE PATCH IN PLACE. PER REPORT SECRETIONS APPEAR TO BE REDUCED FROM PREVIOUS SHIFTS. PT CONTINUES TO RECIEVE NS AT TKO. PT IS RECEIVING TUBE FEEDING AT 45ML/HR. PT HAS HAD MINIMAL RESIDUALS THROUGHOUT THE NIGHT. TUBE FEEDING IS RUNNING VIA PEG TUBE. PT LUNG SOUNDS CONTINUE TO BE COARSE THROUGHOUT. PT CONTINUES ON 3L O2 VIA NC. PT SPO2 IS MAINTAINING IN THE MID TO LOW 90'S. PT REMAINS IN RESTRAINTS FOR PREVENTION OF PULLING AT LINES AND TUBES. AT APPROX 2247 PT HAD AN EPISODE OF SEIZURE LIKE ACTIVITY THAT WAS PREVIOUSLY NOTED. PT HAS NOT HAD ANY FURTHER EPISODES OF SEIZURE LIKE ACTIVITY. WILL REPORT OFF TO ONCOMING DAY SHIFT NURSE.
--- NOTE | 2018-06-16 08:05 | NUR ---
Recieved report from Bebo MARTINI. Patient sitting in bed with legs crossed and HOB at 30 degrees. He is non verbal and is in bilateral soft wrist restraints to protect lines and tubes. Released restraints breaiflt to check skin and cirrculation and re-applied. He has copius amounts of secretions he coughs up creamy white and needs constant oral and deep suctioning. He has some upper extremity contractions. He is on 3L O2 via NC and sats low to mid 90%. RT in room now deep suctioning. He has feeding tube left abdomen and is infusing Jevity 1.2 at 45ml/hr with 30ml water flush Q4. He has condom cath in place and attends inplace and is incontinent to stool and urine, no BM in last two days.
--- NOTE | 2018-06-16 09:30 | NUR ---
Patient continues to sit up in bed. Has ongoing productive cough that he swallows quickly and can occassionally catch with suction. VSS. He remains on 3L O2 and sats mid 90%.
--- NOTE | 2018-06-16 11:49 | NUR ---
Patient condom cath came off and Dr Mallory stated to place roper if comes off again and placed 14Fr. foleyt with no difficulty. Patient recieved bath and full linen change.
--- NOTE | 2018-06-16 13:46 | NUR ---
Patients secretions have reduced and he seems to be resting easier. Care giover came by and recieved update. VSS. He remains on 3L O2 and sast low top mid 90%'s. No other significant changes.
--- NOTE | 2018-06-16 16:55 | NUR ---
No significant changes with patient. He squirms around bed and needs to be repositioned frequently. He continues on 2L O2 via NC and sats low to mid 90%. His jevity continues at goal.
--- NOTE | 2018-06-16 19:40 | NUR ---
PM NOTE. ASSUMED CARE OF PT APROX 1900, PT IS A&O TO SELF AND CAREGIVERS, PT IS NONVERBAL AT BASELINE. PT IS IN RESTRAINTS DUE TO CONSTANT PULLING ON HIS IVS, NASAL CANNULA, PEG TUBE, CALLAHAN ETC. TELE INTACT, NSR/ST 90'S-100'S PER EMBROIDERY PATTERNMAKER, PT'S BP 173/86, PT HAS 1+ EDEMA TO HIS BLUE, 2+ TO HIS BILAT FEET AND GENERALIZED EDEMA. PT'S L/S COARSE T/O, PT IS ON 3L NC W/SATS AT 92%. PT IS NPO AND HAS A PEG TUBE, THIS IS RUNING AT 45MLS/HR WITH 30ML WATER FLUSH Q4 HRS. PT REQUIRES ORAL SUCTIONING DUE TO THICK, HEAVY, SPUTUM. 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 BT PRESENT AND HYPOACTIVE, ABD IS SOFT AND NONTENDER TO PALP. PT HAS CALLAHAN DRAINING, CLEAR YELLOW URINE TO GRAVITY. CALL LIGHT IN REACH, BED IS LOCKED AND LOW WILL CONTINUE TO MONITOR.
[2018-06-17 04:06] LABS: BASOPHILS ABSOLUTE AUTO 0.07 K/mm3 (0.00-0.23); BASOPHILS PERCENT AUTO 1 % (0-2); EOSINOPHILS ABSOLUTE AUTO 0.01 K/mm3 (0.00-0.68); EOSINOPHILS PERCENT AUTO 0 % (0-6); Hematocrit 35.8 % (37.0-53.0); Hemoglobin 11.4 g/dL (13.5-17.5); IMMATURE GRAN ABSOLUTE AUTO 0.03 K/mm3 (0.00-0.10); IMMATURE GRAN PERCENT AUTO 0 % (0-1); LYMPHOCYTES ABSOLUTE AUTO 0.96 K/mm3 (0.84-5.20); LYMPHOCYTES PERCENT AUTO 9 % (21-46); MONOCYTES ABSOLUTE AUTO 1.41 K/mm3 (0.16-1.47); MONOCYTES PERCENT AUTO 13 % (4-13); Mean Corpuscular HGB 34.9 pg (26.0-34.0); Mean Corpuscular HGB Conc 31.8 g/dL (31.5-36.5); Mean Corpuscular Volume 110 fL (80-100); Mean Platelet Volume 10.3 fL (9.1-12.4); NEUTROPHILS ABSOLUTE AUTO 8.39 K/mm3 (1.96-9.15); NEUTROPHILS PERCENT AUTO 77 % (41-73); Platelet Count 215 K/mm3 (150-400); RDW Coefficient Variation 15.5 % (11.7-14.2); RDW Standard Deviation 62.4 fL (35.1-46.3); Red Blood Cell Count 3.27 M/mm3 (4.30-5.90); White Blood Cell Count 10.87 K/mm3 (4.00-11.30)
[2018-06-17 04:24] LABS: Anion Gap 5 mmol/L (6-16); Blood Urea Nitrogen 14 mg/dL (8-24); CO2, Blood 31 mmol/L (21-32); Calcium, Blood 8.7 mg/dL (8.5-10.1); Chloride, Blood 107 mmol/L (98-108); Creatinine, Blood 0.45 mg/dL (0.60-1.20); Glomerular Filtration Rate >60 (60-); Glucose, Blood 92 mg/dL (70-99); Magnesium, Blood 2.3 mg/dL (1.6-2.4); Sodium, Blood 143 mmol/L (136-145)
--- NOTE | 2018-06-17 06:34 | NUR ---
SHIFT SUMMARY. NO ACUTE CHANGES NOTED THIS SHIFT. PT HAS HAD SEVERAL LOOSE BMS. PT HAS BEEN IN SOFT WRIST RESTRAINTS ALL SHIFT DUE TO HIM PULLING OFF HIS O2, IVS AND CALLAHAN. PT HAS BEEN HYPERTENSIVE ALL SHIFT. PT HAS BEEN MEDCIATED PER EMAR, PROVIDER WAS CALLED AND NEW ORDERS OBTAINED. PT'S BP RESPONDED WELL TO THE FIRST DOSE OF LABATOLOL, BUT NOW PT'S BP HAS STARTED TO TREND UP. PT'S CALLAHAN IS PATENT AND DRAINING TO GRAVITY, PT'S PEG TUBE IS PATENT AND RUNNING ON [place]ANG[place]OO PUMP AT 45MLS/HR W/30ML FLUSH Q4 HRS. CALL LIGHT IN REACH, BED IS LOCKED AND LOW WILL CONTINUE TO MONITOR UNTIL REPORT IS GIVEN TO ONCOMING RN.
--- NOTE | 2018-06-17 06:47 | NUR ---
PT UPDATE... THIS RN WAS CALLED BY [employer], THEY STATED THAT THE PT HR HAD DROPPED DOWN TO THE 30'S, THIS RN CHECKED ON PT HE WAS SLEEPING, PT WOKE TO GENTAL SHAKE ON THE SHOULDER, PT DID NO APPEARE TO BE SYMPTOMATIC. APROX 5 MINS LATER THE TITLE SEARCHER CALLED THIS RN AGAIN TO SAY THAT THIS PT HAD A 3 SECOND PAUSE. THIS RN CHECK ON THE PT, PT WAS SLEEPING, PT EASILY WOKE AND DID NOT APPEARE TO BE SYMPTOMATIC. PT'S BP IS CURRENTLY 174/79. WILL CONTINUE TO MONITOR
[2018-06-17 09:19] LABS: Vancomycin, Trough 15.2 ug/mL (5.0-10.0)
--- NOTE | 2018-06-17 19:28 | NUR ---
PT ALERT, OPENS EYES ONLY, NONVERBAL, BED REST REPOSITIONED T/O THE DAY, THE PT APPEARS TO BE BREATHING EASILY AT REST ON 4L/MIN O2 VIA NC, THE PT HAS A LOOSE MOIST COUGH, SUCTION IS AT THE BEDSIDE, A SCOPALOMINE PATCH WAS PLACED TODAY TO HELP WITH SECRETIONS, THE PT IS AT A 45 DEGREE POSITION AT ALL TIMES DUE TO ASPIRATON RISK FROM CONTINUOUS TUBE FEEDING, PT TOLERATED THE TUBE FEEDING WELL WITH LITTLE RESIDUALS, THE PT IS RESTRAINED DUE TO PULLING OFF HIS OXYGEN AND CATHETERS, NO OTHER CHANGES NOTICED THIS SHIFT
--- NOTE | 2018-06-18 05:58 | NUR ---
SHIFT SUMMARY PT ALERT, NONVERBAL AT BASELINE, UNABLE TO COMMUNICATE NEEDS. RHONCHI HEARD T/O LUNGS. SPO2 > 92% ON 3L NC W/ DESAT TO 83% UPON O2 SELF REMOVAL. PT MANAGING TO REMOVE NC DESPITE BILAT SOFT WRIST RESTRAINTS. PT VERY GRABBING OF ANYTHING IN REACH, WEARING BILAT SWR TO PREVENT PT REMOVAL OF CORDS/LINES/PEG TUBE. PEG TUBE CONTINUOUSLY INFUSING JEVITY 1.2 @ GOAL RATE OF 45 MLS/HR W/ 30 ML FLUSH Q4H. RESIDUALS < 10 MLS THIS SHIFT. HOB ELEVATED AT 45 DEGREES WHILE TF INFUSING. CALLAHAN CATH PATENT AND DRAINING CLEAR YELLOW URINE. 1 PASTY, BROWN, LOOSE BM THIS SHIFT. WILL CONTINUE TO MONITOR AND PROVIDE CARE UNTIL REPORT OFF TO DAY SHIFT RN.
--- NOTE | 2018-06-18 08:21 | NUR ---
PT SITTING UPRIGHT IN BED WITH LEGS LISA/CROSS. SOFT WRIST RESTRAINTS IN PLACE TO PROTECT LINES. CONTINUOUS FEED TO PEG TUBE RUNNING PER ORDERS. O2 SAT 91% ON 3L NC, DOES NOT APPEAR TO HAVE ANY SOB. COUGH, WILL ATTEMPT SUCTION BUT PT HAS BEEN REFUSING PER NOC RN.
--- NOTE | 2018-06-18 16:58 | NUR ---
SHIFT SUMMARY PT HAS BEEN IN SOFT RESTRAINTS TODAY D/T PT ATTEMPTING TO PULL AT LINES. PT HAS BEEN REMOVING O2 NC THROUGHOUT DAY. FEEDING RUNNING THROUGH PEG TUBE. PT HAS URINE CATHETER, WHICH IS PATENT, SECURED, AND OFF FLOOR. PT WEARS A BRIEF. RESPIRATORY THERAPY IN TO SEE PT SEVERAL TIMES TODAY. CAREGIVER IN TO SEE PT TODAY. PT HAS PRODUCTIVE COUGH. PT HAS BEEN SWALLOWING BEFORE SUCTION CAN BE APPLIED. PT IS NONVERBAL, THIS IS BASELINE.
--- NOTE | 2018-06-18 18:40 | NUR ---
SHIFT SUMMARY PT CONTINUES TO REMOVE NC, O2 SAT LESS THAN 88 ON RA, SOFT WRIST RESTRAINTS IN PLACE AND O2 REPLACED WHEN REMOVED-O2 SAT 92% ON 3L O2. SUCTIONING AND CPT VEST DONE TWICE BY RT-PT TOLERATED WELL. CONTINUOUS FEED RUNNING PER ORDER, RESIDUAL LESS THAN 10ML EACH CHECK.
--- NOTE | 2018-06-19 07:54 | NUR ---
SHIFT SUMMARY PT ALERT. NONVERBAL AT BASELINE. BILAT SWR IN PLACE. PT STILL ABLE TO CONTINUOUSLY REMOVE OX TUBING DESPITE RESTRAINTS. SPO2 AVERAGING 85-91% ON RA/2LNC W/ CONTINUED EFFORTS TO KEEP 2L NC IN PLACE. PT CONTINUES TO HAVE FREQUENT PRODUCTION OF SPUTUM IN WHICH PT QUICKLY SWALLOWS. HOB REMAINS ELEVATED AT 45 DEGREES WITH TF INFUSING VIA PEG TUBE AT 45 ML/HR GOAL RATE W/ 30ML FLUSH Q4H. CALLAHAN CATH PATENT AND DRAINING CLEAR YELLOW URINE. ATTENDS IN PLACE FOR INCTONTINENCE OF STOOL. REPORT GIVEN TO DAY SHIFT RN.
--- NOTE | 2018-06-19 11:19 | NUR ---
AM NOTE PT RESTING QUIETLY CURRENTLY. EARLY AM HE WAS PULLING OXYGEN OFF. AND WAS THRASHING AROUND. HE HAD A LOOSE BM. BELLO AREA EXCORIATED AND CHAPPED. NYSTATIN AND ORANGE CREAM APPLIED. PT URNED EVERY 2 HOURS (EVEN HOURS). [facility] MANUFACTURING CONSULTANT HERE AT 0800. PT HAS MITTEN ON HIS RIGHT HAND D/T HIM SCRATCHING HIS BELLO AREA UNTIL THE SKIN BLEEDS. BILATERAL WRIST RESTRAINTS ON. DURING TURNING, WHEN RESTRAINTS OFF, PT IMMEDIATELY GRABS FOR THE SIDE RAILS AND TRIES TO PULL HIMSELF OVER THE SIDE. LUNSG COARSE T/O PRIOR TO DEEP ORAL SUCTION WITH THE SOFT TUBE FROM THE ORAL CARE KIT. REMOVED A LARGE AMOUNT OF YELLOW, THICK SPUTUM. LUNGS CLEAR AFTER. ABLE TO WEAN OXYGEN TO 2L N/C. R/T PLACED THE BROWN, CANNULA KEEPERS ON PT CHEEKS TO TRY AND RETAIN THE CANNULA IN HIS NOSE. PRIOR TAPE DID NOT HOLD. SAT 94% ON 2L N/C. HOB 45 DEGREES FOR ASPIRATION PRECAUTIONS. ORAL CARE DONE WITH ORAL CARE KIT. SUCTION CANNISTER AND TUBING CHANGED TODAY. PISTON SYRINGE FOR PEG TUBE MEDICATIONS CHANGED. PEG TUBE CARE DONE. SKIN AROUND SITE PINK. SPLIT SPONGE PLACED TO PROTECT SKIN. NO DRAINAGE NOTED FROM PEG TUBE BUTTON. CONTINUE POT.
--- NOTE | 2018-06-19 13:50 | NUR ---
New tube feeding order Order recieved from show worker to increase free water to 100ml/24 hours. Kangaroo pump free water setting changed per order. Continue pot.
--- NOTE | 2018-06-19 17:59 | NUR ---
EVENING NOTE PT ALERT. RESPONDS TO HIS NAME. HE HAS SLEPT MOST OF THE DAY. AWAKENS EASILY. SAT STABLE. DEEP, CONGESTED COUGH. PT HAS NEEDED TO BE NT SUCTIONED SEVERAL TIMES TODAY. CPT DONE. TURNED Q2H TO PROTECT HIS SKIN. BELLO AREA LOOKING LESS RED. 1 STOOL TODAY. CALLAHAN PATENT WITH GOOD OUTPT AFTER THE LASIX THIS AM. TUBE FEEDING INFUSING PER DIRECTION. HOB 45 DEGREES FOR ASPIRATION PRECAUTIONS. OXYGEN TITRATED BETWEEN 2-4L DEPENDING ON WHICH SIDE HE'S LAYING ON. IMPROVED SAT RIGHT SIDE. HEART RATE HAS STEADILY DECLINED. STARTED 107BPM NOW IT'S 81 BPM. BP STABLE. CONTINUE POT.
--- NOTE | 2018-06-20 06:20 | NUR ---
SHIFT SUMMARY PT ALERT, SMILING AT TIMES. NONVERBAL AT BASELINE. LUNG SOUNDS COARSE. SPO2 > 92% ON 4.5L NC. PT TOLERATING NC THIS SHIFT. SLEEPING MAJORITY OF NIGHT. PT NPO. CONTINUOUS JEVITY 1.2 INFUSING @ GOAL RATE OF 45 MLS/HR W/ 100 ML FLUSH Q4H. RESIDUALS < 5MLS. HOB 45 DEGREES WHILE TF INFUSING. CALLAHAN CATH PATENT AND DRAINING. ATTENDS IN PLACE FOR INCONTINENT LOOSE STOOL. BILAT SWR IN PLACE W/ MITT TO R HAND, ASSESSED ROUTINELY PER ORDERS. [facility] RN IN TO CHECK ON PT THIS SHIFT. WILL CONTINUE TO MONITOR AND PROVIDE CARE UNTIL REPORT OFF TO DAY SHIFT RN.
--- NOTE | 2018-06-20 08:17 | NUR ---
RECEIVED REPORT AND ASSUMED CARE OF PATIENT. HE IS SLEEPING, NC IS AT 4.5 LPM, REPLACED O2 SENSOR AND O2 SAT AT 92-94%. WILL CONTINUE TO EVALUATE AND TITRATE DOWN. BL WRIST RESTRAINTS IN PLACE FOR SAFETY, WILL CONTINUE TO EVALUATE AND ASSESS.
[2018-06-20 09:50] LABS: Vancomycin, Trough 19.5 ug/mL (5.0-10.0)
[2018-06-20] MEDS ORDERED: ALBU2.5V5 NEB ×2 (13:42→13:43)
--- NOTE | 2018-06-20 15:19 | NUR ---
PT O2 TITRATED DOWN TO 2 LPM VIA NC. PT IS RESTING EASY AT THIS TIME. NO SIGNS OF DISCOMFORT OR DISTRESS.
--- NOTE | 2018-06-20 18:01 | NUR ---
GAVE HANDOFF REPORT TO LIANET GUIDO, REVIEWED FOLLOW UP APPOINTMENT WITH PCP AND MEDICATION LIST. [facility] TO TRANSPORT PATIENT BACK TO [facility].
--- NOTE | 2018-06-20 19:38 | NUR ---
PT TRANSPORTING WITH [place], GAVE REPORT AND HELPED GET PATIENT ON [facility] FOR TRANSPORT. PT WAS PULLING OFF O2 NC AND ADDITIONALLY WAS COUGHING. SUCTIONED PATIENT ON [facility] AND TRANPORT TOOK PATIENT. THEY DID NOT HAVE O2 ON PATIENT, BY THE TIME HE WAS AT DOORS TO LEAVE PT WAS DESAT TO 78%,THEY SUCTIONED PATIENT AND REMOVED LARGE MUCUS PLUG. THEY PUT NRB MASK AND CHECK WITH ER DOC TO ENSURE OKAY TO TRANSFER PATIENT. DR HAD PATIENT RETURN TO ROOM AND REASSESSED. PT O2 SAT WAS GREATER THAN 96% ON 2LPM, TOOK VITALS AND ENSURED PATIENT WAS AT BASELINE. ENSURED TRANSPORT HAD O2 ON PATIENT AND SENT BL WRIST RESTRAINTS FOR SAFETY DURING TRANSPORT.
== END 2018-06-20 18:55 | disposition home or self-care (01) | DRG 871 ==
LOC: ER 19:34 → ICUE 20:27 → ICUW 20:27 → ICUE 21:50 → PCU 06-16 18:13
PROVIDERS: Emergency Medicine; Internal Medicine; Internal Medicine Critical Care Medicine; Internal Medicine Pulmonary Disease; Nurse Practitioner Acute Care; Pharmacist; ADMIT Hospitalist
PROC: 0BH17EZ Insertion of Endotracheal Airway into Trachea, Via Natural or Artificial Opening (ICD-10-PCS; principal; 2018-06-09)
PROC: 5A1945Z Respiratory Ventilation, 24-96 Consecutive Hours (ICD-10-PCS; 2018-06-09)
DX: A41.9 Sepsis, unspecified organism (principal); J96.02 Acute respiratory failure with hypercapnia; R53.2 Functional quadriplegia; G92 Toxic encephalopathy; J96.01 Acute respiratory failure with hypoxia; R40.20 Unspecified coma; J69.0 Pneumonitis due to inhalation of food and vomit; E87.1 Hypo-osmolality and hyponatremia; J45.901 Unspecified asthma with (acute) exacerbation; R65.20 Severe sepsis without septic shock; E87.5 Hyperkalemia; G80.8 Other cerebral palsy; D63.8 Anemia in other chronic diseases classified elsewhere; R13.10 Dysphagia, unspecified; B95.62 Methicillin resistant Staphylococcus aureus infection as the cause of diseases classified elsewhere; B96.89 Other specified bacterial agents as the cause of diseases classified elsewhere; R56.9 Unspecified convulsions
CPT/HCPCS: 31500; 31720; 36415; 36600; 51702; 71045; 80048; 80053; 80069; 80202; 82330; 82550; 82803; 82947; 83605; 83735; 83880; 84100; 84132; 84146; 85025; 87040; 87070; 87077; 87185; 87186; 87205; 93005; 93010; 93306; 94002; 94003; 94640; 94667; 94668; 94762; 96365-59; 96367-59; 99291-25; 99292; C1751; C9113; J0330; J0360; J0696; J1265; J1650; J1940; J2250; J2543; J2704; J2920; J2930; J3010; J3370; J7030; J7040

== ENCOUNTER 2018-09-15 11:49 | Inpatient (IN) | payer OTHER ==
[~2018-09-15] VITALS: Ht 170.2 cm; Wt 66.2 kg
[~2018-09-15 11:49] MED LIST changes: +ALBU2.5V5 NEB
[2018-09-15 14:44] LABS: BASOPHILS ABSOLUTE AUTO 0.06 K/mm3 (0.00-0.23); BASOPHILS PERCENT AUTO 1 % (0-2); EOSINOPHILS ABSOLUTE AUTO 0.09 K/mm3 (0.00-0.68); EOSINOPHILS PERCENT AUTO 1 % (0-6); Hematocrit 35.9 % (37.0-53.0); Hemoglobin 12.2 g/dL (13.5-17.5); IMMATURE GRAN ABSOLUTE AUTO 0.02 K/mm3 (0.00-0.10); IMMATURE GRAN PERCENT AUTO 0 % (0-1); LYMPHOCYTES PERCENT AUTO 9 % (21-46); MONOCYTES ABSOLUTE AUTO 1.88 K/mm3 (0.16-1.47); MONOCYTES PERCENT AUTO 19 % (4-13); Mean Corpuscular HGB 35.4 pg (26.0-34.0); Mean Corpuscular Volume 104 fL (80-100); Mean Platelet Volume 11.2 fL (9.1-12.4); NEUTROPHILS ABSOLUTE AUTO 6.77 K/mm3 (1.96-9.15); NEUTROPHILS PERCENT AUTO 70 % (41-73); Platelet Count 204 K/mm3 (150-400); RDW Coefficient Variation 13.7 % (11.7-14.2); RDW Standard Deviation 52.4 fL (35.1-46.3); Red Blood Cell Count 3.45 M/mm3 (4.30-5.90); White Blood Cell Count 9.72 K/mm3 (4.00-11.30)
[2018-09-15 15:07] LABS: Alanine Aminotransfer (ALT/SGP 38 U/L (12-78); Albumin, Blood 2.5 g/dL (3.4-5.0); Albumin/Globulin Ratio 0.5 (0.8-1.8); Alk Phos 130 U/L (50-136); Anion Gap 5 mmol/L (6-16); Aspartate Aminotrans (AST/SGOT 32 U/L (12-37); Bilirubin, Total 0.5 mg/dL (0.1-1.0); Blood Urea Nitrogen 16 mg/dL (8-24); Bun/Creatinine Ratio 34.3 (12.0-20.0); CO2, Blood 29 mmol/L (21-32); Calcium, Blood 8.1 mg/dL (8.5-10.1); Chloride, Blood 91 mmol/L (98-108); Creatinine, Blood 0.47 mg/dL (0.60-1.20); Globulin, Blood 5.2 g/dL (2.2-4.0); Glomerular Filtration Rate >60 (60-); Glucose, Blood 98 mg/dL (70-99); Potassium, Blood 5.6 mmol/L (3.5-5.5); Sodium, Blood 125 mmol/L (136-145); Total Protein, Blood 7.7 g/dL (6.4-8.2)
[2018-09-15] MEDS ORDERED: Anti-Diarrheal2 MG PT (20:05)
--- NOTE | 2018-09-16 04:54 | NUR ---
SHIFT SUMMARY PT RESTED WELL T/O NIGHT. DEVELOPMENTAL DELAY. PT NON-VERBAL AT BASELINE. FLACC SCALE DISCOMFORT CONTROLLED WITH X1 IBPUROFEN. NO NAUSEA/EMESIS. PT TURN Q2H. INCONTINENT IN ATTENDS. HEELS FLOATED. HOME MEDICATIONS LIST VERIFIED. BED ALARM ON FOR SAFETY. SCDs IN PLACE. CAREGIVERS FROM HOME IN TO SEE PT FREQUENTLY. AWAITING ORTHO + DIETARY CONSULT TODAY. NADN. PT RESTING AT THIS TIME WITH BED IN LOW POSITION + BED ALARM ON HIGH SETTING FOR SAFETY.
[2018-09-16 05:52] LABS: Hematocrit 34.3 % (37.0-53.0); Hemoglobin 11.4 g/dL (13.5-17.5); Mean Corpuscular HGB 34.5 pg (26.0-34.0); Mean Corpuscular HGB Conc 33.2 g/dL (31.5-36.5); Mean Corpuscular Volume 104 fL (80-100); Mean Platelet Volume 10.8 fL (9.1-12.4); Platelet Count 204 K/mm3 (150-400); RDW Coefficient Variation 13.5 % (11.7-14.2); RDW Standard Deviation 51.1 fL (35.1-46.3); White Blood Cell Count 7.11 K/mm3 (4.00-11.30)
[2018-09-16 06:09] LABS: Anion Gap 4 mmol/L (6-16); Blood Urea Nitrogen 14 mg/dL (8-24); Bun/Creatinine Ratio 29.7 (12.0-20.0); CO2, Blood 32 mmol/L (21-32); Calcium, Blood 8.1 mg/dL (8.5-10.1); Chloride, Blood 92 mmol/L (98-108); Creatinine, Blood 0.47 mg/dL (0.60-1.20); Glomerular Filtration Rate >60 (60-); Glucose, Blood 85 mg/dL (70-99); Potassium, Blood 4.9 mmol/L (3.5-5.5); Sodium, Blood 128 mmol/L (136-145)
--- NOTE | 2018-09-16 10:37 | NUR ---
dr dawson called re if pt can start tube feed or on hold for npo for surg
--- NOTE | 2018-09-16 10:40 | NUR ---
pt ok to start tf put orders on board for flushes and feeding orders due to pt not having any will give pt a feed now and flush will get him on his normal schedule zero residual
--- NOTE | 2018-09-16 11:43 | NUR ---
DR ROCHE BY TO SEE PT TO CALL GENERAL PURCHASING AGENT RE NO SURG
--- NOTE | 2018-09-16 12:17 | NUR ---
conchis sharpefrit mixer and burner from home for the handicap here since pt is nonsurgical asking if pt can discharge back to facility called dr gonzalez ok to discharge back also called [facility]
--- NOTE | 2018-09-16 15:30 | NUR ---
pt transfered to [facility] with [facility] back to homes with the handicaped report given earlier to lili also gave her rx and put copies in for her staff
== END 2018-09-16 15:34 | disposition home or self-care (01) | DRG 542 ==
LOC: ER 11:49 → SURS 16:01
PROVIDERS: Emergency Medicine; ADMIT Family Medicine
DX: M80.052A Age-related osteoporosis with current pathological fracture, left femur, initial encounter for fracture (principal); R53.2 Functional quadriplegia; E87.1 Hypo-osmolality and hyponatremia; J96.11 Chronic respiratory failure with hypoxia; D63.8 Anemia in other chronic diseases classified elsewhere; Z86.14 Personal history of Methicillin resistant Staphylococcus aureus infection; F89 Unspecified disorder of psychological development; G40.909 Epilepsy, unspecified, not intractable, without status epilepticus; I10 Essential (primary) hypertension; Z99.3 Dependence on wheelchair
CPT/HCPCS: 36415; 71046; 80048; 80053; 85025; 85027; 93005; 93010; 94640; 94760; 99285-25; A9270-GY; J1650; J3010

== ENCOUNTER 2018-09-28 10:16 | Emergency (ER) | payer OTHER ==
[~2018-09-28] VITALS: Ht 167.6 cm; Wt 63.5 kg
[~2018-09-28 10:16] MED LIST changes: +Anti-Diarrheal2 MG PT
== END 2018-09-28 20:13 | disposition home or self-care (01) ==
LOC: ER 10:16
DX: Z04.3 Encounter for examination and observation following other accident (principal); S72.002D Fracture of unspecified part of neck of left femur, subsequent encounter for closed fracture with routine healing; Z88.5 Allergy status to narcotic agent; Z79.899 Other long term (current) drug therapy; D64.9 Anemia, unspecified; I10 Essential (primary) hypertension
CPT/HCPCS: 73502; 99283-25

== ENCOUNTER 2020-06-20 15:28 | Inpatient (IN) | payer OTHER, MEDICARE ==
[~2020-06-20] VITALS: Ht 152.4 cm; Wt 61.0 kg
[2020-06-20 16:04] LABS: BASOPHILS ABSOLUTE AUTO 0.07 K/mm3 (0.00-0.23); BASOPHILS PERCENT AUTO 0 % (0-2); EOSINOPHILS ABSOLUTE AUTO 0.08 K/mm3 (0.00-0.68); EOSINOPHILS PERCENT AUTO 0 % (0-6); Hematocrit 38.7 % (37.0-53.0); Hemoglobin 13.4 g/dL (13.5-17.5); IMMATURE GRAN ABSOLUTE AUTO 0.06 K/mm3 (0.00-0.10); IMMATURE GRAN PERCENT AUTO 0 % (0-1); LYMPHOCYTES ABSOLUTE AUTO 0.41 K/mm3 (0.84-5.20); LYMPHOCYTES PERCENT AUTO 2 % (21-46); MONOCYTES ABSOLUTE AUTO 1.62 K/mm3 (0.16-1.47); MONOCYTES PERCENT AUTO 9 % (4-13); Mean Corpuscular HGB 35.7 pg (26.0-34.0); Mean Corpuscular HGB Conc 34.6 g/dL (31.5-36.5); Mean Corpuscular Volume 103 fL (80-100); Mean Platelet Volume 10.3 fL (9.1-12.4); NEUTROPHILS ABSOLUTE AUTO 16.09 K/mm3 (1.96-9.15); NEUTROPHILS PERCENT AUTO 88 % (41-73); Platelet Count 317 K/mm3 (150-400); RDW Coefficient Variation 12.6 % (11.7-14.2); RDW Standard Deviation 47.4 fL (35.1-46.3); Red Blood Cell Count 3.75 M/mm3 (4.30-5.90); White Blood Cell Count 18.33 K/mm3 (4.00-11.30)
[2020-06-20 16:26] LABS: Alanine Aminotransfer (ALT/SGP 59 U/L (12-78); Albumin/Globulin Ratio 0.6 (0.8-1.8); Alk Phos 171 U/L (50-136); Anion Gap 2 mmol/L (6-16); Aspartate Aminotrans (AST/SGOT 45 U/L (12-37); Bilirubin, Total 0.4 mg/dL (0.1-1.0); Blood Urea Nitrogen 18 mg/dL (8-24); Bun/Creatinine Ratio 44.3 (12.0-20.0); CO2, Blood 34 mmol/L (21-32); Calcium, Blood 8.8 mg/dL (8.5-10.1); Chloride, Blood 86 mmol/L (98-108); Creatinine, Blood 0.41 mg/dL (0.60-1.20); Globulin, Blood 5.3 g/dL (2.2-4.0); Glomerular Filtration Rate >60 (60-); Glucose, Blood 151 mg/dL (70-99); Potassium, Blood 5.6 mmol/L (3.5-5.5); Sodium, Blood 122 mmol/L (136-145); Total Protein, Blood 8.3 g/dL (6.4-8.2); Troponin I <0.015 ng/mL (0.000-0.040)
[2020-06-20] MEDS ORDERED: PANT40 PO (17:07)
[2020-06-20] MEDS ORDERED: ROBITUSSIN100 MG/5 M PO (17:08)
[2020-06-20] MEDS ORDERED: IPRAT-ALBUT 0.5-3 ML NEB (17:09)
[2020-06-20] MEDS ORDERED: VITAMIN D3-ALO1 EACH PO (17:09)
[2020-06-20] MEDS ORDERED: LISI5 PT (17:10)
[2020-06-20] MEDS ORDERED: KETO200 (17:10)
[2020-06-20] MEDS ORDERED: DULCOLAX400 MG/5 M PO (17:11)
[2020-06-20] MEDS ORDERED: METO10 PO (17:11)
[2020-06-20] MEDS ORDERED: BISA10S PR (17:11)
[2020-06-20] MEDS ORDERED: CALCIUM CIT 311 EACH PO (17:12)
[2020-06-20] MEDS ORDERED: ZYRTEC10 M2 PT (17:12)
[2020-06-20] MEDS ORDERED: ACETAMINOP160 MG/51 (17:13)
[2020-06-20] MEDS ORDERED: BENADRYL25 MG PO (17:13)
[2020-06-20] MEDS ORDERED: DOCU LIQUI50 MG/5 ML PT (17:14)
[2020-06-20] MEDS ORDERED: PRIMIDONE PT (18:39)
[2020-06-20] MEDS ORDERED: POTA20LUD PT (18:40)
[2020-06-20] MEDS ORDERED: DOXE10 PT (18:41)
[2020-06-20] MEDS ORDERED: METO10 PT (18:43)
--- NOTE | 2020-06-20 21:14 | NUR ---
ADMIT NOTE PT ARRIVED TO PCU FROM ED VIA ED STRETCHER AT APPROX 1930. THE PT WAS SLID FROM ED STRETCHER TO PCU BED BY 4 STAFF. PT ALERT, NON VERBAL, QUADRAPALEGIC. SP02>90% ON 4L NC. PT PULLED OFF NC MULTIPLE TIMES DURING ADMIT/ASSESSMENT. PT HAS PRODUCTIVE COUGH, SUCTIONING AT BEDSIDE, PRODUCING WHITE/GREEN SPUTUM. TELEMETRY READS ST, HR 100'S. SECOND IV NS BOLUS STARTED WELL STARTED VANCO INFUSION. PT IS INCONTINENT, OF BOWEL AND BLADDER. ATTENDS CHANGED. PT ACCOMPANIED BY HOME NURSE, WHO STAYED TO HELP WITH ADMISSION. NURSE STATED ANOTHER SUPPLIER QUALITY ENGINEER WILL COME THIS EVENING. CALL LIGHT IN REACH.
--- NOTE | 2020-06-20 21:20 | NUR ---
PT UPDATE PT JEEP MECHANIC ARRIVED. IN ROOM NOW SUCTIONING PT.
[2020-06-21 04:10] LABS: BASOPHILS ABSOLUTE AUTO 0.07 K/mm3 (0.00-0.23); BASOPHILS PERCENT AUTO 1 % (0-2); EOSINOPHILS ABSOLUTE AUTO 0.15 K/mm3 (0.00-0.68); EOSINOPHILS PERCENT AUTO 1 % (0-6); Hematocrit 32.2 % (37.0-53.0); Hemoglobin 10.8 g/dL (13.5-17.5); IMMATURE GRAN ABSOLUTE AUTO 0.03 K/mm3 (0.00-0.10); IMMATURE GRAN PERCENT AUTO 0 % (0-1); LYMPHOCYTES ABSOLUTE AUTO 0.64 K/mm3 (0.84-5.20); LYMPHOCYTES PERCENT AUTO 6 % (21-46); MONOCYTES ABSOLUTE AUTO 1.08 K/mm3 (0.16-1.47); MONOCYTES PERCENT AUTO 10 % (4-13); Mean Corpuscular HGB 35.3 pg (26.0-34.0); Mean Corpuscular HGB Conc 33.5 g/dL (31.5-36.5); Mean Corpuscular Volume 105 fL (80-100); Mean Platelet Volume 10.3 fL (9.1-12.4); NEUTROPHILS ABSOLUTE AUTO 8.61 K/mm3 (1.96-9.15); NEUTROPHILS PERCENT AUTO 81 % (41-73); Platelet Count 276 K/mm3 (150-400); RDW Coefficient Variation 12.6 % (11.7-14.2); RDW Standard Deviation 48.9 fL (35.1-46.3); Red Blood Cell Count 3.06 M/mm3 (4.30-5.90); White Blood Cell Count 10.58 K/mm3 (4.00-11.30)
[2020-06-21 04:34] LABS: Anion Gap 3 mmol/L (6-16); Blood Urea Nitrogen 11 mg/dL (8-24); Bun/Creatinine Ratio 25.8 (12.0-20.0); CO2, Blood 32 mmol/L (21-32); Calcium, Blood 7.5 mg/dL (8.5-10.1); Chloride, Blood 94 mmol/L (98-108); Creatinine, Blood 0.43 mg/dL (0.60-1.20); Glomerular Filtration Rate >60 (60-); Glucose, Blood 84 mg/dL (70-99); Potassium, Blood 4.4 mmol/L (3.5-5.5); Sodium, Blood 129 mmol/L (136-145); Vancomycin, Random 9.5 ug/mL
--- NOTE | 2020-06-21 06:18 | NUR ---
SHIFT SUMMARY PT ALERT, FOLLOWS DIRECTIONS, NON VERBAL. SP02>90% ON 6L NC. PT MOUTH BREATHES WHILE SLEEPING, NC PLACED IN MOUTH. PT HAS PRODUCTIVE COUGH, SUCTION REQUIRED. FABRIC WORKER SUPERVISOR AT BEDSIDE SUCTIONING PT DURING NIGHT. STAFF DID WELL. TELEMETRY READS SINUS TACH, HR 100'S. PT HAS PEG TUBE, MEDS GIVEN PER ORDERS. FABRIC WORKER SUPERVISOR EXPRESSED CONCERN THAT DIETARY CONSULT WOULD BE IN MORNING, NOT EVENING DURING ADMIT. PT INCONTINENT OF URINE AND BOWEL, C/D ATTENDS IN PLACE. FLUIDS AND ABX INFUSED PER EMAR. PT WAS REPOSITIONED Q2H. CALL LIGHT IN REACH. WILL GIVE REPORT TO ONCOMING NURSE.
--- NOTE | 2020-06-21 08:00 | NUR ---
PT LAYING IN BED, PT LOOKS COMFORTABLE NO SIGNS OF DISTRESS, LUNGS ARE COURSE RHONCI T/O, RESP EVEN AND UNLABORED, OCC WET PRODUCTIVE COUGH, SUCTIONED FREQ, ON R/A, HRR, TELE IN PLACE RUNNING SR PER MONITOR, SEE STRIP, NO EDEMA NOTED, PPP+1, CAP REFILL <3SEC, VS STABLE, AFEBRILE, IV SITE TO RIGHT FA IS CLEAR AND PATENT, BTX4, ABD ROUND SOFT, PEG IN PLACE, FLUSHES WELL, NO RESIDULES, INCONT OF URINE AND STOOL, ATTENDS IN PLACE, SKIN C/W/D, EXT HAVE SOME CONTRACTIONS, STIFF, NADINE, NONVERBAL, CALL LIGHT IN REACH, ORACLE APEX DEVELOPER IN ROOM ASSISTING WITH CARE SUCH SUCTIONING AND TURNING.
--- NOTE | 2020-06-21 18:21 | NUR ---
pt sats were found to be in the low 80's, suction was provided, RT called to room, rox suction was done, 02 turned up to 15 liters, sats 93-94% no further changes. call light in reach.
[2020-06-22 03:57] LABS: Hematocrit 35.1 % (37.0-53.0); Hemoglobin 11.7 g/dL (13.5-17.5); Mean Corpuscular HGB 35.3 pg (26.0-34.0); Mean Corpuscular HGB Conc 33.3 g/dL (31.5-36.5); Mean Corpuscular Volume 106 fL (80-100); Mean Platelet Volume 10.1 fL (9.1-12.4); Platelet Count 304 K/mm3 (150-400); RDW Coefficient Variation 12.5 % (11.7-14.2); Red Blood Cell Count 3.31 M/mm3 (4.30-5.90); White Blood Cell Count 8.97 K/mm3 (4.00-11.30)
[2020-06-22 04:24] LABS: Alanine Aminotransfer (ALT/SGP 48 U/L (12-78); Albumin, Blood 2.5 g/dL (3.4-5.0); Albumin/Globulin Ratio 0.6 (0.8-1.8); Alk Phos 125 U/L (50-136); Anion Gap 0 mmol/L (6-16); Aspartate Aminotrans (AST/SGOT 22 U/L (12-37); Bilirubin, Total 0.2 mg/dL (0.1-1.0); Blood Urea Nitrogen 12 mg/dL (8-24); Bun/Creatinine Ratio 27.2 (12.0-20.0); CO2, Blood 36 mmol/L (21-32); Calcium, Blood 8.1 mg/dL (8.5-10.1); Chloride, Blood 95 mmol/L (98-108); Creatinine, Blood 0.44 mg/dL (0.60-1.20); Globulin, Blood 4.3 g/dL (2.2-4.0); Glomerular Filtration Rate >60 (60-); Glucose, Blood 85 mg/dL (70-99); Magnesium, Blood 2.1 mg/dL (1.6-2.4); Phosphorus, Blood 3.3 mg/dL (2.5-4.9); Potassium, Blood 4.5 mmol/L (3.5-5.5); Sodium, Blood 131 mmol/L (136-145); Total Protein, Blood 6.8 g/dL (6.4-8.2); Vancomycin, Random 10.2 ug/mL
--- NOTE | 2020-06-22 05:45 | NUR ---
SHIFT SUMMARY PATIENT IS A NONVERBAL GENTLEMAN WITH CEREBRAL PALSY. CAN MOVE ALL EXTREMETIES BUT DOES NOT FOLLOW COMMANDS.UNABLE TO ASSESS ORIENTATION STATUS. STATE SUPERINTENDENT OF SCHOOLS AT BEDSIDE. VSS. WEANING O2 ABLE NOW ON 7LHFNC FROM 9L AT START OF SHIFT. SINUS TACHY IN LOW 100S. WEAK COUGH NOTED AND FREQUENT ORAL SUCTIONING PERFORMED. NPO WITH MEDS AND BOLUS FEED GIVEN THROUGH PEG TUBE WITHOUT ISSUE.Q2H TURNS DONE. INCONTINENT OF BOTH. IV ABX INFUSED PER ORDER. NO ACUTE CONCERNS AT THIS TIME. WILL CONTINUE TO MONITOR.
--- NOTE | 2020-06-22 10:07 | NUR ---
ASSUMED CARE FROM AIXA RN, MORNING UPDATE PT WAS SLEEPING DURING MORNING REPORT. PT HAS CAREGIVER AT THE BEDSIDE TO HELP WITH FREQUENT SUCTIONING AND ORAL CARE. PT IS RESTING AT THIS TIME. VS STABLE, PT ON 5L HIGH FLOW
--- NOTE | 2020-06-22 10:41 | NUR ---
RECEIVED REPORT FROM OFF GOING RN AND ASSUMED CARE OF THE PT. THE PT IS RESTING IN BED WITH CAREGIVER AT THE BEDSIDE. PT HAS NO S/S OF ACUTE DISTRESS.
--- NOTE | 2020-06-22 17:30 | NUR ---
Shift Summary Pt has been arousable but fatigued and sleeping most of the day. He opens his eyes to his name. His caregiver at the bedside said that he does slepp a lot at baseline. He has been titrated down to 4 lpm via NC and his Sats have been in the high 90's all day. The caregivers continue to assist with suction at the bedside as the pt is not able to clear his own secretions and often needs suction. He continues with his RT TX. Blous feedings have been given as ordered and HOB has been elevated. IV abo infusing in new IV as the one from this morning was infiltrated. Caregivers remain at the bedside throughout the shift and call for help when needed.
[2020-06-23 04:01] LABS: Hematocrit 35.7 % (37.0-53.0); Hemoglobin 11.8 g/dL (13.5-17.5); Mean Corpuscular HGB 35.5 pg (26.0-34.0); Mean Corpuscular HGB Conc 33.1 g/dL (31.5-36.5); Mean Corpuscular Volume 108 fL (80-100); Platelet Count 289 K/mm3 (150-400); RDW Coefficient Variation 12.4 % (11.7-14.2); RDW Standard Deviation 48.6 fL (35.1-46.3); Red Blood Cell Count 3.32 M/mm3 (4.30-5.90); White Blood Cell Count 7.12 K/mm3 (4.00-11.30)
[2020-06-23 04:26] LABS: Alanine Aminotransfer (ALT/SGP 44 U/L (12-78); Albumin, Blood 2.5 g/dL (3.4-5.0); Albumin/Globulin Ratio 0.6 (0.8-1.8); Alk Phos 123 U/L (50-136); Anion Gap 1 mmol/L (6-16); Aspartate Aminotrans (AST/SGOT 18 U/L (12-37); Bilirubin, Total 0.2 mg/dL (0.1-1.0); Blood Urea Nitrogen 12 mg/dL (8-24); CO2, Blood 35 mmol/L (21-32); Calcium, Blood 8.4 mg/dL (8.5-10.1); Chloride, Blood 94 mmol/L (98-108); Creatinine, Blood 0.35 mg/dL (0.60-1.20); Globulin, Blood 4.5 g/dL (2.2-4.0); Glomerular Filtration Rate >60 (60-); Glucose, Blood 98 mg/dL (70-99); Potassium, Blood 4.3 mmol/L (3.5-5.5); Sodium, Blood 130 mmol/L (136-145)
--- NOTE | 2020-06-23 04:58 | NUR ---
SHIFT SUMMARY PATIENT IS A PLEASANT NONVERBAL MAN WITH CEREBRAL PALSY. FOLLOWS SOME COMMANDS AND MOVES UPPER EXTREMETIES AT WILL. BLE CONTRACTURES NOTED. NSR TO LOW ST ON THE MONITOR. VSS. ABLE TO WEAN O2 DOWN TO 3LNC SATING MID 90'S. FREQUENT ORAL SUCTIONING AND CHEST PT CONTINUE. INCONTINENT OF BOTH. ATTENDS IN PLACE. CAREGIVER AND I WASHED HAIR AND SHAVED PATIENT. Q2H TURNS CONTINUE. BOLUS FEED, MEDS, AND FLUSH THROUGH PEG TUBE PER ORDER. NO ACUTE CONCERNS AT THIS TIME. WILL CONTINUE TO MONITOR.
--- NOTE | 2020-06-23 17:06 | NUR ---
Shift Summary Pt is alert to his baseline and has no s/s of pain or discomfort. He is more awake today and seems to be improving. He is on 2 lpm via NC. The caregivers continue at the bedside assisting with ADLS. The manager sound saw the pt today and made some adjustments to his blous feeding. IV abo have infused as ordered with no issue. Pt is resing in bed with caregiver at the bedside and they call for help when needed.
[2020-06-24 04:17] LABS: BASOPHILS ABSOLUTE AUTO 0.09 K/mm3 (0.00-0.23); BASOPHILS PERCENT AUTO 1 % (0-2); EOSINOPHILS ABSOLUTE AUTO 0.34 K/mm3 (0.00-0.68); EOSINOPHILS PERCENT AUTO 5 % (0-6); Hematocrit 35.8 % (37.0-53.0); Hemoglobin 11.9 g/dL (13.5-17.5); IMMATURE GRAN ABSOLUTE AUTO 0.02 K/mm3 (0.00-0.10); IMMATURE GRAN PERCENT AUTO 0 % (0-1); LYMPHOCYTES ABSOLUTE AUTO 1.19 K/mm3 (0.84-5.20); LYMPHOCYTES PERCENT AUTO 18 % (21-46); MONOCYTES ABSOLUTE AUTO 0.86 K/mm3 (0.16-1.47); MONOCYTES PERCENT AUTO 13 % (4-13); Mean Corpuscular HGB 34.9 pg (26.0-34.0); Mean Corpuscular HGB Conc 33.2 g/dL (31.5-36.5); Mean Corpuscular Volume 105 fL (80-100); Mean Platelet Volume 9.8 fL (9.1-12.4); NEUTROPHILS PERCENT AUTO 63 % (41-73); Platelet Count 300 K/mm3 (150-400); RDW Coefficient Variation 12.2 % (11.7-14.2); RDW Standard Deviation 47.8 fL (35.1-46.3); Red Blood Cell Count 3.41 M/mm3 (4.30-5.90)
[2020-06-24 04:41] LABS: Alanine Aminotransfer (ALT/SGP 40 U/L (12-78); Albumin, Blood 2.4 g/dL (3.4-5.0); Albumin/Globulin Ratio 0.5 (0.8-1.8); Alk Phos 120 U/L (50-136); Anion Gap 2 mmol/L (6-16); Aspartate Aminotrans (AST/SGOT 17 U/L (12-37); Bilirubin, Total 0.2 mg/dL (0.1-1.0); Blood Urea Nitrogen 9 mg/dL (8-24); Bun/Creatinine Ratio 20.9 (12.0-20.0); CO2, Blood 36 mmol/L (21-32); Calcium, Blood 8.4 mg/dL (8.5-10.1); Chloride, Blood 94 mmol/L (98-108); Creatinine, Blood 0.43 mg/dL (0.60-1.20); Globulin, Blood 4.5 g/dL (2.2-4.0); Glomerular Filtration Rate >60 (60-); Glucose, Blood 108 mg/dL (70-99); Potassium, Blood 4.1 mmol/L (3.5-5.5); Sodium, Blood 132 mmol/L (136-145); Total Protein, Blood 6.9 g/dL (6.4-8.2)
--- NOTE | 2020-06-24 05:21 | NUR ---
SHIFT SUMMARY PATIENT IS A NONVERBAL GENTLEMAN WITH CEREBRAL PALSY. FOLLOWS SOME COMMANDS AND MOVES ALL EXTREMETIES TO SOME DEGREE ALTHOUGH SEVERELY CONTRACTED.CAREGIVER AT BEDSIDE HELPING WITH FREQUENT SUCTIONING AND REPOSITIONING. VSS. ON 2LNC SATING LOW 90'S. SUCTIONING AND COUGHING SPELLS BECOMING LESS FREQUENT. NSR ON THE MONITOR. BOLUS FEEDING, MEDS, AND FLUSH THROUGH PEG TUBE WITHOUT ISSUE. Q2H TURNS. SLEPT SEVERAL HOURS SOUNDLY OVERNIGHT. NO ACUTE CONCERNS AT THIS TIME. WILL CONTINUE TO MONITOR.
--- NOTE | 2020-06-24 09:44 | NUR ---
PT NEURO AT BASELINE PER CAREGIVER AT BEDSIDE. NONVERBAL, OPENING EYES TO SOUND AND NAME. PUPILS ROUND AND REACTIVE. MOVING ALL EXTREMITIES TO SOME DEGREE BUT CONTRACTED AT BASELINE. DOES NOT SEEM TO BE IN ANY PAIN. SLEEPING ON AND OFF THROUGHOUT THE MORNING. ON 3 L O2 SATING LOW 90'S. PRODUCTIVE LOOSE COUGH, SUCTIONING PRN. LUNGS SOUNDING COARSE. TELE SHOWING SINUS WITH HR 60'S. Q2 TURNING AND NEEDED. PEG TUBE TO LEFT LOWER QUADRANT, RESIDUALS, FLUSH AND FEEDING PER SCHEDULE. VITAL SIGNS STABLE. CAREGIVER AT BEDSIDE, ASSISTING WITH TURNS AND SUCTION. BED ALARM ON FOR SAFETY. WILL CONTINUE TO MONITOR.
--- NOTE | 2020-06-24 13:25 | NUR ---
AFTERNOON TUBE FEEDING, RESIDUALS 150ML. WILL HOLD TUBE FEEDING FOR 1-2 HOURS AND RECHECK. VITALS SIGNS STABLE. CAREGIVER AT BEDSIDE.
--- NOTE | 2020-06-24 14:45 | NUR ---
RESIDUAL STILL AT 155ML AT THIS TIME. HOLDING FEEDING FOR ANOTHER HOUR AND WILL RECHECK. WILL CONTINUE TO MONITOR. CAREGIVER AT BEDISDE. Q2 TURNING. SUCTIONING NEEDED.
--- NOTE | 2020-06-24 18:51 | NUR ---
PT ALERT TO SELF, OPENING EYES TO NAME AND SOUND. NONVERBAL AT BASELINE. CAREGIVER AT BEDISDE. ON 3 L O2 VIA NASAL CANNULA. MOUTH BREATHING. SATING LOW 90'S. MEDICAL STATUS NO TELE. Q2 TURNING AND NEEDED. 2 BOWL MOVEMENTS THIS SHIFT. BELLO CARE AND LINEN CHANGES. PEG TUBE TO LLQ, RESIDUALS, FLUSH, FEEDS AND MEDS PER SCHEDULE. SEE PREVIOUS NOTES. PATIENT DOES NOT SEEM IN DISTRESS. VITAL SIGNS REMAIN STABLE. WILL CONTINUE TO MONITOR AND REPORT OFF.
--- NOTE | 2020-06-25 05:40 | NUR ---
SHIFT SUMMARY PATIENT IS A PLEASANT NONVERBAL GENTLEMAN WITH CEREBRAL PALSY. CAN VELIZ AT RANDOM BUT DOES NOT FOLLOW COMMANDS. VSS. ON 2L NC WITH LESS FREQUENT SUCTIONING NEEDED OVERNIGHT AND COUGH MUCH IMPROVED. BOLUS TUBE FEEDING HELD FOR TWO HOURS DUE TO RESIDUAL >150ML. MEDS AND FLUSH THROUGH PEG. INCONTINENT OF BOTH. Q2H TURNS CONTINUE. CAREGIVER AT BEDSIDE HELPING WITH TURNS AND SUCTIONING. FALL PRECAUTIONS IN PLACE. NO ACUTE CONCERNS AT THIS TIME. WILL CONTINUE TO MONITOR.
--- NOTE | 2020-06-25 09:46 | NUR ---
PT ALERT TO SELF, OPENING EYES TO SOUND AND NAME. NONVERBAL AT BASELINE. CARGEIVER AT BEDSIDE. 3L O2 SATING LOW 90'S. OCCASIONAL PRODUCTIVE COUGH, USING SUCTION AT BASELINE WITH GOOD OUTPUT. MEDICAL STATUS NO TELE. PT DOES NOT SEEM TO BE IN ANY DISTRESS. PEG TUBE WNL. RESIDUAL, FLUSH, MEDS AND FEED PER PEG TUBE VIA SCHEDULE. SEE DOCUMENTED INTAKE AND OUTPUT. BED BATH THIS AM. ATTENDS IN PLACE. Q2 TURNING AND NEEDED. VITAL SIGNS STABLE. WILL CONTINUE TO MONITOR.
[2020-06-25] MEDS ORDERED: CEFP200 PT (11:23)
[2020-06-25] MEDS ORDERED: Q-Tussin100 MG/5 M PT (11:24)
--- NOTE | 2020-06-25 13:24 | NUR ---
AFTERNOON RESIDUAL 180ML. WILL HOLD 1330 BOLUS TUBE FEED FOR 1 HOUR AND RECHECK. VITAL SIGNS STABLE. NO ACUTE CHANGES AT THIS TIME.
--- NOTE | 2020-06-25 14:43 | NUR ---
RESIDUAL FROM PEG TUBE 160ML. WILL HOLD AFTERNOON BOLUS TUBE FEED AND RECHECK IN 1 HOUR. 30 ML WATER FLUSH TO CLEAR TUBING. NO ACUTE CHANGES.
--- NOTE | 2020-06-25 15:20 | NUR ---
DISCHARGE: SEE PREVIOUS NOTES. PT VITAL STABLE. NO ACUTE CHANGES. 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 PT TRANSFERED TO WHEELCHAIR. ON 2 L O2 SATING MID 90'S. DISCHARGE INSTRUCTIONS REVIEWED WITH NURSE. PT DISCHARGED TO [facility] WITH BELONGINGS.
== END 2020-06-25 15:13 | disposition home or self-care (01) | DRG 871 ==
LOC: ER 15:28 → PCU 18:13 → ENPENDDIS 06-25 10:00 → PCU 06-25 15:13
PROVIDERS: Emergency Medicine; Internal Medicine; Nurse Practitioner Acute Care; ADMIT Internal Medicine
DX: A41.9 Sepsis, unspecified organism (principal); J18.9 Pneumonia, unspecified organism; J96.01 Acute respiratory failure with hypoxia; E87.1 Hypo-osmolality and hyponatremia; I10 Essential (primary) hypertension; D63.8 Anemia in other chronic diseases classified elsewhere; G40.909 Epilepsy, unspecified, not intractable, without status epilepticus; Z20.822 Contact with and (suspected) exposure to COVID-19; G80.8 Other cerebral palsy; R62.50 Unspecified lack of expected normal physiological development in childhood; Z86.14 Personal history of Methicillin resistant Staphylococcus aureus infection; Z93.1 Gastrostomy status; Z99.81 Dependence on supplemental oxygen; Z88.5 Allergy status to narcotic agent; Z79.899 Other long term (current) drug therapy; Z87.01 Personal history of pneumonia (recurrent)
CPT/HCPCS: 31720; 36415; 71045; 80048; 80053; 80202; 83605; 83735; 83880; 84100; 84145; 84484; 85025; 85027; 87040; 87070; 87077; 87081; 87186; 87205; 93005; 93010; 94640; 94667; 94668; 94762; 96365; 99285-25; A9270; J0456; J0696; J1650; J3370; J7030; J7050

== ENCOUNTER 2020-08-17 19:12 | Inpatient (IN) | payer MEDICARE, OTHER ==
[~2020-08-17] VITALS: Ht 157.5 cm; Wt 59.9 kg
[~2020-08-17 19:12] MED LIST changes: +ACETAMINOP160 MG/51; +BENADRYL25 MG PO; +CALCIUM CIT 311 EACH PO; +CEFP200 PT; +DOCU LIQUI50 MG/5 ML PT; +DULCOLAX400 MG/5 M PO; +IPRAT-ALBUT 0.5-3 ML NEB; +KETO200; +METO10 PO; +PANT40 PO; +Q-Tussin100 MG/5 M PT; +ROBITUSSIN100 MG/5 M PO; +VITAMIN D3-ALO1 EACH PO; +ZYRTEC10 M2 PT
[2020-08-17 20:06] LABS: BASOPHILS ABSOLUTE AUTO 0.08 K/mm3 (0.00-0.23); BASOPHILS PERCENT AUTO 0 % (0-2); EOSINOPHILS PERCENT AUTO 0 % (0-6); Hematocrit 40.4 % (37.0-53.0); Hemoglobin 13.9 g/dL (13.5-17.5); IMMATURE GRAN PERCENT AUTO 0 % (0-1); LYMPHOCYTES ABSOLUTE AUTO 0.16 K/mm3 (0.84-5.20); LYMPHOCYTES PERCENT AUTO 1 % (21-46); MONOCYTES ABSOLUTE AUTO 1.39 K/mm3 (0.16-1.47); MONOCYTES PERCENT AUTO 5 % (4-13); Mean Corpuscular HGB 35.5 pg (26.0-34.0); Mean Corpuscular HGB Conc 34.4 g/dL (31.5-36.5); Mean Corpuscular Volume 103 fL (80-100); Mean Platelet Volume 9.9 fL (9.1-12.4); NEUTROPHILS ABSOLUTE AUTO 24.27 K/mm3 (1.96-9.15); NEUTROPHILS PERCENT AUTO 93 % (41-73); Platelet Count 301 K/mm3 (150-400); RDW Standard Deviation 49.1 fL (35.1-46.3); Red Blood Cell Count 3.92 M/mm3 (4.30-5.90)
[2020-08-17 20:28] LABS: Alanine Aminotransfer (ALT/SGP 36 U/L (12-78); Albumin, Blood 3.1 g/dL (3.4-5.0); Albumin/Globulin Ratio 0.6 (0.8-1.8); Alk Phos 150 U/L (50-136); Anion Gap 4 mmol/L (6-16); Aspartate Aminotrans (AST/SGOT 26 U/L (12-37); Bilirubin, Total 0.3 mg/dL (0.1-1.0); Blood Urea Nitrogen 22 mg/dL (8-24); Bun/Creatinine Ratio 54.5 (12.0-20.0); CO2, Blood 31 mmol/L (21-32); Calcium, Blood 8.7 mg/dL (8.5-10.1); Chloride, Blood 88 mmol/L (98-108); Globulin, Blood 5.6 g/dL (2.2-4.0); Glomerular Filtration Rate >60 (60-); Glucose, Blood 125 mg/dL (70-99); Potassium, Blood 5.4 mmol/L (3.5-5.5); Sodium, Blood 123 mmol/L (136-145); Total Protein, Blood 8.7 g/dL (6.4-8.2)
[2020-08-17 22:54] LABS: SARS-Cov-2 (COVID-19) PCR, MMC NEGATIVE (NEGATIVE)
[2020-08-18] MEDS ORDERED: MIRALAX17 GM PO (00:03)
[2020-08-18] MEDS ORDERED: KETO15TC TOP (00:04)
--- NOTE | 2020-08-18 03:00 | NUR ---
ARRIVED TO ICU PT ARRIVED TO ICU 3 AT 2315 VIA ED BED AND TRANSFERED TO ICU BED WITH SLIDE SHEET. PT IS NONVERBAL AT BASELINE BUT REACTIVE TO VERBAL STIMULI AND FOLLOWS/TRACKS WITH HIS EYES. PT ARRIVED ON 6L NC AND SWITCHED TO 6L OXYMIZER AND THAN TITRATED DOWN TO 5L OXYMIZER; RT IN ROOM AND DEEP SUCTIONED, COLLECTED SPUTUM SAMPLE AND SENT TO LAB; CPT PERFORMED WELL. TEMP 100.4. HR 100-115. BP STABLE 111/67. PEG TUBE IN PLACE TO LLQ AND CLAMPED, DRESSING AROUND TUBE SHOWS SLIGHT DISCHARGE; PT CAREGIVER STATES NORMAL WHEN END OF TUBE RUBS AGAINST BARE SKIN. PT INCONTINENT OF URINE; BRIEF CHANGED ONCE ARRIVED. NS INFUSING. CAREGIVER AT BEDSIDE AND HELPFUL WITH HX AND KNOWING PT BASELINE. SEE ADMISSION ASSESSMENT FOR FULL ASSESSMENT.
[2020-08-18 03:47] LABS: Hematocrit 37.3 % (37.0-53.0); Hemoglobin 12.9 g/dL (13.5-17.5); Mean Corpuscular HGB 35.9 pg (26.0-34.0); Mean Corpuscular HGB Conc 34.6 g/dL (31.5-36.5); Mean Corpuscular Volume 104 fL (80-100); Mean Platelet Volume 9.9 fL (9.1-12.4); Platelet Count 264 K/mm3 (150-400); RDW Coefficient Variation 13.2 % (11.7-14.2); RDW Standard Deviation 50.4 fL (35.1-46.3); Red Blood Cell Count 3.59 M/mm3 (4.30-5.90); White Blood Cell Count 27.65 K/mm3 (4.00-11.30)
[2020-08-18 04:10] LABS: Alanine Aminotransfer (ALT/SGP 31 U/L (12-78); Albumin, Blood 2.7 g/dL (3.4-5.0); Albumin/Globulin Ratio 0.5 (0.8-1.8); Alk Phos 117 U/L (50-136); Anion Gap 2 mmol/L (6-16); Aspartate Aminotrans (AST/SGOT 16 U/L (12-37); BAND PERCENT MAN 21 % (0-8); BASOPHILS PERCENT MAN 0 % (0-2); Bilirubin, Total 0.4 mg/dL (0.1-1.0); Blood Urea Nitrogen 20 mg/dL (8-24); Bun/Creatinine Ratio 43.5 (12.0-20.0); CO2, Blood 31 mmol/L (21-32); Calcium, Blood 8.2 mg/dL (8.5-10.1); Chloride, Blood 91 mmol/L (98-108); Creatinine, Blood 0.46 mg/dL (0.60-1.20); EOSINOPHILS PERCENT MAN 0 % (0-6); Glomerular Filtration Rate >60 (60-); Glucose, Blood 115 mg/dL (70-99); LYMPHOCYTES ABSOLUTE MAN 0.55 K/mm3 (0.84-5.20); LYMPHOCYTES PERCENT MAN 2 % (21-46); MONOCYTES ABSOLUTE MAN 1.65 K/mm3 (0.16-1.47); MONOCYTES PERCENT MAN 6 % (4-13); NEUTROPHILS ABSOLUTE MAN 25.43 K/mm3 (1.96-9.15); Potassium, Blood 5.5 mmol/L (3.5-5.5); SEG NEUTROPHILS PERCENT MAN 71 % (41-73); Sodium, Blood 124 mmol/L (136-145); TOTAL CELLS COUNTED 100; Total Protein, Blood 7.7 g/dL (6.4-8.2)
--- NOTE | 2020-08-18 06:31 | NUR ---
END OF SHIFT SUMMARY PT SLEPT ON AND OFF SINCE ARRIVAL TO ICU. AT BASELINE PT IS NON-VERBAL, PT DOES TRACK WITH EYES TO SOUND. MODERATE AMOUNT OF THICK MOSES SECREATIONS T/O SHIFT; WEAK COUGH NOTED; SPO2 >95% ON 5L OXYMIZER. HR 80'S. SBP 110. PEG TUBE DRESSING UNCHANGED. CAREGIVER AT BEDSIDE AND HELPFUL. WILL REPORT TO AM RN WHEN AVAILABLE.
--- NOTE | 2020-08-18 13:17 | NUR ---
PT TRANSFER: NO ACUTE CHANGES T/OUT THIS AM. PT MAINTAINING AIRWAY AND O2 SATS >92%. CPT CONTINUES BY RT W/OUT DIFFICULTY, SUCTIONING OFTEN AND PT TOLERATING WELL. PT RECEIVES STATUS CHANGE TO MEDICAL. ROOM ASSIGNMENT RECEIVED, REPORT GIVEN TO LIANET YANG TO RECEIVE PT. PT DEPARTS IN NAD.
--- NOTE | 2020-08-18 16:51 | NUR ---
PATIENT IS ALERT. HE RESPONDS TO VERBAL STIMULI. HE IS NONVERBAL. ON 5L O2 VIA NC. BREATHING TREATMENTS AND PHYSIOTHERAPY. PATIENT WAS FED THROUGH HIS FEEDING TUBE. 1.5 CARTONS WITH WATER A FLUSH. THE PATIENT HAS A CAREGIVER AT THE BEDSIDEA. WILL CONTINUE TO MONITOR
--- NOTE | 2020-08-18 18:01 | NUR ---
PATIENT IS ALERT AND ORIENTED X2. HE CALLS INAPROPRIATELY. ATTENDS IN PLACE, PATIENT IS INCONTINENT. FEEDER, HAS A POOR APPETITE. PLAN IS TO DC HOME WITH HOSPICE. VSS. WILL CONTINUE TO MONITOR
[2020-08-18 22:38] LABS: Vancomycin, Trough 14.7 ug/mL (5.0-10.0)
[2020-08-19 04:51] LABS: BASOPHILS ABSOLUTE AUTO 0.05 K/mm3 (0.00-0.23); BASOPHILS PERCENT AUTO 1 % (0-2); EOSINOPHILS ABSOLUTE AUTO 0.23 K/mm3 (0.00-0.68); EOSINOPHILS PERCENT AUTO 2 % (0-6); Hematocrit 35.7 % (37.0-53.0); IMMATURE GRAN ABSOLUTE AUTO 0.02 K/mm3 (0.00-0.10); IMMATURE GRAN PERCENT AUTO 0 % (0-1); LYMPHOCYTES ABSOLUTE AUTO 0.82 K/mm3 (0.84-5.20); LYMPHOCYTES PERCENT AUTO 8 % (21-46); MONOCYTES ABSOLUTE AUTO 1.34 K/mm3 (0.16-1.47); MONOCYTES PERCENT AUTO 13 % (4-13); Mean Corpuscular HGB 36.1 pg (26.0-34.0); Mean Corpuscular HGB Conc 33.6 g/dL (31.5-36.5); Mean Corpuscular Volume 108 fL (80-100); NEUTROPHILS ABSOLUTE AUTO 8.24 K/mm3 (1.96-9.15); NEUTROPHILS PERCENT AUTO 77 % (41-73); Platelet Count 231 K/mm3 (150-400); RDW Coefficient Variation 13.2 % (11.7-14.2); RDW Standard Deviation 52.7 fL (35.1-46.3); Red Blood Cell Count 3.32 M/mm3 (4.30-5.90)
[2020-08-19 05:07] LABS: Anion Gap 2 mmol/L (6-16); Blood Urea Nitrogen 19 mg/dL (8-24); Bun/Creatinine Ratio 47.7 (12.0-20.0); CO2, Blood 32 mmol/L (21-32); Calcium, Blood 8.2 mg/dL (8.5-10.1); Chloride, Blood 96 mmol/L (98-108); Glomerular Filtration Rate >60 (60-); Glucose, Blood 95 mg/dL (70-99); Potassium, Blood 4.7 mmol/L (3.5-5.5); Sodium, Blood 130 mmol/L (136-145)
--- NOTE | 2020-08-19 05:11 | NUR ---
MAINSPRING STRIP INSPECTOR SUMMARY NO ACUTE CHANGES THIS SHIFT. CONTINUING IV ABX AND RECIEVED AN ADDITIONAL 500 ML OF NS. SODIUM 130 THIS AM, UP FROM 124 YESTERDAY. PT AAO TO SELF, NON VERBAL AT BASELINE. PT REQUIRES FREQUENT ORAL SUCTIONING FOR THICK SECRETIONS. PT'S CAREGIVER FROM [facility] AT BEDSIDE OFF/ON THROUGH THE NIGHT, ASSISTS WITH SUCTIONING AND ATTENDS CHANGES. VSS, WILL CONTINUE TO MONITOR.
--- NOTE | 2020-08-19 14:42 | NUR ---
review of sandi status with nursing. pt residential team naresh review status.
--- NOTE | 2020-08-19 17:16 | NUR ---
PATIENT IS ALERT. HE IS NON-VERBAL. A CAREGIVER HAS BEEN AT THE BEDSIDE THIS ENTIRE SHIFT. SUCTION NEEDED. 5L O2 VIA HIGH FLOW NC. WHITE/YELLOW SPUTUM. INCONTINENT OF BOWEL AND BLADDER, ATTENDS IN PLACE. A NEW IV WAS PLACED THIS AFTERNOON. PEG TUBE LLQ. CLIP BAKER HAS BEEN CONSULTED. REPOSITION IN BED. WILL CONTINUE TO MONITOR
--- NOTE | 2020-08-20 05:12 | NUR ---
FEE CLERK SUMMARY NO ACUTE CHANGES THIS SHIFT. CONTINUING MAXEPIME AND VANCO IV. TUBE FEED DONE AT BEDTIME, 1 CARTON PER ORDERS. PT REQUIRES ALMOST CONSTANT SUPERVISION HE IS CONSTANTLY REMOVING HIS NASAL CANULA AND REQUIRING FREQUENT ORAL SUCTIONING. CAREGIVER FROM [facility] AT BEDSIDE OFF/ON TO HELP KEEP O2 ON PT AND SUCTION. PT SATS MID 80'S ON RA. SPOKE WITH [facility] RN OSWALD AND GAVE UPDATE ON PT STATUS. VSS, WILL CONTINUE TO MONITOR.
[2020-08-20 09:49] LABS: Magnesium, Blood 2.4 mg/dL (1.6-2.4); Phosphorus, Blood 2.4 mg/dL (2.5-4.9)
[2020-08-20 09:54] LABS: Anion Gap 1 mmol/L (6-16); Blood Urea Nitrogen 11 mg/dL (8-24); Bun/Creatinine Ratio 35.4 (12.0-20.0); CO2, Blood 35 mmol/L (21-32); Calcium, Blood 8.4 mg/dL (8.5-10.1); Chloride, Blood 96 mmol/L (98-108); Creatinine, Blood 0.31 mg/dL (0.60-1.20); Glomerular Filtration Rate >60 (60-); Glucose, Blood 99 mg/dL (70-99); Potassium, Blood 4.5 mmol/L (3.5-5.5); Sodium, Blood 132 mmol/L (136-145)
[2020-08-20] MEDS ORDERED: VISBIOME 112.51 EACH PT (14:55)
[2020-08-20] MEDS ORDERED: SULTRIDS PT (14:58)
--- NOTE | 2020-08-20 19:09 | NUR ---
DISCHARGE DISCHARGE MEDICATIONS AND INSTRUCTIONS EXPLAINED TO CAREGIVER, SHE STATED UNDERSTANDING. PACKET WITH CAREGIVER. PATIENT TRANSFERED TO PRIVATE VEHICLE VIA WHEELCHAIR. PATIENT DISCHARGED WITH [facility]. ORDERS FOR ANTIBIOTIC THERAPY AT [facility].
== END 2020-08-20 18:47 | disposition home or self-care (01) | DRG 871 ==
LOC: ER 19:12 → MEDS 21:39 → ICUW 21:39 → ICUE 23:14 → MEDS 08-18 13:24
PROVIDERS: Emergency Medicine; Family Medicine; Hospitalist; ADMIT Internal Medicine
DX: A41.9 Sepsis, unspecified organism (principal); J96.01 Acute respiratory failure with hypoxia; J69.0 Pneumonitis due to inhalation of food and vomit; J18.9 Pneumonia, unspecified organism; R53.2 Functional quadriplegia; Z20.822 Contact with and (suspected) exposure to COVID-19; E87.1 Hypo-osmolality and hyponatremia; G80.9 Cerebral palsy, unspecified; G40.909 Epilepsy, unspecified, not intractable, without status epilepticus; K22.70 Barrett's esophagus without dysplasia; K21.9 Gastro-esophageal reflux disease without esophagitis; R13.10 Dysphagia, unspecified; E86.1 Hypovolemia; I34.0 Nonrheumatic mitral (valve) insufficiency; R62.50 Unspecified lack of expected normal physiological development in childhood; D63.8 Anemia in other chronic diseases classified elsewhere; I10 Essential (primary) hypertension; Z87.01 Personal history of pneumonia (recurrent); Z88.5 Allergy status to narcotic agent; Z86.14 Personal history of Methicillin resistant Staphylococcus aureus infection; Z93.1 Gastrostomy status; Z79.899 Other long term (current) drug therapy
CPT/HCPCS: 31720; 36415; 71045; 80048; 80053; 80202; 83735; 83880; 84100; 85025; 87040; 87070; 87205; 93005; 93010; 94640; 94667; 94668; 94760; 96365-59; 96367-59; 99285-25; A9270; C1751; J0692; J1650; J1956; J2185; J2543; J3370; J7030; J7040; J7050; U0004

== ENCOUNTER 2020-08-21 03:13 | Day surgery (SDC) | payer OTHER ==
[~2020-08-21 03:13] MED LIST changes: +MIRALAX17 GM PO; +SULTRIDS PT; +VISBIOME 112.51 EACH PT
--- NOTE | 2020-08-21 08:52 | NUR ---
IV SITE TO LEFT AC WRAPPED WITH 2X2'S, COBAN, AND NETTING FOR USE TONIGHT
== END 2020-08-21 17:18 | disposition home or self-care (01) ==
LOC: ATC 03:13
DX: A41.9 Sepsis, unspecified organism (principal); G80.8 Other cerebral palsy; I10 Essential (primary) hypertension; G40.909 Epilepsy, unspecified, not intractable, without status epilepticus; Z86.14 Personal history of Methicillin resistant Staphylococcus aureus infection; Z88.5 Allergy status to narcotic agent
CPT/HCPCS: 96365; J0692

== ENCOUNTER 2020-08-22 00:11 | Day surgery (SDC) | payer OTHER | END 2020-08-22 18:06 | disposition home or self-care (01) | LOC: ATC 00:11 | DX: A41.9 Sepsis, unspecified organism (principal); G80.8 Other cerebral palsy; R62.50 Unspecified lack of expected normal physiological development in childhood; I10 Essential (primary) hypertension; G40.909 Epilepsy, unspecified, not intractable, without status epilepticus; Z86.14 Personal history of Methicillin resistant Staphylococcus aureus infection; Z88.5 Allergy status to narcotic agent | CPT/HCPCS: 96365; J0692 ==

== ENCOUNTER 2020-08-23 04:35 | Day surgery (SDC) | payer OTHER | END 2020-08-23 17:10 | LOC: ATC 04:35 | DX: A41.9 Sepsis, unspecified organism (principal); G90.8 Other disorders of autonomic nervous system; R62.50 Unspecified lack of expected normal physiological development in childhood; I10 Essential (primary) hypertension; G40.909 Epilepsy, unspecified, not intractable, without status epilepticus; Z86.14 Personal history of Methicillin resistant Staphylococcus aureus infection; Z88.5 Allergy status to narcotic agent | CPT/HCPCS: 96365; J0692 ==

== ENCOUNTER 2020-08-24 08:04 | Day surgery (SDC) | payer OTHER | END 2020-08-24 17:09 | disposition home or self-care (01) | LOC: ATC 08:04 | DX: A41.9 Sepsis, unspecified organism (principal); I10 Essential (primary) hypertension | CPT/HCPCS: 96365; J0692 ==

== ENCOUNTER 2020-09-24 20:31 | Inpatient (IN) | payer OTHER ==
[~2020-09-24] VITALS: Ht 147.3 cm; Wt 60.9 kg
[~2020-09-24 20:31] MED LIST changes: -MIRALAX17 GM PO; -PANT40 PO; +Prilosec10 M1 PT
[2020-09-24] MEDS ORDERED: FUROSEMIDE20 MG PT ×2 (20:49)
[2020-09-24] MEDS ORDERED: VITAMIN D31000 UNI1 PT ×2 (20:50)
[2020-09-24 21:31] LABS: BASOPHILS ABSOLUTE AUTO 0.07 K/mm3 (0.00-0.23); BASOPHILS PERCENT AUTO 1 % (0-2); EOSINOPHILS ABSOLUTE AUTO 0.31 K/mm3 (0.00-0.68); EOSINOPHILS PERCENT AUTO 3 % (0-6); Hematocrit 40.7 % (37.0-53.0); IMMATURE GRAN ABSOLUTE AUTO 0.03 K/mm3 (0.00-0.10); IMMATURE GRAN PERCENT AUTO 0 % (0-1); LYMPHOCYTES ABSOLUTE AUTO 1.04 K/mm3 (0.84-5.20); LYMPHOCYTES PERCENT AUTO 10 % (21-46); MONOCYTES ABSOLUTE AUTO 0.92 K/mm3 (0.16-1.47); MONOCYTES PERCENT AUTO 9 % (4-13); Mean Corpuscular HGB Conc 34.4 g/dL (31.5-36.5); Mean Corpuscular Volume 105 fL (80-100); Mean Platelet Volume 9.9 fL (9.1-12.4); NEUTROPHILS ABSOLUTE AUTO 8.26 K/mm3 (1.96-9.15); NEUTROPHILS PERCENT AUTO 78 % (41-73); Platelet Count 264 K/mm3 (150-400); RDW Coefficient Variation 13.2 % (11.7-14.2); RDW Standard Deviation 50.7 fL (35.1-46.3); Red Blood Cell Count 3.89 M/mm3 (4.30-5.90); White Blood Cell Count 10.63 K/mm3 (4.00-11.30)
[2020-09-24 21:49] LABS: Alanine Aminotransfer (ALT/SGP 38 U/L (12-78); Albumin, Blood 2.9 g/dL (3.4-5.0); Albumin/Globulin Ratio 0.5 (0.8-1.8); Alk Phos 170 U/L (50-136); Anion Gap 5 mmol/L (6-16); Aspartate Aminotrans (AST/SGOT 17 U/L (12-37); Bilirubin, Total 0.3 mg/dL (0.1-1.0); Blood Urea Nitrogen 19 mg/dL (8-24); Bun/Creatinine Ratio 42.9 (12.0-20.0); CO2, Blood 30 mmol/L (21-32); Calcium, Blood 8.8 mg/dL (8.5-10.1); Chloride, Blood 90 mmol/L (98-108); Creatinine, Blood 0.44 mg/dL (0.60-1.20); Globulin, Blood 5.7 g/dL (2.2-4.0); Glomerular Filtration Rate >60 (60-); Glucose, Blood 131 mg/dL (70-99); Potassium, Blood 5.1 mmol/L (3.5-5.5); Sodium, Blood 125 mmol/L (136-145); Total Protein, Blood 8.6 g/dL (6.4-8.2); Troponin I <0.015 ng/mL (0.000-0.040)
[2020-09-25 05:58] LABS: BASOPHILS ABSOLUTE AUTO 0.07 K/mm3 (0.00-0.23); BASOPHILS PERCENT AUTO 0 % (0-2); EOSINOPHILS PERCENT AUTO 0 % (0-6); Hematocrit 36.5 % (37.0-53.0); Hemoglobin 12.6 g/dL (13.5-17.5); IMMATURE GRAN ABSOLUTE AUTO 0.12 K/mm3 (0.00-0.10); IMMATURE GRAN PERCENT AUTO 1 % (0-1); LYMPHOCYTES ABSOLUTE AUTO 0.39 K/mm3 (0.84-5.20); LYMPHOCYTES PERCENT AUTO 2 % (21-46); MONOCYTES ABSOLUTE AUTO 1.58 K/mm3 (0.16-1.47); MONOCYTES PERCENT AUTO 6 % (4-13); Mean Corpuscular HGB Conc 34.5 g/dL (31.5-36.5); Mean Corpuscular Volume 104 fL (80-100); Mean Platelet Volume 10.1 fL (9.1-12.4); NEUTROPHILS PERCENT AUTO 92 % (41-73); Platelet Count 252 K/mm3 (150-400); RDW Coefficient Variation 13.2 % (11.7-14.2); RDW Standard Deviation 50.1 fL (35.1-46.3); White Blood Cell Count 26.26 K/mm3 (4.00-11.30)
[2020-09-25 06:18] LABS: Anion Gap 2 mmol/L (6-16); Blood Urea Nitrogen 15 mg/dL (8-24); Bun/Creatinine Ratio 36.4 (12.0-20.0); CO2, Blood 33 mmol/L (21-32); Calcium, Blood 8.3 mg/dL (8.5-10.1); Chloride, Blood 93 mmol/L (98-108); Creatinine, Blood 0.41 mg/dL (0.60-1.20); Glomerular Filtration Rate >60 (60-); Glucose, Blood 121 mg/dL (70-99); Potassium, Blood 4.8 mmol/L (3.5-5.5); Sodium, Blood 128 mmol/L (136-145)
[2020-09-25] MEDS ORDERED: NYSTOP15 GM TOP ×2 (14:04)
[2020-09-25] MEDS ORDERED: MUPIROCIN1 G1 TOP ×2 (14:05)
[2020-09-25] MEDS ORDERED: BENADRYL25 MG (14:06)
[2020-09-25] MEDS ORDERED: PROC25S PR ×2 (14:06)
[2020-09-25] MEDS ORDERED: DIPHEN12.5 MG/7 PO ×2 (14:07)
[2020-09-25] MEDS ORDERED: KETO15TC TOP ×2 (14:08)
[2020-09-25] MEDS ORDERED: DULCOLAX400 MG/5 M PT ×2 (14:10)
[2020-09-25] MEDS ORDERED: TRANSDERM-SCOP1 EAC6 TD ×2 (14:11)
--- NOTE | 2020-09-25 18:32 | NUR ---
NO ACUTE EVENTS SINCE PT WAS ADDMITTED TO 234 THIS AFTERNOON. MRSA, SPUTUM AND URINE SAMPLES SENT TO LAB PER MD ORDERS. PT HAS TO BE TURNED AND ATTENDS CHANGED AT LEAST EVERY 2 HRS PT IS COMPLETELY IMMOBILE AND INCONTENENT. CONTINUOUS SP02 MONITORING IN PLACE, O2 HAS BEEN WEANED DOWN FROM 6L OXYMIZER TO 1L NC BY THIS RN, PT REQUIRES INTERMITTENT ORAL SUCTIONING OF SPUTUM AFTER COUGHING. CAREGIVERS FROM [facility] ARE SOMETIMES ABLE TO SIT WITH THE PT AND HELP WITH HIS CARES. PT IS MOSTLY COOPERATIVE, OPENS HIS EYES TO NAME, AND CAN GRASP WITH HIS HANDS. NONVERBAL AT THIS TIME. BED IN LOWEST POSITION, BED ALARM ON, CALL LIGHT IN REACH. WILL CONTINUE TO MONITOR AND GIVE REPORT TO NOC RN.
--- NOTE | 2020-09-26 03:37 | NUR ---
NOTIFIED AT APPROX 0035 THAT PREVIOUS SPUTUM SAMPLE COLLECTED WAS CONTAMINATED. WHILE ATTEMPTING TO COLLECT A NEW SPUTUM SAMPLE VIA SUCTION WITH ASSISTANCE FROM RT, NOSE BEGAN TO BLEED. PT JERKING AWAY AND UNABLE TO TOLERATE. UNABLE TO COLLECT SAMPLE AT THIS TIME.
--- NOTE | 2020-09-26 06:41 | NUR ---
SHIFT SUMMARY: PT OPENING EYES TO VERBAL STIMULI. UNABLE TO FOLLOW COMMANDS. NON VERBAL. O2 >92% ON 1-3L VIA NC. LUNGS COARSE THROUGHOUT. PT REQUIRING ORAL SUCTION APPROX EVERY 1-2 HOURS. ATTEMPTED TO DEEP SUCTION TO COLLECT SPUTUM SAMPLE, HOWEVER PT UNABLE TO TOLERATE AND BEGAN BLEEDING FROM RT NARE. MEDS GIVEN THROUGH G TUBE PER ORDERS. PT HAD 3 LIQ BM'S THIS SHIFT. BEING REPOSITIONED Q2 HOURS WITH 2 MODERATE ASSIST. PT ABLE TO ASSIST AT TIMES. IV ABX AND IVF INFUSING PER EMAR. PT CURRENTLY APPEARS TO BE RESTING COMFORTABLY ON LEFT SIDE. O2 CURRENTLY AT 96% ON 1L VIA NC.
[2020-09-26 09:46] LABS: BASOPHILS ABSOLUTE AUTO 0.08 K/mm3 (0.00-0.23); BASOPHILS PERCENT AUTO 1 % (0-2); EOSINOPHILS ABSOLUTE AUTO 0.19 K/mm3 (0.00-0.68); EOSINOPHILS PERCENT AUTO 2 % (0-6); Hematocrit 34.9 % (37.0-53.0); Hemoglobin 11.3 g/dL (13.5-17.5); IMMATURE GRAN ABSOLUTE AUTO 0.03 K/mm3 (0.00-0.10); IMMATURE GRAN PERCENT AUTO 0 % (0-1); LYMPHOCYTES ABSOLUTE AUTO 0.89 K/mm3 (0.84-5.20); LYMPHOCYTES PERCENT AUTO 9 % (21-46); MONOCYTES ABSOLUTE AUTO 0.95 K/mm3 (0.16-1.47); MONOCYTES PERCENT AUTO 10 % (4-13); Mean Corpuscular HGB 35.3 pg (26.0-34.0); Mean Corpuscular HGB Conc 32.4 g/dL (31.5-36.5); Mean Platelet Volume 10.1 fL (9.1-12.4); NEUTROPHILS PERCENT AUTO 78 % (41-73); Platelet Count 239 K/mm3 (150-400); RDW Coefficient Variation 13.4 % (11.7-14.2); RDW Standard Deviation 54.4 fL (35.1-46.3); White Blood Cell Count 9.54 K/mm3 (4.00-11.30)
[2020-09-26 09:54] LABS: Mean Corpuscular Volume 109 fL (80-100)
[2020-09-26 10:12] LABS: Anion Gap 4 mmol/L (6-16); Blood Urea Nitrogen 15 mg/dL (8-24); CO2, Blood 33 mmol/L (21-32); Calcium, Blood 7.7 mg/dL (8.5-10.1); Chloride, Blood 100 mmol/L (98-108); Creatinine, Blood 0.54 mg/dL (0.60-1.20); Glomerular Filtration Rate >60 (60-); Glucose, Blood 74 mg/dL (70-99); Sodium, Blood 137 mmol/L (136-145)
--- NOTE | 2020-09-26 10:48 | NUR ---
DISCHARGE INSTRUCTIONS REVIEWED WITH PATIENT AND PRINTED INSTRUCTIONS GIVEN. PT HAS POOR RECALL OF ACTIVITY RESTRICTIONS. HI LITE MARKER USED ON PRINTED INSTRUCTIONS TO HI LITE ACTIVITY RESTRICTIONS. PT TELLS ME A FRIEND WILL BE STAYING WITH HIM AND HE WILL HAVE THEM READ INSTRUCTUIONS AND WILL CALL PCU IF QUESTIONS
--- NOTE | 2020-09-26 13:22 | NUR ---
PT TRANSFERRED TO PCU 6. BELONGINGS TAKEN TO NEW ROOM. REPORT GIVEN TO PCU NURSE.
--- NOTE | 2020-09-26 14:40 | NUR ---
PT TRANSFER TO PCU 6. VITAL SIGNS STABLE. NEURO AT BASELINE. CAREGIVER AT BEDSIDE. TELE SHOWING SINUS WITH HR 60'S. NO SIGNS OF CHEST PAIN. BOWEL TONES PRESENT. PEG TUBE IN PLACE. HOME REGIMEN OF BOLUS TUBE FEED RESUMED. CALL PLACED TO [facility] AND VERIFIED TUBE/WATER FEED SCHEDULE AND UPDATED ORDER. PEG TUBE PATENT. LUNGS SOUNDING COARSE THROUGHOUT. WET GURGLY COUGH, SUCTIONING NEEDED. RESTLESS IN BED, LIKE TO TURN TO LEFT SIDE. REPOSITIONING NEEDED. ATTENDS IN PLACE. NS RUNNING AT 75ML/HR. CALL LIGHT IN REACH FOR PT AND CAREGIVER. DENIES NEEDS AT THIS TIME. WILL CONTINUE TO MONITOR.
[2020-09-26 15:28] LABS: SARS-Cov-2 (COVID-19) PCR, MMC NEGATIVE (NEGATIVE)
--- NOTE | 2020-09-26 16:40 | NUR ---
RESIDUALS CHECKED. 150 RESIDUALS REINSTILLED. WILL WAIT ONE HOUR AND RECHECK RESDUALS AND ATTEMPT 300ML WATER FLUSH.
--- NOTE | 2020-09-26 18:00 | NUR ---
RESIDUALS RECHECK WITH 1800 MEDS. 150ML RESIDUAL REINSTILLED.
--- NOTE | 2020-09-26 19:14 | NUR ---
SHIFT SUMMARY: NO ACUTE CHANGES. PT RECEIVING ZOSYN AND NS AT THIS TIME. NEW IV PLACED. ATTENDS DRY/CLEAN. CARGEIVER AT BEDSIDE. VITAL SIGNS STABLE. TELE REMAINS UNCHANGED. CALL LIGHT IN REACH. SUCTION AT BEDSIDE. REPORTED OFF TO ONCOMING RN.
--- NOTE | 2020-09-27 04:14 | NUR ---
PROVIDER 0100 - RESIDENT JOHANNE NOTIFIED OF PATIENTS CONTINUED PULLING OFF OF OXYGEN AND DESATTING TO HIGH 70'S AT TIMES WELL PT'S OVERALL INCREASED AGITATION, EVEN NOTICED BY CARETAKERS FROM [facility] WHO CARE FOR THE PATIENT AT BASELINE. PT TAKING OFF OXYGEN WITHIN SECONDS AT TIMES OF STAFF PLACING IT BACK ON HIM. BREAKING SPO2 MONITORS. RESIDENT REVIEWED EMAR, THIS RN AND PROVIDER REVIEWED SINEQUAN AND DISCUSSED THE PRN STATUS VS SCHEDULED, WONDERING IF PT IS POSSIBLY W/DRAWING FROM THE TRICYCLIC. 0015 - PT ADMINISTERED SINEQUAN, GUIFENASIN, AND ID TYLENOL PER PROVIDER WISHES. PROVIDER STATES TO ADMINISTER 0.5 ATIVAN IV IF THIS DOES NOT HELP TO CALM PT. 0118 - ATIVAN 0.5MG IV ADMINISTERED 0148 - PROVIDER NOTIFED THAT ALL ORDERED MEDS HAD BEEN ADMINISTERED AND STAFF STILL HAVE HAD TO REMAIN IN ROOM TO KEEP O2 NC ON AND MAINTAIN LINES. PROVIDER AGREES TO BILAT WRIST RESTRAINTS. ALSO STATES TO ADMINISTER 0.5-1MG ATIVAN IV IF NEEDED AFTER PLACEMENT OF RESTRAINTS. 0432 - POST PLACEMENT OF RESTRAINTS. PT HAS BECOME MORE RESTFUL AND APPEARS TO HAVE SLEPT. PT NOT PULLING AT LINES CURRENTLY. PT SPO2 >95% CONSISTENTLY NOW SINCE PT HAS NOT BEEN ABLE TO RIP O2 TUBING OFF. BED ALARM ON. WCTM.
--- NOTE | 2020-09-27 05:20 | NUR ---
SHIFT SUMMARY SEE PROVIDER NOTES. PT ALERT TO BASELINE. IN SR. ON TITRATING SPO2 DEPENDING ON PT STATUS W/ SECRETIONS AND PULLING OFF NC. PEG TUBE REMAINS IN PLACE, BOLUS FEED COMPLETED W/O COMPLICATION. [facility] STAFF OFF AND ON IN ROOM UNTIL AROUND 2200 THIS SHIFT. PT HAS BEEN INCONTINENT OF BOWELS/URINE MULTIPLE TIMES THIS SHIFT. NS INFUSING PER EMAR. SINCE IV ATIVAN, SINEQUAN, AND RESTRAINT PLACEMENT, PT HAS BEEN RESTING AND HAS CALMED DOWN CONSIDERABLY. OTHERWISE, STAFF IN ROOM OFTEN TO SUCTION PT ORALLY AND, DEEP SUCTIONING W/ RT STAFF. OTHERWISE, BED ALARM ON. PT BEING POSITIONED. WCTM.
--- NOTE | 2020-09-27 07:30 | NUR ---
CAREGIVER AT BEDSIDE REQ IF HE CAN COME OUT OF RESTRAINTS STATED YES REMOVED TALKED WITH TRACK MAN WILL CALL AND GET AN ORDER IF THEY LEAVE AND PT DOES NOT HAVE ANYONE IN THERE 14/09
[2020-09-27 07:50] LABS: BASOPHILS ABSOLUTE AUTO 0.05 K/mm3 (0.00-0.23); BASOPHILS PERCENT AUTO 1 % (0-2); EOSINOPHILS PERCENT AUTO 2 % (0-6); Hematocrit 33.9 % (37.0-53.0); IMMATURE GRAN ABSOLUTE AUTO 0.03 K/mm3 (0.00-0.10); IMMATURE GRAN PERCENT AUTO 0 % (0-1); LYMPHOCYTES ABSOLUTE AUTO 0.79 K/mm3 (0.84-5.20); LYMPHOCYTES PERCENT AUTO 9 % (21-46); MONOCYTES ABSOLUTE AUTO 1.09 K/mm3 (0.16-1.47); MONOCYTES PERCENT AUTO 13 % (4-13); Mean Corpuscular HGB 35.6 pg (26.0-34.0); Mean Corpuscular HGB Conc 32.4 g/dL (31.5-36.5); Mean Corpuscular Volume 110 fL (80-100); NEUTROPHILS ABSOLUTE AUTO 6.25 K/mm3 (1.96-9.15); NEUTROPHILS PERCENT AUTO 74 % (41-73); Platelet Count 242 K/mm3 (150-400); RDW Coefficient Variation 13.3 % (11.7-14.2); RDW Standard Deviation 53.2 fL (35.1-46.3); Red Blood Cell Count 3.09 M/mm3 (4.30-5.90); White Blood Cell Count 8.41 K/mm3 (4.00-11.30)
--- NOTE | 2020-09-27 08:00 | NUR ---
DR GARBER BY TO SEE PT HAVING INC PRODUCTIVE COUGHING OXYGEN UP TO 8 FROM 6 BIOX DEC TO 84-88% USING SX RT BY WILL PERFORM DEEP SX TALKED WITH DR GARBER ABOUT REMOVING RESTRAINTS
[2020-09-27 08:11] LABS: Anion Gap 2 mmol/L (6-16); Blood Urea Nitrogen 13 mg/dL (8-24); Bun/Creatinine Ratio 25.6 (12.0-20.0); CO2, Blood 31 mmol/L (21-32); Calcium, Blood 7.7 mg/dL (8.5-10.1); Chloride, Blood 104 mmol/L (98-108); Creatinine, Blood 0.51 mg/dL (0.60-1.20); Glomerular Filtration Rate >60 (60-); Glucose, Blood 82 mg/dL (70-99); Sodium, Blood 137 mmol/L (136-145)
--- NOTE | 2020-09-27 10:51 | NUR ---
PT RESTING HOMES FOR THE HANDICAP NURSE AT BEDSIDE ALONG WITH CAREGIVER
--- NOTE | 2020-09-27 13:10 | NUR ---
MEDS GIVEN PER TUBE AND FEED WITH H20 PT HAD LESS THEN 20 ML RESIDUAL
--- NOTE | 2020-09-27 14:08 | NUR ---
pt resting occ movement per caregiver biox 97-98%
--- NOTE | 2020-09-27 16:13 | NUR ---
rt by to see pt vest tx biox 100% dec to 4 l nc
--- NOTE | 2020-09-27 16:52 | NUR ---
DELFINO NAGEL MOSES
--- NOTE | 2020-09-27 18:00 | NUR ---
90 ml residual 60 ml given with med pt resting
--- NOTE | 2020-09-28 07:42 | NUR ---
SHIFT SUMMARY PT NON-VERBAL THROUGH SHIFT W/SOME GRUNTS. SINUS 60'S THROUGH SHIFT. PT APPEARED COMFORTABLE AND SLEEPY T/O SHIFT. SEVERAL TIMES PT DID REMOVE NC PRIOR TO CAREGIVER MILY AT BEDSIDE W/PT LATE IN NIGHT. PT DESATS QUICKLY OFF OF 4 L VIA NC. DOWN TO 3 L VIA NC THIS AM D/T SATS 96-97% DOES WELL FOR REST OF SHIFT W/CAREGIVER AT BEDSIDE. THIS RN DOES NOT FLUSH G-TUBE D/T EXPRESSED CONCERN REGARDING TO SIGNIFICANT RESIDUALS ON DAY SHIFT. TOTAL OF 120 MLS INSTILLED FOR MEDS THROUGH SHIFT BY THIS RN FOR HOTEL MAINTENANCE ENGINEER AND TO CHECK RESIDUALS. DIFFICULTY W/ADAPTER FOR ANA TUBE THIS AM AFTER CHANGED W/EXTRA TUBING AT BEDSIDE. TUBING IS LONGER THAN PRIOR, VIBRATING W/FLUSH OF 30 MLS FOLLOWING ATTEMPT TO VISUALIZE RESIDUALS. ANA TUBE LEAKED FROM OPENING PRIOR TO APPLICATION OF TUBE SET (ADAPTER). REPORT TO SUDHEER RN INCLUDING CONCERN FOR TUBE SET AND HELD OMEPRAZOLE UNTIL SHORTER TUBING CAN BE OBTAINED TO TRY RESIDUAL AND FLUSH D/T DIFFICULTY W/LONGER TUBING. CAREGIVER MILY SITS AT BEDSIDE W/PT.
--- NOTE | 2020-09-28 11:33 | NUR ---
Report given to Cathie Mckeon. Pt was assessed this morning, and lung sounds are coarse throughout, pt is requiring 3 l/min of oxygen, and when he pulls the o2 off he desaturates to 83-85%
--- NOTE | 2020-09-28 11:50 | NUR ---
ASSUMED CARE OF PATIENT UPON HIS ARRIVAL FROM PCU 8 VIA HIS BED AT 1137, ACCOMPANIED BY CG FROM [facility]. PT'S EYES ARE CLOSED AND HE IS IN THE POSITION ON HIS L SIDE. OPENS HIS EYES TO SPEECH. NS INFUSING AT 75 ML/HR, ZOSYN @ 12.5 ML/HR. WEARING O2 @ 4 L/MIN NC WITH SAT > 92%. NOT COUGHING AT THIS TIME. WEARING ATTENDS, IS CLEAN AND DRY. PEG TUBE COILED NAND COVERED WITH GAUZE. LUNG SOUNDS ARE COARSE. HOB > 30 DEGREES, PATIENT TENDS TO SLIDE DOWN. PILLOWS PLACED ON BONY PROMINENCES.
--- NOTE | 2020-09-28 18:10 | NUR ---
SHIFT SUMMARY: NO ACUTE EVENTS SINCE TRANSFER. CG HAIR AT BEDSIDE THIS AFTERNOON. PT HAD 60 ML TF RESIDUAL AT 1200 AND 1600 FEEDINGS, RE-FED. PEG TUBE PATENT. KEEPS ATTEMPTING TO REMOVE OXYGEN, HAS SOCKS COVERING HIS HANDS. IVF INFUSING. ON 4 L/MIN NC, SAT 95% USING EAR PROBE. HAD 15 MIN COUGHING SPELL THIS AFTERNOON, SUCTIONED CLEAR ORAL SECRETIONS, NO TF. KEEPING HOB > 30 DEGREES. WILL HAVE CG AT BEDSIDE TONIGHT.
--- NOTE | 2020-09-28 21:23 | NUR ---
PHYSICIAN COMMUNICATION CONTACTED BUILDING CLEANER PHYSICIAN, DR DOW, TO NOTIFY HER THAT THE PATIENT IS CONFUSED AND KEEPS PULLING HIS OXYGEN OFF AND DESATS A RESULT. DR DOW ORDERED SOFT WRIST RESTRAINTS FOR THE PATIENT.
--- NOTE | 2020-09-29 06:20 | NUR ---
SHIFT SUMMARY PATIENT ALERT AND ORIENTED TO SELF ONLY. NON-VERBAL. DID NOT APPEAR TO BE IN ANY PAIN. REQUIRED BEING SUCTIONED BY RT. PATIENTS SOFT WRIST RESTRAINTS REMOVED AFTER CAREGIVER ARRIVED TO ENSURE HE DOESN'T PULL HIS OXYGEN OFF. PATIENT CURRENTLY ON 6 LITERS O2 VIA NASAL CANULA. IV PATENT AND INFUSING. BED IN LOWEST POSTIION WITH WHEELS LOCKED AND ALARM ON. CALL LIGHT WITHIN REACH. REPORT GIVEN TO ONCOMING RN.
--- NOTE | 2020-09-29 19:27 | NUR ---
SHIFT SUMMARY: PATIENT WITH CROUPY HACKING COUGH AT TIMES, CLEAR SPUTUM SUCTIONED FROM ORAL CAVITY. HAD REMOVED OWN O2 TODAY WHILE NO CG PRESENT; O2 SAT 70% ON ROOM AIR, REPORTED TO DR. WATSON PER HIS REQUEST. LUNG SOUNDS ARE COARSE CRACKLES, VERY MOIST. EDEMA NOTED IN HANDS AND FEET; IVF STOPPED, WHICH MAY ALSO HELP LUNGS. RASH IN GROIN, MICONAZOLE POWDER ORDERED. TOLERATED TF, MINIMAL RESIDUALS. INCONTINENT OF LARGE LIQUID BM THIS MORNING. HAS CG FROM [facility] AT BEDSIDE.
--- NOTE | 2020-09-30 06:03 | NUR ---
SHIFT SUMMARY PATIENT ALERT AND ORIENTED TO SELF. DID NOT APPEAR TO HAVE ANY PAIN. PATIENT SUCTIONED NEEDED. NO ACUTE ISSUES NOTED. IV PATENT AND FLUSHED. BED IN LOWEST POSITION WITH WHEELS LOCKED AND ALARM ON. CALL LIGHT WITHIN REACH. REPORT GIVEN TO ONCOMING RN.
[2020-09-30] MEDS ORDERED: MICONAZOLE NIT130 GM TOP ×2 (15:12)
[2020-09-30] MEDS ORDERED: VISBIOME 112.51 EACH PO ×2 (15:14)
--- NOTE | 2020-09-30 18:40 | NUR ---
JEAN MARIE BANDA- JUNI HAS SLEPT MOST OF THIS SHIFT. HE HAS CAREGIVERS AT BEDSIDE FOR THE DURATION OF THIS SHIFT. HE IS INC AND REQUIRES ATTENDS CHANGES. HE IS NPO AND RECIEVING BOLIS FEEDINGS. HE IS PENDING DISCHARGE.
--- NOTE | 2020-09-30 20:00 | NUR ---
DISCHARGE PT D/C'D, TRANSPORT VIA [facility]. BELONGINGS SENT WITH PT'S NURSE.
== END 2020-09-30 21:04 | disposition home or self-care (01) | DRG 871 ==
LOC: ER 20:31 → ERHOLD 23:20 → PCU 23:20 → MEDS 23:20 → SURS 23:20 → PCU 09-25 12:33 → SURS 09-25 12:34 → PCU 09-26 13:44 → MEDS 09-28 11:25 → ENPENDDIS 09-30 12:19 → MEDS 09-30 21:04
PROVIDERS: Emergency Medicine; Family Medicine; ADMIT Family Medicine
DX: A41.9 Sepsis, unspecified organism (principal); J96.01 Acute respiratory failure with hypoxia; J69.0 Pneumonitis due to inhalation of food and vomit; G80.8 Other cerebral palsy; J18.9 Pneumonia, unspecified organism; E87.1 Hypo-osmolality and hyponatremia; R62.50 Unspecified lack of expected normal physiological development in childhood; D63.8 Anemia in other chronic diseases classified elsewhere; I34.0 Nonrheumatic mitral (valve) insufficiency; Z20.822 Contact with and (suspected) exposure to COVID-19; R13.10 Dysphagia, unspecified; G40.909 Epilepsy, unspecified, not intractable, without status epilepticus; K21.9 Gastro-esophageal reflux disease without esophagitis; I50.9 Heart failure, unspecified; H26.9 Unspecified cataract; I11.0 Hypertensive heart disease with heart failure; Z86.14 Personal history of Methicillin resistant Staphylococcus aureus infection; Z88.5 Allergy status to narcotic agent; Z87.01 Personal history of pneumonia (recurrent); Z93.1 Gastrostomy status; Z79.899 Other long term (current) drug therapy
CPT/HCPCS: 31720; 36415; 71045; 71046; 80048; 80053; 83605; 83880; 84484; 85025; 87040; 87070; 87077; 87086; 87186; 87205; 93005; 93010; 94640; 94667; 94668; 94760; 94761; 94762; 96372; 96374; 96376; 99285-25; A9270; J0295; J1650; J2060; J2543; J3370; J7030; U0004

== ENCOUNTER 2020-10-01 01:41 | Day surgery (SDC) | payer OTHER ==
[~2020-10-01 01:41] MED LIST changes: +BENADRYL25 MG; +DIPHEN12.5 MG/7 PO; +DULCOLAX400 MG/5 M PT; +FUROSEMIDE20 MG PT; +MICONAZOLE NIT130 GM TOP; +MUPIROCIN1 G1 TOP; +NYSTOP15 GM TOP; +TRANSDERM-SCOP1 EAC6 TD; +VISBIOME 112.51 EACH PO; +VITAMIN D31000 UNI1 PT
== END 2020-10-01 16:38 | disposition home or self-care (01) ==
LOC: ATC 01:41
DX: J15.212 Pneumonia due to Methicillin resistant Staphylococcus aureus (principal); G80.9 Cerebral palsy, unspecified; G80.8 Other cerebral palsy; D63.8 Anemia in other chronic diseases classified elsewhere; I10 Essential (primary) hypertension; Z93.1 Gastrostomy status
CPT/HCPCS: 96365; J0713

== ENCOUNTER 2020-10-01 21:29 | Emergency (ER) | payer OTHER ==
[~2020-10-01] VITALS: Ht 160 cm; Wt 65.8 kg
== END 2020-10-02 00:09 | disposition home or self-care (01) ==
LOC: ER 21:29
DX: Z00.00 Encounter for general adult medical examination without abnormal findings (principal); I10 Essential (primary) hypertension; Z88.5 Allergy status to narcotic agent
CPT/HCPCS: 71045; 99284-25

== ENCOUNTER 2020-10-10 17:51 | Inpatient (IN) | payer OTHER ==
[~2020-10-10] VITALS: Ht 121.9 cm; Wt 68.0 kg
[2020-10-10 18:21] LABS: BASOPHILS ABSOLUTE AUTO 0.08 K/mm3 (0.00-0.23); BASOPHILS PERCENT AUTO 1 % (0-2); EOSINOPHILS ABSOLUTE AUTO 0.07 K/mm3 (0.00-0.68); EOSINOPHILS PERCENT AUTO 1 % (0-6); Hematocrit 38.7 % (37.0-53.0); Hemoglobin 12.2 g/dL (13.5-17.5); IMMATURE GRAN ABSOLUTE AUTO 0.03 K/mm3 (0.00-0.10); IMMATURE GRAN PERCENT AUTO 0 % (0-1); LYMPHOCYTES ABSOLUTE AUTO 1.38 K/mm3 (0.84-5.20); LYMPHOCYTES PERCENT AUTO 11 % (21-46); MONOCYTES ABSOLUTE AUTO 1.67 K/mm3 (0.16-1.47); MONOCYTES PERCENT AUTO 13 % (4-13); Mean Corpuscular HGB 35.6 pg (26.0-34.0); Mean Corpuscular HGB Conc 31.5 g/dL (31.5-36.5); Mean Corpuscular Volume 113 fL (80-100); Mean Platelet Volume 11.1 fL (9.1-12.4); NEUTROPHILS ABSOLUTE AUTO 9.33 K/mm3 (1.96-9.15); NEUTROPHILS PERCENT AUTO 74 % (41-73); Platelet Count 393 K/mm3 (150-400); RDW Coefficient Variation 14.1 % (11.7-14.2); RDW Standard Deviation 57.6 fL (35.1-46.3); Red Blood Cell Count 3.43 M/mm3 (4.30-5.90); White Blood Cell Count 12.56 K/mm3 (4.00-11.30)
[2020-10-10 18:33] LABS: Alanine Aminotransfer (ALT/SGP 39 U/L (12-78); Albumin, Blood 2.8 g/dL (3.4-5.0); Albumin/Globulin Ratio 0.5 (0.8-1.8); Alk Phos 136 U/L (50-136); Anion Gap 7 mmol/L (6-16); Aspartate Aminotrans (AST/SGOT 29 U/L (12-37); Bilirubin, Total 0.3 mg/dL (0.1-1.0); Blood Urea Nitrogen 19 mg/dL (8-24); Bun/Creatinine Ratio 40.5 (12.0-20.0); CO2, Blood 35 mmol/L (21-32); Calcium, Blood 8.9 mg/dL (8.5-10.1); Chloride, Blood 90 mmol/L (98-108); Creatinine, Blood 0.47 mg/dL (0.60-1.20); Globulin, Blood 5.3 g/dL (2.2-4.0); Glomerular Filtration Rate >60 (60-); Glucose, Blood 226 mg/dL (70-99); Potassium, Blood 5.1 mmol/L (3.5-5.5); Sodium, Blood 132 mmol/L (136-145); Total Protein, Blood 8.1 g/dL (6.4-8.2)
[2020-10-10 19:23] LABS: International Normalized Ratio 1.1; Prothrombin Time Results 11.8 Sec (9.7-11.5)
[2020-10-10 19:48] LABS: SARS-Cov-2 (COVID-19) PCR, MMC NEGATIVE (NEGATIVE)
[2020-10-10 21:04] LABS: PCO2 Arterial 67.7 mmHg (35-45); PO2 Arterial 62.9 mmHg (80-100); pH Blood Arterial 7.31 (7.35-7.45)
[2020-10-11 05:48] LABS: Hematocrit 29.7 % (37.0-53.0); Hemoglobin 9.8 g/dL (13.5-17.5); Mean Corpuscular HGB 35.1 pg (26.0-34.0); Mean Platelet Volume 11.2 fL (9.1-12.4); Platelet Count 323 K/mm3 (150-400); RDW Coefficient Variation 13.8 % (11.7-14.2); RDW Standard Deviation 52.4 fL (35.1-46.3); Red Blood Cell Count 2.79 M/mm3 (4.30-5.90); White Blood Cell Count 9.23 K/mm3 (4.00-11.30)
[2020-10-11 05:50] LABS: Mean Corpuscular Volume 107 fL (80-100)
[2020-10-11 06:04] LABS: Alanine Aminotransfer (ALT/SGP 43 U/L (12-78); Albumin, Blood 2.1 g/dL (3.4-5.0); Albumin/Globulin Ratio 0.5 (0.8-1.8); Alk Phos 87 U/L (50-136); Anion Gap 8 mmol/L (6-16); Aspartate Aminotrans (AST/SGOT 25 U/L (12-37); Bilirubin, Total 0.7 mg/dL (0.1-1.0); Blood Urea Nitrogen 21 mg/dL (8-24); Bun/Creatinine Ratio 36.7 (12.0-20.0); CO2, Blood 30 mmol/L (21-32); Calcium, Blood 8.2 mg/dL (8.5-10.1); Chloride, Blood 94 mmol/L (98-108); Creatinine, Blood 0.57 mg/dL (0.60-1.20); Globulin, Blood 4.3 g/dL (2.2-4.0); Glomerular Filtration Rate >60 (60-); Glucose, Blood 104 mg/dL (70-99); Potassium, Blood 4.9 mmol/L (3.5-5.5); Sodium, Blood 132 mmol/L (136-145); Total Protein, Blood 6.4 g/dL (6.4-8.2)
[2020-10-11 06:14] LABS: BAND PERCENT MAN 14 % (0-8); BASOPHILS ABSOLUTE MAN 0.09 K/mm3 (0.00-0.23); BASOPHILS PERCENT MAN 1 % (0-2); EOSINOPHILS PERCENT MAN 0 % (0-6); LYMPHOCYTES % ATYPICAL MANUAL 1 % (0-0); LYMPHOCYTES ABSOLUTE MAN 0.83 K/mm3 (0.84-5.20); LYMPHOCYTES PERCENT MAN 8 % (21-46); MONOCYTES ABSOLUTE MAN 1.19 K/mm3 (0.16-1.47); MONOCYTES PERCENT MAN 13 % (4-13); MYELOCYTE ABSOLUTE MAN 0.09 K/mm3 (0.00-0.00); MYELOCYTE PERCENT MAN 1 % (0-0); NEUTROPHILS ABSOLUTE MAN 7.01 K/mm3 (1.96-9.15); SEG NEUTROPHILS PERCENT MAN 62 % (41-73); TOTAL CELLS COUNTED 100
--- NOTE | 2020-10-11 17:11 | NUR ---
Pt in ER room 10, along with Dr. Saenz and her clinical project assistant, ER Nurse, myself, and Lupe from [facility]. Pt was medicated for comfort and the ventilator removed by RT. He initially began to desaturate, but within approx 5 minutes, pt's 02 improved to 94% on 15L's non rebreather mask, and his HR improved as well. Pt does appear to be resting comfortably at this time. Plan to continue to monitor for pain, anxiety, air hunger.
[2020-10-11 21:50] LABS: Vancomycin, Trough 15.6 ug/mL (5.0-10.0)
--- NOTE | 2020-10-12 04:38 | NUR ---
PT ARRIVED TO [facility] FLOOR AT 2350 FROM ER. SLID FROM ER [facility] TO [facility] BED WITH 3 STAFF ASSIST AND SLIDE SHEET. CAREGIVER FROM [facility] AT BEDSIDE. PT IS ON OXYGEN VIA NON-REBREATHER MASK AT 15 LPM. NO SIGNS OF DISTRESS, NON RESPONSIVE TO VERBAL STIMULI. POSITIONED TO LEFT SIDE.
--- NOTE | 2020-10-12 04:41 | NUR ---
CALLAHAN IN PLACE AND DRAINING YELLOW URINE. CAREGIVER FROM [facility] AT BEDSIDE. NON-REBREATHER MASK AT 15 LPM. PT IS UNRESPONSIVE TO VERBAL STIMULI. REPOSITIONED TO RIGHT SIDE.
--- NOTE | 2020-10-12 04:42 | NUR ---
NO SIGNS OF DISTRESS OR DISCOMFORT, NON RESPONSIVE TO VERBAL STIMULI. PT IS POSITIONED SUPINE. NON-REBREATHER MASK AT 15 LPM. NO SIGNS OF SECRETIONS SUCH COUGHING OR EXCESSIVE DROOLING. CAREGIVER AT BEDSIDE FROM [facility].
--- NOTE | 2020-10-12 07:40 | NUR ---
PT AT 0645. [facility] CAREGIVER AT BEDSIDE. CHARGE NURSE NOTIFIED, WHO CALLED PHYSICIAN. SENIOR JAVA J2EE DEVELOPER FABIÁN FROM [facility] NOTIFIED, STATED THAT MORTUARY PREFERENCE IS [facility] IN [place]. REPORT GIVEN TO DAY SHIFT NURSE.
--- NOTE | 2020-10-12 07:43 | NUR ---
PT SHOWS NO SIGN OF PAIN OR DISCOMFORT. POSITIONED SUPINE. REBREATHER MASK AT 15LPM. CAREGIVER FROM [facility] IS AT BEDSIDE.
--- NOTE | 2020-10-12 11:53 | NUR ---
Call back rounding - Pt had passed before comfort care referral could be completed. RN stated pt's family had already come to see pt and home was in route.
== END 2020-10-12 06:45 | DRG 871 ==
LOC: ER 17:51 → ERHOLD 21:00 → MEDS 21:00
PROVIDERS: Family Medicine; Student in an Organized Health Care Education/Training Program; ADMIT Hospitalist
PROC: 0BH18EZ Insertion of Endotracheal Airway into Trachea, Via Natural or Artificial Opening Endoscopic (ICD-10-PCS; principal; 2020-10-10)
PROC: 5A1935Z Respiratory Ventilation, Less than 24 Consecutive Hours (ICD-10-PCS; 2020-10-10)
PROC: 3E033XZ Introduction of Vasopressor into Peripheral Vein, Percutaneous Approach (ICD-10-PCS; 2020-10-10)
DX: A41.02 Sepsis due to Methicillin resistant Staphylococcus aureus (principal); R65.21 Severe sepsis with septic shock; J69.0 Pneumonitis due to inhalation of food and vomit; J96.01 Acute respiratory failure with hypoxia; J18.9 Pneumonia, unspecified organism; E87.1 Hypo-osmolality and hyponatremia; Z66 Do not resuscitate; Z20.822 Contact with and (suspected) exposure to COVID-19; K22.70 Barrett's esophagus without dysplasia; Z51.5 Encounter for palliative care; F41.9 Anxiety disorder, unspecified; Z88.5 Allergy status to narcotic agent; Z79.899 Other long term (current) drug therapy; G80.8 Other cerebral palsy; Z78.1 Physical restraint status
CPT/HCPCS: 36415; 36600; 51702; 71045; 80053; 80202; 82803; 83605; 84145; 85025; 85610; 85730; 87040; 87070; 87077; 87186; 87205; 93005; 93010; 94003; 96361; 96365; 96366; 96375; 96376; 99285-25; 99291-25; A9270; J0295; J0692; J0713; J1650; J2060; J2250; J2270; J2704; J3010; J3370; J7030; J7050; J7060; J7120; U0004